=== PATIENT | female | born 1935 | race Caucasian/White ===

== ENCOUNTER 2020-04-25 22:05 | Inpatient (IN) | payer MEDICARE, SELFPAY ==
[2020-04-25 22:06] VITALS: BP 171/62; PULSE 69; RESP 18; TEMP 37.1; O2SAT 95; BMI 28.6
--- NOTE | 2020-04-25 22:35 | RAD_ITS ---
STUDY: X-RAY - PELVIS AND LEFT HIP REASON FOR EXAM: Female, 85 years old. fall today. left hip pain. TECHNIQUE: 3 views of the pelvis and hip. COMPARISON: None. FINDINGS: Fracture of the left superior and inferior pubic symphysis, age indeterminate. No additional fracture. Hip joints are well-maintained. No dislocation. Soft tissues and bony structures are otherwise unremarkable. RAD/HIP, UNI W/ Pelvis 2-3 Views IMPRESSION: Suspected fractures of the left superior and inferior pubic rami, age indeterminate. Electronically Signed: Jada Rider MD at 22:57 EST Tel , Service support ,
--- NOTE | 2020-04-25 23:29 | ED.DCSUM_ITS ---
- ER Visit Summary Date of Service: 04/25/20 Chief Complaint: Fall History of Present Illness: The patient is a 85 F presenting after mechanical fall. Patient states she turned quickly in her kitchen and fell onto her left hip. She was unable to get up and EMS was called. She denies hitting her head or losing consciousness. She is not on anticoagulants. Denies symptoms prior to the fall. She complains of left hip and left medial thigh pain. Denies other injuries. Physical Examination: Vitals are stable. Patient is afebrile. Alert no acute distress. HEENT exam is unremarkable. Neck is nontender Lungs are clear and equal bilaterally. Heart is regular rate and rhythm. Abdomen is soft nontender nondistended. Extremities left medial thigh tenderness. Painful range of motion. Normal distal pulses Skin is warm and dry. No focal neurologic deficit. Remainder of exam is unremarkable. Emergency Department Course and Treatment: Patient is given morphine, Zofran IV. Left hip x-ray was interpreted by myself and radiology suspected fractures of the left superior and inferior pubic rami, age indeterminate. Patient is unable to ambulate with a walker in the emergency department. Discussed with the hospitalist for observation. Disposition: Observation Impression: Status post mechanical fall, left superior and inferior pubic rami fracture, inability to ambulate This note was generated with [employer] dictation software. It may contain incorrect words, spelling, and punctuation that were not noted in review of the chart prior to signing ED Disposition - Plan for ED Patient: Referrals: Naren Mendez PA [Primary Care Provider] -
--- NOTE | 2020-04-25 23:29 | HP.PCM_ITS ---
Problem List (1) Fall Status: Acute (2) Pubic ramus fracture Status: Acute History of Present Illness Date of Admission: 04/25/20 Chief Complaint: FALL The patient is a 85 year old F with a significant history of hypertension; osteoporosis; and hyperlipidemia who presents emergency department with a fall. 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 She reports excruciating pain at the left hip to the point that she could not get up immediately. The pain at the left hip worsens with movement and it improves with rest. Per emergent department doctor patient could not walk so admission was recommended. Past Medical History Medical History: Medical History (Last Updated 04/26/20 @ 02:[address] Wesly Monae MD) HTN (hypertension) I10 Allergies clarithromycin [From Biaxin] Allergy (Mild, Verified 08/02/13 19:22) Hives Home Medications: Ambulatory Orders Medication Instructions Recorded Vitamin D QWEEK 08/02/13 Atenolol [Tenormin (beta Alexander)] 25 mg PO DAILY 04/25/20 Hydrochlorothiazide [Hctz] 25 mg PO DAILY 04/25/20 Pravastatin [Pravachol] 20 mg PO DAILY 04/25/20 Alendronate Sodium [Fosamax] 70 mg QWEEK 04/26/20 Surgical History: appendectomy, herniorrhaphy Smoking Status: Former smoker Alcohol: Occasional - *Family History Maternal History Items: Cancer - Breast Paternal History Items: - - His father had his leg amputated after an accident. Review of Systems Constitutional: Denies: Chills, Fever, Weight Change HEENT: Denies: Head Aches, Sinus Congestion, Sinus Drainage Cardiovascular: Denies: Chest Pain, Palpitations Respiratory: Denies: Cough, Shortness of breath at rest, Sputum production Gastrointestinal: Denies: Abdominal Pain, Nausea, Vomiting Genitourinary: Denies: Dysuria Musculoskeletal: Reports: Joint Pain - Left hip, Joint Tenderness. Denies: Back Pain Skin: Denies: Rash, Wounds Neurological: Denies: Numbness, Tingling, Focal weakness Psychiatric: Denies: Anxiety, Depression, Homicidal Ideations, Suicidal Ideations Hematologic/ Lymphatic: Denies: Easy Bruising, Easy Bleeding VTE Information - Inpt Only VTE Present on Admission: No VTE Mechan Device Prophylaxis: None VTE Pharm Prophylaxis ordered?: Yes Patient Problems: Active and Suspected Problems (Last Updated 04/26/20 @ 02:[address] Wesly Monae MD) Fall (Acute) Pubic ramus fracture (Acute) - Physical Exam Vitals/I&O's: Vital Signs Temp Pulse Resp BP Pulse Ox 98.7 F 69 18 171/62 H 95 04/25/20 22:06 04/25/20 22:06 04/25/20 22:06 04/25/20 22:06 04/25/20 22:06 Oxygen Delivery Method Room Air Weight: 75.7 kg Body Mass Index (BMI) 28.6 General: Alert, Oriented x3, Cooperative HEENT: Atraumatic, PERRLA, EOMI, Normocephalic Neck: Supple, No JVD, Negative Carotid Bruits Lungs: Clear to auscultation, Normal air movement, No rhonchi, No wheeze, No rales Cardiovascular: Regular rate, Regular Rhythm, Normal S1, Normal S2, No murmurs Abdomen: Bowel Sounds Present, Soft, Non Tender Extremities: No edema, Capillary Refill Less than 3 Seconds Skin: No rashes, No breakdown Musculoskeletal: No Tenderness to Palpation of Joints or Extremities Neurological: Cranial nerves II-XII grossly intact Psych/Mental Status: Normal Affect, Appropriate Assessment/Plan All Active Problems (Last Updated 04/26/20 @ 02:[address] Wesly Monae MD) Fall (Acute) Pubic ramus fracture (Acute) The patient is a 85 year old F with a significant history of hypertension; osteoporosis; and hyperlipidemia who presents emergency department with a fall landing on her left hip and found to have left superior and inferior pubic rami fractures. Fall with left superior and inferior pubic rami fractures Impression of hip/pelvis x-ray by radiologist. Suspected fractures of the left superior and inferior pubic rami, age indeterminate. Hip/pelvis x-ray was independently interpreted. I agree with radiologist interpretation. Received morphine at the emergency department. Will order as needed oxycodone. Antiemetics and bowel protocol in place. Toe-touch weightbearing on left lower extremities. PT and OT to work with patient. On home vitamin D weekly and biphosphonate's weekly. Check vitamin D level. Hypokalemia Potassium was 3.0 on presentation. Patient on diuretics that could be contributing. IV and p.o. potassium ordered for replacement. Trend BMP. Hypertension On presentation blood pressure was now within goal. Likely pain contributing Atenolol and hydrochlorothiazide continued Treat pain as above Trend blood pressure and adjust blood pressure medication as necessary Leukocytosis White count of 11.8 and bandemia on presentation Likely reactive Trend Hyperlipidemia Pravastatin continued DVT prophylaxis Subcutaneous Lovenox. OBSV E&M: 33883 Initial observation care L2
[2020-04-25 23:33] LABS: Absolute Lymphocyte Count 0.94 X10^3/uL (0.83-4.51); Absolute Neutrophil Count 9.9 X10^3/uL (2.0-7.7); Basophil# 0.06 X10^3/uL; Basophil% 0.5 % (0-1); Eosinophil# 0.24 X10^3/uL; Hematocrit 35.5 % (37-47); Lymphocyte # 0.94 X10^3/ul (4.0); Mean Corp Hgb Conc 33.8 g/dL (32-36); Mean Corpuscular Hgb 29.6 pg (27.0-32.0); Mean Corpuscular Volume 87.7 fL (81-99); Monocyte# 0.52 X10^3/uL; Monocyte% 4.4 % (0-10); NRBC Flagged by Analyzer 0 % (0-5); Neutrophil # 9.93 X10^3/uL (2.7-7.7); Platelet Count 233 K/mm3 (150-450); RBC Distribution Width CV 13.3 % (11.6-14.6); RBC Distribution Width SD 42.6 fl (35.1-43.9); Red Blood Count 4.05 M/mm3 (4.2-5.4); White Blood Count 11.8 K/mm3 (4.4-11.0)
[2020-04-25 23:43] VITALS: BP 167/64; PULSE 79; RESP 16; TEMP 37; O2SAT 94
[2020-04-25] MEDS: Morphine 2 MG/ML Syringe IV (23:43)
[2020-04-25] MEDS: Ondansetron 4 MG/2 ML Vial IV (23:43)
[2020-04-25 23:46] LABS: Anion Gap 8 (5-15); BUN 15 mg/dL (7-18); BUN/Creat Ratio 18.1 RATIO (10-20); Chloride 99 mmol/L (98-107); Creatinine, Serum 0.83 mg/dL (0.55-1.02); EST Glomerular Filtration Rate 70 mL/min (>60); Est Glom Filt Rate - Afr Amer 84 mL/min (>60); Estimated Creatinine Clearance 42.01 ml/min; Glucose 111 mg/dL (74-106); Sodium Level 134 mmol/L (136-145)
[2020-04-26 00:07] VITALS: BMI 28.9
[2020-04-26 00:11] LABS: Vitamin D,25 Hydroxy 103.6 ng/mL
[2020-04-26 00:15] VITALS: BMI 28.9
[2020-04-26 00:19] VITALS: BP 143/63; PULSE 61; RESP 18; TEMP 37.1; O2SAT 97
[2020-04-26] MEDS: Potassium Chloride 10mEq/100mL 10 MEQ/100 ML IV.SOLN. 100 MEQ IV BOLUS ×4 (01:47→05:03)
[2020-04-26] MEDS: 0.9% Saline Lock 10 ML Syringe IV ×3 (01:47→06:19)
[2020-04-26] MEDS: oxyCODONE 5 MG Tablet PO ×2 (02:01→20:14)
[2020-04-26] MEDS: Acetaminophen 325 MG Tablet 650 MG PO ×2 (02:02→20:13)
[2020-04-26 06:18] VITALS: BP 125/59; PULSE 55; RESP 16; TEMP 37; O2SAT 96
[2020-04-26 07:11] LABS: Absolute Lymphocyte Count 1.14 X10^3/uL (0.83-4.51); Absolute Neutrophil Count 6.6 X10^3/uL (2.0-7.7); Basophil# 0.04 X10^3/uL; Basophil% 0.5 % (0-1); Eosinophil# 0.12 X10^3/uL; Eosinophils% 1.4 % (0-5); Hematocrit 31.9 % (37-47); Hemoglobin 10.6 g/dL (12.0-15.0); Lymphocyte # 1.14 X10^3/ul (4.0); Lymphocyte % 13.3 % (19-41); Mean Corp Hgb Conc 33.2 g/dL (32-36); Mean Corpuscular Hgb 29.2 pg (27.0-32.0); Mean Corpuscular Volume 87.9 fL (81-99); Monocyte# 0.63 X10^3/uL; Monocyte% 7.3 % (0-10); NRBC Flagged by Analyzer 0 % (0-5); Neutrophil # 6.62 X10^3/uL (2.7-7.7); Platelet Count 213 K/mm3 (150-450); RBC Distribution Width CV 13.5 % (11.6-14.6); RBC Distribution Width SD 43.8 fl (35.1-43.9); Red Blood Count 3.63 M/mm3 (4.2-5.4); White Blood Count 8.6 K/mm3 (4.4-11.0)
[2020-04-26 07:24] VITALS: O2SAT 95
[2020-04-26 07:48] LABS: Anion Gap 5 (5-15); BUN 15 mg/dL (7-18); BUN/Creat Ratio 17.8 RATIO (10-20); Calcium,Total 8.4 mg/dL (8.5-10.1); Chloride 99 mmol/L (98-107); Creatinine, Serum 0.84 mg/dL (0.55-1.02); EST Glomerular Filtration Rate 68 mL/min (>60); Est Glom Filt Rate - Afr Amer 82 mL/min (>60); Estimated Creatinine Clearance 38.02 ml/min; Glucose 90 mg/dL (74-106); Potassium 4.8 mmol/L (3.5-5.1); Sodium Level 132 mmol/L (136-145)
[2020-04-26 09:15] VITALS: BP 126/51; PULSE 65; RESP 18; TEMP 36.8; O2SAT 95
[2020-04-26] MEDS: Enoxaparin 40 MG/0.4 ML Syringe SC (09:21)
[2020-04-26] MEDS: hydroCHLOROthiazide 25 MG Tablet PO (09:21)
[2020-04-26] MEDS: Atenolol 25 MG Tablet PO (09:21)
--- NOTE | 2020-04-26 12:30 | CASEMGMT ---
SOCIAL WORK Informant: Toshia JOVEL Reason for Consult: Discharge Planning Therapy completing eval upon this worker entering room. Per therapy, patient unable to maintain weight bearing status and recommending rehab prior to home going. Met with patient in room. Introduced role and reason for referral. Patient A&OX3. Patient states lives at home with in a 1 story home with basement. Patient discussed fall reporting she was clearing the table and walking to sink with dishes when she took a wrong step and fell. Discussed therapy recommendations-rehab prior to home going. Patient unsure with plan at this time and states will discuss with . Education provided on facilities and patient given list. SW to follow up Tuesday. Plan: ERICKSON, WILLIAM to follow up Tuesday. Mustapha Zepeda, VOCATIONAL REHABILITATION SPECIALIST, SOFTWARE DEVELOPMENT TEST ENGINEER
--- NOTE | 2020-04-26 13:59 | PN_ITS ---
Patient Problems: Active and Suspected Problems (Last Updated 04/26/20 @ 02:[address] Wesly Monae MD) Fall (Acute) Pubic ramus fracture (Acute) Objective: Seen and examined. Patient complaining of pain mainly in the left buttock and groin region with radiation to thigh. Has history of osteoporosis and is on calcium supplement and Fosamax. Denies syncope. 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 Her pain in the left hip and groin region is mainly on movement of left hip or changing posture. Physical exam General: Alert, Oriented x3, Cooperative HEENT: Atraumatic, PERRLA, EOMI, Normocephalic Oral: No Gingival or Mucosal Lesions/ Ulcerations Neck: Supple, No JVD, Negative Carotid Bruits Lungs: Air entry equal in bilateral lung bases. No crepitation/rhonchi Cardiovascular: Regular rate, Regular Rhythm, Normal S1, Normal S2, No murmurs Abdomen: Bowel Sounds Present, Soft, Non Tender, Non-Distended : No renal angle tenderness. No suprapubic tenderness. Extremities: No edema, Capillary Refill Less than 3 Seconds Skin: No rashes, No breakdown Musculoskeletal: Tenderness present on left pubic/pelvic bone. Range of motion passive and active not possible because of pain. Neurological: Cranial nerves II-XII grossly intact, Deep Tendon Reflexes 2+/4 and Symmetrical, Neuro grossly intact Psych/Mental Status: Normal Affect, Appropriate. Vitals/I&O's: Vital Signs Temp Pulse Resp BP Pulse Ox 98.2 F 65 18 126/51 H 95 04/26/20 09:15 04/26/20 09:15 04/26/20 09:15 04/26/20 09:15 04/26/20 09:15 Oxygen Delivery Method Room Air Weight: 158 lb 1.143 oz Body Mass Index (BMI) 28.9 Intake and Output for Last 24 Hours 04/24/20 04/25/20 04/26/20 23:59 23:59 23:59 Intake Total 1060 / 1060 Output Total 1750 / 1750 Balance -690 / -690 Laboratory Results 04/25/20 23:25: WBC 11.8 H, RBC 4.05 L, Hgb 12.0, Hct 35.5 L, MCV 87.7, MCH 29.6, MCHC 33.8, RDW Std Deviation 42.6, RDW Coeff of Jack 13.3, Plt Count 233, MPV 9.0, Immature Gran % (Auto) 1.100 H, Neut % (Auto) 84.0 H, Lymph % (Auto) 8.0 L, Kendall % (Auto) 4.4, Eos % (Auto) 2.0, Baso % (Auto) 0.5, Absolute Neuts (auto) 9.9 H, Absolute Lymphs (auto) 0.94, Nucleated RBC % 0 04/25/20 23:25: Sodium 134 L, Potassium 3.0 L, Chloride 99, Carbon Dioxide 27.0, Anion Gap 8, BUN 15, Creatinine 0.83, Estim Creat Clear Calc 42.01, Est GFR (MDRD) Af Amer 84, Est GFR (MDRD) Non-Af 70, BUN/Creatinine Ratio 18.1, Glucose 111 H, Calcium 9.0 04/25/20 23:40: Vitamin D 25-Hydroxy 103.6 04/26/20 06:50: WBC 8.6, RBC 3.63 L, Hgb 10.6 L, Hct 31.9 L, MCV 87.9, MCH 29.2, MCHC 33.2, RDW Std Deviation 43.8, RDW Coeff of Jack 13.5, Plt Count 213, MPV 9.0, Immature Gran % (Auto) 0.500, Neut % (Auto) 77.0 H, Lymph % (Auto) 13.3 L, Kendall % (Auto) 7.3, Eos % (Auto) 1.4, Baso % (Auto) 0.5, Absolute Neuts (auto) 6.6, Absolute Lymphs (auto) 1.14, Nucleated RBC % 0 04/26/20 06:50: Sodium 132 L, Potassium 4.8, Chloride 99, Carbon Dioxide 28.0, Anion Gap 5, BUN 15, Creatinine 0.84, Estim Creat Clear Calc 38.02, Est GFR (MDRD) Af Amer 82, Est GFR (MDRD) Non-Af 68, BUN/Creatinine Ratio 17.8, Glucose 90, Calcium 8.4 L Current Medications Acetaminophen (Acetaminophen 325 Mg Tablet) 650 mg PO Q6H PRN PRN PRN Reason: Pain Score 1-10/Temp > 100.7 F Last Admin: 12/19/20 02:02 Dose: 650 mg Documented by: Alendronate Sodium (Alendronate Sodium 70 Mg Tablet) 70 mg PO QWEEK [facility] Atenolol (Atenolol 25 Mg Tablet) 25 mg PO DAILY [facility] Last Admin: 04/26/20 09:21 Dose: 25 mg Documented by: Enoxaparin Sodium (Enoxaparin 40 Mg/0.4 Ml Syringe) 40 mg SC DAILY [facility] Last Admin: 04/26/20 09:21 Dose: 40 mg Documented by: Hydrochlorothiazide (Hydrochlorothiazide 25 Mg Tablet) 25 mg PO DAILY [facility] Last Admin: 04/26/20 09:21 Dose: 25 mg Documented by: Sodium Chloride () 250 mls @ 15 mls/hr IV .[id number] PRN PRN Reason: Saline Flush Melatonin (Melatonin 3 Mg Tablet) 3 mg PO QHS PRN PRN PRN Reason: INSOMNIA Ondansetron HCl (Ondansetron 4 Mg/2 Ml Vial) 4 mg IV Q8H PRN PRN PRN Reason: NAUSEA/VOMITING Oxycodone HCl (Oxycodone 5 Mg Tablet) 5 mg PO Q4H PRN PRN PRN Reason: Pain Score 4-5 Last Admin: 04/26/20 02:01 Dose: 5 mg Documented by: Oxycodone HCl (Oxycodone 5 Mg Tablet) 10 mg PO Q4H PRN PRN PRN Reason: Pain Score 6-10 Pravastatin Sodium (Pravastatin 20 Mg Tablet) 20 mg PO QHS [facility] Senna/Docusate Sodium (Senna/Docusate Sodium 1 Tablet) 2 tablet PO BID PRN PRN PRN Reason: Constipation Sodium Chloride (0.9% Saline Lock 10 Ml Syringe) 10 - 40 ml IV UD PRN PRN Reason: SALINE FLUSH Last Admin: 04/26/20 06:19 Dose: 10 ml Documented by: Medical Necessity - Tobacco Use Smoking Status: Former smoker Assessment/Plan All Active Problems (Last Updated 04/26/20 @ 02:[address] Wesly Monae MD) Fall (Acute) Pubic ramus fracture (Acute) The patient is a 85 year old F with a significant history of hypertension; osteoporosis; and hyperlipidemia [facility] landing on her left hip and found to have left superior and inferior pubic rami fractures on x-ray. 1. Mechanical fall with acute, pathological fracture of left superior and inferior pubic rami. Radiologist reported as age indeterminant but clinically looks after fall and acute in nature. Pain control. Patient was seen by physical therapist and recommended additional therapy and SNF. Muscle relaxant as needed. Continue vitamin D and bisphosphonate. Vitamin D level is 103. Hypokalemia: Potassium was 3.0. Potassium replaced repeat K is 4.8 Hypertension: Blood pressure is controlled. On atenolol and HCTZ. Leukocytosis reactive due to fall: WBC count 11.8 and bandemia on presentation: Resolved. Repeat WBC count 8.6 thousand. Hyperlipidemia Pravastatin continued DVT prophylaxis Subcutaneous Lovenox. Clinical Impression(s) from Imaging Studies Hip/Pelvis X-Ray 04/25/20 22:35 IMPRESSION: Suspected fractures of the left superior and inferior pubic rami, age indeterminate. Laboratory Results 04/25/20 23:25: WBC 11.8 H, RBC 4.05 L, Hgb 12.0, Hct 35.5 L, MCV 87.7, MCH 29.6, MCHC 33.8, RDW Std Deviation 42.6, RDW Coeff of Jack 13.3, Plt Count 233, MPV 9.0, Immature Gran % (Auto) 1.100 H, Neut % (Auto) 84.0 H, Lymph % (Auto) 8.0 L, Kendall % (Auto) 4.4, Eos % (Auto) 2.0, Baso % (Auto) 0.5, Absolute Neuts (auto) 9.9 H, Absolute Lymphs (auto) 0.94, Nucleated RBC % 0 04/25/20 23:25: Sodium 134 L, Potassium 3.0 L, Chloride 99, Carbon Dioxide 27.0, Anion Gap 8, BUN 15, Creatinine 0.83, Estim Creat Clear Calc 42.01, Est GFR (MDRD) Af Amer 84, Est GFR (MDRD) Non-Af 70, BUN/Creatinine Ratio 18.1, Glucose 111 H, Calcium 9.0 04/25/20 23:40: Vitamin D 25-Hydroxy 103.6 04/26/20 06:50: WBC 8.6, RBC 3.63 L, Hgb 10.6 L, Hct 31.9 L, MCV 87.9, MCH 29.2, MCHC 33.2, RDW Std Deviation 43.8, RDW Coeff of Jack 13.5, Plt Count 213, MPV 9.0, Immature Gran % (Auto) 0.500, Neut % (Auto) 77.0 H, Lymph % (Auto) 13.3 L, Kendall % (Auto) 7.3, Eos % (Auto) 1.4, Baso % (Auto) 0.5, Absolute Neuts (auto) 6.6, Absolute Lymphs (auto) 1.14, Nucleated RBC % 0 04/26/20 06:50: Sodium 132 L, Potassium 4.8, Chloride 99, Carbon Dioxide 28.0, Anion Gap 5, BUN 15, Creatinine 0.84, Estim Creat Clear Calc 38.02, Est GFR (MDRD) Af Amer 82, Est GFR (MDRD) Non-Af 68, BUN/Creatinine Ratio 17.8, Glucose 90, Calcium 8.4 L Inpatient E&M: 23608 Subs Hosp L2
[2020-04-26] MEDS: cycloBENZAPRine HCl 10 MG Tablet PO (14:29)
[2020-04-26 14:37] VITALS: BP 152/69; PULSE 66; RESP 18; TEMP 37.1; O2SAT 97
[2020-04-26 20:05] VITALS: BP 122/63; PULSE 69; RESP 16; TEMP 36.8; O2SAT 95
[2020-04-26] MEDS: Pravastatin 20 MG Tablet PO (20:13)
[2020-04-27 02:28] VITALS: BP 105/51; PULSE 58; RESP 16; TEMP 36.5; O2SAT 94
[2020-04-27 05:48] VITALS: BP 123/59; PULSE 56; RESP 16; TEMP 36.8; O2SAT 93
[2020-04-27] MEDS: cycloBENZAPRine HCl 10 MG Tablet PO ×2 (05:50→14:03)
--- NOTE | 2020-04-27 07:27 | PCM.PN.HOSP ---
Patient Problems: Active and Suspected Problems (Last Updated 04/26/20 @ 02:[address] Wesly Monae MD) Fall (Acute) Pubic ramus fracture (Acute) Reason for Visit: Follow-up for left pelvic fracture Objective: Patient heart rate and blood pressure is normal. No fever. Still has pain over left groin and unable to sit up or stand up independently. Patient needed assistance for transfer Physical exam General: Alert, Oriented x3, Cooperative HEENT: Atraumatic, PERRLA, EOMI, Normocephalic Oral: No Gingival or Mucosal Lesions/ Ulcerations Neck: Supple, No JVD, Negative Carotid Bruits Lungs: Air entry diminished in bilateral lung bases. No crepitation/rhonchi Cardiovascular: Regular rate, Regular Rhythm, Normal S1, Normal S2, No murmurs Abdomen: Bowel Sounds Present, Soft, Non Tender, Non-Distended : No renal angle tenderness. No suprapubic tenderness. Extremities: No edema, Capillary Refill Less than 3 Seconds Skin: No rashes, No breakdown Musculoskeletal: Tenderness in the left pelvic bone. No Tenderness to Palpation of her joints or Extremities. Any passive or active movement of left lower extremity is painful. Neurological: Cranial nerves II-XII grossly intact, Deep Tendon Reflexes 2+/4 and Symmetrical, Neuro grossly intact Psych/Mental Status: Normal Affect, Appropriate. Vitals/I&O's: Vital Signs Temp Pulse Resp BP Pulse Ox 98.3 F 56 L 16 123/59 H 93 04/27/20 05:48 04/27/20 05:48 04/27/20 05:48 04/27/20 05:48 04/27/20 05:48 Oxygen Delivery Method Room Air Weight: 158 lb 1.143 oz Body Mass Index (BMI) 28.9 Intake and Output for Last 24 Hours 04/25/20 04/26/20 04/27/20 23:59 23:59 23:59 Intake Total 1420 / 1720 500 / 500 Output Total 2100 / 2275 475 / 475 Balance -680 / -555 / Laboratory Results 04/26/20 06:50: Sodium 132 L, Potassium 4.8, Chloride 99, Carbon Dioxide 28.0, Anion Gap 5, BUN 15, Creatinine 0.84, Estim Creat Clear Calc 38.02, Est GFR (MDRD) Af Amer 82, Est GFR (MDRD) Non-Af 68, BUN/Creatinine Ratio 17.8, Glucose 90, Calcium 8.4 L Current Medications Acetaminophen (Acetaminophen 325 Mg Tablet) 650 mg PO Q6H PRN PRN PRN Reason: Pain Score 1-10/Temp > 100.7 F Last Admin: 04/26/20 20:13 Dose: 650 mg Documented by: Alendronate Sodium (Alendronate Sodium 70 Mg Tablet) 70 mg PO QWEEK [facility] Atenolol (Atenolol 25 Mg Tablet) 25 mg PO DAILY [facility] Last Admin: 04/26/20 09:21 Dose: 25 mg Documented by: Cyclobenzaprine HCl (Cyclobenzaprine Hcl 10 Mg Tablet) 10 mg PO TID PRN PRN PRN Reason: MUSCLE pain Last Admin: 04/27/20 05:50 Dose: 10 mg Documented by: Enoxaparin Sodium (Enoxaparin 40 Mg/0.4 Ml Syringe) 40 mg SC DAILY [facility] Last Admin: 04/26/20 09:21 Dose: 40 mg Documented by: Hydrochlorothiazide (Hydrochlorothiazide 25 Mg Tablet) 25 mg PO DAILY [facility] Last Admin: 04/26/20 09:21 Dose: 25 mg Documented by: Sodium Chloride () 250 mls @ 15 mls/hr IV .[id number] PRN PRN Reason: Saline Flush Melatonin (Melatonin 3 Mg Tablet) 3 mg PO QHS PRN PRN PRN Reason: INSOMNIA Ondansetron HCl (Ondansetron 4 Mg/2 Ml Vial) 4 mg IV Q8H PRN PRN PRN Reason: NAUSEA/VOMITING Oxycodone HCl (Oxycodone 5 Mg Tablet) 5 mg PO Q4H PRN PRN PRN Reason: Pain Score 4-5 Last Admin: 04/26/20 20:14 Dose: 5 mg Documented by: Oxycodone HCl (Oxycodone 5 Mg Tablet) 10 mg PO Q4H PRN PRN PRN Reason: Pain Score 6-10 Pravastatin Sodium (Pravastatin 20 Mg Tablet) 20 mg PO QHS [facility] Last Admin: 04/26/20 20:13 Dose: 20 mg Documented by: Senna/Docusate Sodium (Senna/Docusate Sodium 1 Tablet) 2 tablet PO BID PRN PRN PRN Reason: Constipation Sodium Chloride (0.9% Saline Lock 10 Ml Syringe) 10 - 40 ml IV UD PRN PRN Reason: SALINE FLUSH Last Admin: 04/26/20 06:19 Dose: 10 ml Documented by: STROKE Vital Signs/Narrative: Vital Signs Temp Pulse Resp BP Pulse Ox 04/27/20 05:48 98.3 F 56 L 16 123/59 H 93 Medical Necessity - Tobacco Use Smoking Status: Former smoker Assessment/Plan All Active Problems (Last Updated 04/26/20 @ 02:[address] Wesly Moane MD) Fall (Acute) Pubic ramus fracture (Acute) The patient is a 85 year old F with a significant history of hypertension; osteoporosis; and hyperlipidemia who [facility] fall landing on her left hip and found to have left superior and inferior pubic rami fractures on x-ray. 1. Mechanical fall with acute, pathological fracture of left superior and inferior pubic rami. Radiologist reported as age indeterminant but clinically looks after fall and acute in nature. Pain control. Patient was seen by physical therapist and recommended additional therapy and SNF. Muscle relaxant as needed. Continue vitamin D and bisphosphonate. Vitamin D level is 103. 04/27: Plan is for continued rehab and SNF placement. Hypokalemia: Potassium was 3.0. Potassium replaced repeat K is 4.8 Hypertension: Blood pressure is controlled. On atenolol and HCTZ. Leukocytosis reactive due to fall: WBC count 11.8 and bandemia on presentation: Resolved. Repeat WBC count 8.6 thousand. Hyperlipidemia Pravastatin continued DVT prophylaxis Subcutaneous Lovenox. Clinical Impression(s) from Imaging Studies Hip/Pelvis X-Ray 04/25/20 22:35 IMPRESSION: Suspected fractures of the left superior and inferior pubic rami, age indeterminate. Laboratory Results 04/25/20 23:40: Vitamin D 25-Hydroxy 103.6 04/26/20 06:50: WBC 8.6, RBC 3.63 L, Hgb 10.6 L, Hct 31.9 L, MCV 87.9, MCH 29.2, MCHC 33.2, RDW Std Deviation 43.8, RDW Coeff of Jack 13.5, Plt Count 213, MPV 9.0, Immature Gran % (Auto) 0.500, Neut % (Auto) 77.0 H, Lymph % (Auto) 13.3 L, [place] % (Auto) 7.3, Eos % (Auto) 1.4, Baso % (Auto) 0.5, Absolute Neuts (auto) 6.6, Absolute Lymphs (auto) 1.14, Nucleated RBC % 0 04/26/20 06:50: Sodium 132 L, Potassium 4.8, Chloride 99, Carbon Dioxide 28.0, Anion Gap 5, BUN 15, Creatinine 0.84, Estim Creat Clear Calc 38.02, Est GFR (MDRD) Af Amer 82, Est GFR (MDRD) Non-Af 68, BUN/Creatinine Ratio 17.8, Glucose 90, Calcium 8.4 L Inpatient E&M: [id number] Subs Hosp L2
[2020-04-27 07:52] VITALS: O2SAT 93
[2020-04-27 08:09] VITALS: BP 102/70; PULSE 58; RESP 16; TEMP 36.8; O2SAT 94
[2020-04-27] MEDS: Enoxaparin 40 MG/0.4 ML Syringe SC (08:14)
[2020-04-27] MEDS: hydroCHLOROthiazide 25 MG Tablet PO (08:14)
[2020-04-27] MEDS: Atenolol 25 MG Tablet PO (08:14)
[2020-04-27] MEDS: Acetaminophen 325 MG Tablet 650 MG PO (08:16)
[2020-04-27] MEDS: oxyCODONE 5 MG Tablet PO (08:16)
[2020-04-27 13:56] VITALS: BP 122/58; PULSE 55; RESP 18; TEMP 36.8; O2SAT 95
[2020-04-27] MEDS: oxyCODONE 5 MG Tablet 10 MG PO ×2 (14:04→20:24)
[2020-04-27 20:11] VITALS: BP 111/76; PULSE 65; RESP 16; TEMP 37.1; O2SAT 93
[2020-04-27] MEDS: Senna/Docusate Sodium 1 Tablet 2 TABLET PO (20:24)
[2020-04-27] MEDS: Pravastatin 20 MG Tablet PO (20:24)
[2020-04-28 02:13] VITALS: BP 121/61; PULSE 65; RESP 16; TEMP 36.9; O2SAT 95
[2020-04-28] MEDS: cycloBENZAPRine HCl 10 MG Tablet PO ×2 (02:18→12:40)
--- NOTE | 2020-04-28 09:45 | CASEMGMT ---
Addendum entered by Aminata Cristina 04/28/20 11:02: WILLIAM received call from Lisa in [facility] stating [facility] is able to accept pt today. Physician updated. SW in to speak with pt. SW updated pt that [facility] is able to accept pt today, will likely discharge today. Pt states understanding. Plan: [facility] today Aminata GROVER, [employer]MER BABYSITTER Original Note: Social Work Note SW received referral for possible [facility]. WILLIAM placed a call to referral line and spoke with Lisa. Lisa states [facility] would have a bed availably today, will speak with [facility] physician regarding referral. WILLIAM in to speak with pt. WILLIAM introduced self and role at [facility]. Pt is alert and orientated. Pt states she prefers to stay at [facility]. WILLIAM explained that this worker has a referral sent out to , waiting for approval. Pt states understanding. Plan: [facility] pending acceptance Aminata GROVER, [employer] BABYSITTER
[2020-04-28 10:04] VITALS: BP 119/75; PULSE 69; RESP 16; TEMP 36.9; O2SAT 95
[2020-04-28] MEDS: Atenolol 25 MG Tablet PO (10:33)
[2020-04-28] MEDS: hydroCHLOROthiazide 25 MG Tablet PO (10:33)
[2020-04-28] MEDS: Enoxaparin 40 MG/0.4 ML Syringe SC (10:33)
[2020-04-28] MEDS: Alendronate Sodium 70 MG Tablet PO (10:33)
--- NOTE | 2020-04-28 11:42 | DCINST_ITS ---
- Discharge Diagnoses Current Active Problems: Current Active and Chronic Problems (Last Updated 04/26/20 @ 02:[address] Wesly Monae MD) Fall (Acute) Pubic ramus fracture (Acute) You will use the following diet at home:: No restrictions Your food should be the consistency of: Regular Your liquids should be the consistency of: Regular/Thin Discharge Activity: Return to Normal Activity Weight Bearing Status: Weight bearing as tolerated Allergies/Adverse Reactions: Allergies clarithromycin [From Biaxin] Allergy (Mild, Verified 08/02/13 19:22) Hives Medications to take at Discharge Vitamin D QWEEK 08/02/13 Atenolol [Tenormin (beta geovanny)] 25 mg PO DAILY 04/25/20 Hydrochlorothiazide [Hctz] 25 mg PO DAILY 04/25/20 Pravastatin [Pravachol] 20 mg PO DAILY 04/25/20 Alendronate Sodium [Fosamax] 70 mg QWEEK 04/26/20 Acetaminophen [Tylenol Tablet] 650 mg PO Q6H PRN PRN tab 04/28/20 Enoxaparin [Lovenox] 40 mg SC DAILY syringe 04/28/20 Oxycodone [Oxyir] 5 mg PO Q4H PRN PRN 1 Days #1 tab 04/28/20 Primary Care Physician: Naren Mendez PA [Primary Care Provider] - Please follow up with your Primary Care Physician in: in 3 weeks Test Results: Test results from this visit will be discussed in further detail at your follow- up appointment, if applicable.
[2020-04-28 14:31] VITALS: BP 129/53; PULSE 62; RESP 16; TEMP 36.9; O2SAT 92
--- NOTE | 2020-05-01 18:12 | DS.PCM_ITS ---
Discharge Date and Diagnosis - Problem List Patient Problems: Active and Suspected Problems (Last Reviewed 04/29/20 @ 12:[address] Idalia Thompson DO) Fall (Acute) Pubic ramus fracture (Acute) L inferior and superior rami fractures Date of Admission: 04/25/20 Date of Discharge: 04/28/20 - Primary Discharge Diagnosis Acute Problems: Active Problems (Last Reviewed 04/29/20 @ 12:[address] Idalia Thompson DO) #1 pubic ramus fracture (Acute) L inferior and superior rami fractures #2 hypokalemia #3 essential hypertension #4 hyperlipidemia - Secondary Discharge Diagnosis Chronic Problems: Chronic Problems (Last Reviewed 04/29/20 @ 12:[address] Idalia Thompson DO) Hypertension (Chronic) Hyperlipidemia (Chronic) Osteoporosis (Chronic) Vitamin D toxicity (Chronic) supplementation may be too high Hospital Course and Treatment Operations: None Procedures: None Summary of Care Provided: The patient is a 85 year old F seen in the emergency room at [facility] after sustaining a mechanical fall at home when she turned quickly in her kitchen at home. Patient was unable to get up and EMS was called, work-up in the emergency room revealed fractures of the left superior and inferior pubic rami, patient was unable to ambulate with a walker in the emergency room and so she was admitted to [place] [address]. She was seen by PT and OT, she had a low potassium on admission and supplemental potassium was given to the patient with correction of the patient's potassium level. It was recommended that the patient consider inpatient rehab services and the rehab floor at [facility] [place] agreed to accept the patient for inpatient rehab services. On 04/28/2020, patient was seen and examined: On examination she appeared in good health and spirits, she does not appear to be in any distress. Vital signs as documented. Skin warm and dry and without overt rashes. Neck without JVD, thyroid appears normal, trachea is midline, neck is supple. Lungs clear, normal air movement was noted. Heart exam notable for regular rhythm, normal sounds and absence of murmurs, rubs or gallops. Abdomen unremarkable and without evidence of organomegaly, masses, or abdominal aortic enlargement, bowel sounds are present in all 4 quadrants, no abdominal tenderness was noted. Extremities nonedematous, no cyanosis was noted, no clubbing was noted. Neuro: Cranial nerves II through XII are grossly intact, no focal motor deficits were noted, sensation to light touch and pinprick is intact, motor exam 5/5 throughout. Psych: Patient is alert and oriented x3, she does not appear anxious or depressed, she does not appear agitated. Patient was transferred to the rehab department at [facility] on 04/28/2020. Patient Problems: Active and Suspected Problems (Last Reviewed 04/29/20 @ 12:[address] Idalia Thompson, DO) Fall (Acute) Pubic ramus fracture (Acute) L inferior and superior rami fractures - Physical Exam Vitals/I&O's: Vital Signs Temp Pulse Resp BP Pulse Ox 98.4 F 62 16 129/53 H 92 04/28/20 14:31 04/28/20 14:31 04/28/20 14:31 04/28/20 14:31 04/28/20 14:31 Oxygen Delivery Method Room Air Weight: 71.7 kg Body Mass Index (BMI) 28.9 Discharge Activity: Return to Normal Activity Weight Bearing Status: Weight bearing as tolerated Home Medications: Medications to take at Discharge Vitamin D QWEEK 08/02/13 Atenolol [Tenormin (beta geovanny)] 25 mg PO DAILY 04/25/20 Hydrochlorothiazide [Hctz] 25 mg PO DAILY 04/25/20 Pravastatin [Pravachol] 20 mg PO DAILY 04/25/20 Alendronate Sodium [Fosamax] 70 mg QWEEK 04/26/20 Acetaminophen [Tylenol Tablet] 650 mg PO Q6H PRN PRN tab 04/28/20 Enoxaparin [Lovenox] 40 mg SC DAILY 04/28/20 Oxycodone [Oxyir] 5 mg PO Q4H PRN PRN 1 Days #1 tab 04/28/20 Primary Care Physician: Naren Mendez PA [Primary Care Provider] - Please follow up with your Primary Care Physician in: in 3 weeks Disposition: Inpt Rehab Unit/Facility Minutes spent on discharge:: 32 Patient Condition:: Stable Medical Necessity - Tobacco Use Smoking Status: Former smoker Meaningful Use Info Meaningful Use Diagnoses (Choose all that apply): None applicable Inpatient E&M: 51220 Disch Hosp
== END 2020-04-28 15:40 | DRG 544 ==
LOC: ED 23:18 → MS3 23:31
PROVIDERS: Admitting Provider Hospitalist; Emergency Provider Emergency Medicine; PCP Physician Assistant; Referring Provider Hospitalist; Visit Provider Internal Medicine
DX: M80.0AXA Age-related osteoporosis with current pathological fracture, other site, initial encounter for fracture (principal); E87.6 Hypokalemia; I10 Essential (primary) hypertension; E78.5 Hyperlipidemia, unspecified; W01.0XXA Fall on same level from slipping, tripping and stumbling without subsequent striking against object, initial encounter; Y93.G1 Activity, food preparation and clean up; Y92.000 Kitchen of unspecified non-institutional (private) residence as the place of occurrence of the external cause; Y99.9 Unspecified external cause status; Z79.83 Long term (current) use of bisphosphonates; Z79.899 Other long term (current) drug therapy; Z87.891 Personal history of nicotine dependence
CPT/HCPCS: 36415; 73502; 80048; 82306; 85025; 97162; 97165; 97530; 99285; J7040; A4216; J2405

== ENCOUNTER 2020-04-28 15:51 | Inpatient (IN) | payer MEDICARE, SELFPAY ==
[2020-04-28 15:54] VITALS: BP 133/62; PULSE 67; RESP 18; TEMP 36.6; O2SAT 94; BMI 29.1; BMI 72.2
[2020-04-28] MEDS: Magnesium Hydroxide 30 ML UDC PO (18:29)
[2020-04-28 19:52] VITALS: BP 129/68; PULSE 70; RESP 16; TEMP 36.8; O2SAT 93
[2020-04-28 20:20] VITALS: O2SAT 97
[2020-04-28 22:00] VITALS: PULSE 74; RESP 16
[2020-04-28] MEDS: Acetaminophen 500 MG Tablet 1000 MG PO (22:18)
[2020-04-28] MEDS: Pravastatin 20 MG Tablet PO (22:20)
[2020-04-28] MEDS: Senna/Docusate Sodium 1 Tablet 2 TABLET PO (22:20)
[2020-04-29 06:00] VITALS: BP 142/74; BP 144/59; BP 144/66; PULSE 54; PULSE 55; PULSE 61
[2020-04-29] MEDS: 0.9% Saline Lock 10 ML Syringe IV (06:02)
[2020-04-29] MEDS: Enoxaparin 40 MG/0.4 ML Syringe SC (06:02)
[2020-04-29] MEDS: Acetaminophen 500 MG Tablet 1000 MG PO ×3 (06:03→20:27)
[2020-04-29 06:55] VITALS: O2SAT 91
[2020-04-29 08:08] VITALS: BP 137/74; PULSE 60; RESP 16; TEMP 36.9; O2SAT 97
[2020-04-29] MEDS: Atenolol 25 MG Tablet PO (08:17)
[2020-04-29] MEDS: oxyCODONE 5 MG Tablet PO ×2 (08:20→17:23)
--- NOTE | 2020-04-29 10:23 | CASEMGMT ---
Social Work IDT met with patient and via conference call for Team meeting. Discussed patient's progress in therapy. Pt is minx1 for tx, UE ADLs and grooming is set up, using AE for LE dressing at [place]. Pt is TTWBS to left leg and maintaining well. Pt's pain is controlled. Slept well. Explained Medicare benefit. Will ReTeam next week. Will continue to follow. REILLY Mora STATISTICAL SECRETARY
--- NOTE | 2020-04-29 11:37 | PCM.HP.STD ---
Problem List (1) Hypertension Status: Chronic Qualifiers: Hypertension type: essential hypertension Qualified Code(s): I10 - Essential (primary) hypertension (2) Hyperlipidemia Status: Chronic (3) Osteoporosis Status: Chronic Qualifiers: Osteoporosis type: age-related Presence of current pathological fracture: with current pathological fracture Encounter type: subsequent encounter (4) Vitamin D toxicity Status: Chronic Qualifiers: Encounter type: subsequent encounter Injury intent: accidental or unintentional Qualified Code(s): T45.2X1D - Poisoning by vitamins, accidental (unintentional), subsequent encounter Comment: supplementation may be too high (5) Acute blood loss anemia Status: Acute Comment: likely due to bleeding in the pelvis due to acute inferior and superior pubic rami fractures (6) Hypokalemia Status: Resolved (7) Hyponatremia Status: Acute (8) Fall Status: Acute Qualifiers: Encounter type: subsequent encounter Qualified Code(s): W19.XXXD - Unspecified fall, subsequent encounter (9) Pubic ramus fracture Status: Acute Qualifiers: Encounter type: subsequent encounter Fracture type: closed Laterality: left Comment: L inferior and superior rami fractures History of Present Illness Date of Admission: 04/28/20 Chief Complaint: pain and debility due to fall on 04/25/20 causing fractures of the left inferior and superior pubic rami. 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 She was unable to ambulate. X-ray in the emergency room showed suspected fractures of the left superior and inferior pubic rami. She was admitted to the hospital for pain control and PT/OT. She is currently taking a bisphosphonate, alendronate 70 mg weekly. She is also taking a weekly vitamin D supplement, 50,000 units. She was seen by physical therapy on 04/26/2020 and was able to ambulate only 3 feet with a lot of voice cues and assistance to progress the walker and maintain toe-touch weightbearing. Admission to acute inpatient rehab was recommended. She lives in a one-story house with her and prior to the fall was independent with all ADLs. She was ambulating without an assistive device and driving. She was transferred to the inpatient rehab unit at [facility] on 04/28/2020 for greater than 3 hours of therapy daily to restore her at or near her prior level of function. She is tilt negative today. All documentation from the acute hospital stay was reviewed including progress notes, radiology, labs. Hemoglobin is 10.6, down from 12.0, more likely than not secondary to pelvic bleeding related to acute fractures. Sodium is low at 132, down from 134 at admission. Potassium was 3.0 at admission and today is 4.8. BUN is 15 with a creatinine of 0.84 and this is stable. Vitamin D level is 103.6 which is in the low toxic range. Calcium is 8.4 and there is no albumin on the chart. Fabiana is taking 50,000 units once a week of Vitamin D and she is not taking any calcium supplementation. she seems a little unsure about medication and she had a hard time understanding what I told her about Vitamin D. This may be the Flexeril and the Oxycodone causing this. Fabiana follows with Frederick LICONA at the [facility] in [place]. She was seen on team rounds today and her Magdiel participated by phone. [facility] 1 year ago was unremarkable. She is due for a DEXA Colonoscopy 2 years ago for colon polyps Past Medical History Past Medical History (Chronic Problems): Chronic Problems (Last Reviewed 04/29/20 @ 12:[address] Idalia Thompson DO) Hypertension (Chronic) Hyperlipidemia (Chronic) Osteoporosis (Chronic) Vitamin D toxicity (Chronic) supplementation may be too high Medical History: Medical History (Last Reviewed 04/29/20 @ 12:[address] Idalia Thompson DO) HTN (hypertension) I10 Allergies clarithromycin [From Biaxin] Allergy (Mild, Verified 08/02/13 19:22) Hives Home Medications: Ambulatory Orders Medication Instructions Recorded Vitamin D QWEEK 08/02/13 Atenolol [Tenormin (beta geovanny)] 25 mg PO DAILY 04/25/20 Hydrochlorothiazide [Hctz] 25 mg PO DAILY 04/25/20 Pravastatin [Pravachol] 20 mg PO DAILY 04/25/20 Alendronate Sodium [Fosamax] 70 mg QWEEK 04/26/20 Acetaminophen [Tylenol Tablet] 650 mg PO Q6H PRN PRN tab 04/28/20 Enoxaparin [Lovenox] 40 mg SC DAILY 04/28/20 Oxycodone [Oxyir] 5 mg PO Q4H PRN PRN 1 Days #1 tab 04/28/20 Surgical History: appendectomy, herniorrhaphy, - - surgical repair of a fracture of the left wrist Psychiatric History: No pertinent psych hx POND SAWYER History: No pertinent POND SAWYER history Lives: Spouse/ Significant Other Smoking Status: Former smoker Tobacco Use: Non-smoker Alcohol: Occasional Drugs: None - *Family History Maternal History Items: Cancer - Breast Paternal History Items: - - Her father had his leg amputated after an accident. Review of Systems Constitutional: Denies: Chills, Fever, Weight Change Eyes: Denies: Vision Change HEENT: Reports: - - She is c/o dry mouth. Denies: Difficulty Hearing, Difficulty Swallowing, Head Aches, Nasal Congestion, Sinus Congestion, Sinus Drainage, Sore Throat Cardiovascular: Reports: Edema - of the Left ankle....has had a fracture in the past. Denies: Chest Pain, Chest Pressure, Chest Tightness, Light Headedness, Palpitations, Syncope Respiratory: Denies: Cough, Shortness of Breath, Shortness of breath at rest, Sputum production Gastrointestinal: Reports: Constipation - she got MOM and prune juice this AM, - - Denies any hx of PUD or GI bleeding. Denies: Abdominal Pain, Diarrhea, Nausea, Vomiting Genitourinary: Denies: Dysuria, Frequency, Hesitancy, Incontinence, Retention Gynecological: Denies: Breast symptoms, Vaginal discharge Musculoskeletal: Reports: - - pelvic pain on the left and also c/o low back pain on the left. No pain radiating down the left leg.. Denies: Joint Pain Skin: Denies: Rash, Wounds Neurological: Denies: Numbness, Tingling, Focal weakness Psychiatric: Denies: Anxiety, Depression, Homicidal Ideations, Suicidal Ideations Endocrine: Denies: Change in Body Habitus, Heat/ Cold Intolerance, Hx of Irradiation, Hx of Thyroiditis Hematologic/ Lymphatic: Denies: Easy Bruising, Easy Bleeding, Hx of blood clot VTE Information - Inpt Only VTE Present on Admission: No VTE Mechan Device Prophylaxis: Knee High OC Hose VTE Pharm Prophylaxis ordered?: Yes Patient Problems: Active and Suspected Problems (Last Reviewed 04/29/20 @ 12:[address] Idalia Thompson DO) Fall (Acute) Pubic ramus fracture (Acute) L inferior and superior rami fractures Acute blood loss anemia (Acute) likely due to bleeding in the pelvis due to acute inferior and superior pubic rami fractures Hyponatremia (Acute) - Physical Exam Vitals/I&O's: Vital Signs Temp Pulse Resp BP Pulse Ox 98.5 F 60 16 137/74 H 97 04/29/20 08:08 04/29/20 08:08 04/29/20 08:08 04/29/20 08:08 04/29/20 08:08 Oxygen Delivery Method Room Air Weight: 159 lb 2.78 oz Body Mass Index (BMI) 29.1 Orthostatic Vital Signs Start: 04/28/20 18:21 Freq: 0600 Status: Active Protocol: Activity Type Activity Date Activity User E-Sign Co-Sign Detail Recorded Client Recorded Date Recorded By Document 04/29/20 06:00 CAK [id number] 04/29/20 06:36 CAK 04/29/20 06:00 Orthostatic Vitals Standing -Blood Pressure (90/60-120/80 mm Hg) 142/74 H -Extremity Use Right Arm -Pulse Rate (60-100 beats/min) 61 Sitting -Blood Pressure (90/60-120/80 mm Hg) 144/59 H -Extremity Use Right Arm -Pulse Rate (60-100 beats/min) 54 L Lying -Blood Pressure (90/60-120/80 mm Hg) 144/66 H -Extremity Use Right Arm -Pulse Rate (60-100 beats/min) 55 L Intake and Output for Last 24 Hours 04/27/20 04/28/20 04/29/20 23:59 23:59 23:59 Intake Total 240 / 240 Output Total 600 / 600 Balance -360 / -360 General: Alert, Oriented x3, Cooperative, No apparent distress, Well developed, Well nourished, - - Looks younger than her stated age. HEENT: Atraumatic, EOMI, Normocephalic, - - Pupils are equal round and reactive to light Oral: No Gingival or Mucosal Lesions/ Ulcerations, Dry Mucosa Neck: Supple, No JVD, No Nodes, No Nuchal Rigidity, Trachea Midline, Carotid Bruits, Bilateral - Left greater than right Lungs: Clear to auscultation - Anterior and lateral, No rhonchi, No wheeze, No rales, Diminished Cardiovascular: Regular Rhythm, Normal S1, Normal S2, No murmurs, No Ectopic Activity, Bradycardic, No Gallop, - - heart sounds are somewhat distant Abdomen: Bowel Sounds Present, Soft, Non Tender, Non-Distended, - - No bruits Extremities: No clubbing, No cyanosis, No edema, Capillary Refill Less than 3 Seconds, No Calf Tenderness, Diminished Peripheral Pulses Skin: No rashes, No breakdown Musculoskeletal: Arthritic Changes, - - sometimes has pain in the R medial knee Neurological: Cranial nerves II-XII grossly intact, Neuro grossly intact Psych/Mental Status: Normal Affect, Appropriate Microbiology Past 72 Hours 04/29/20 10:30 Mucosa - Nose SARS-CoV-2 Antigen (Rapid) - Final Current Medications Acetaminophen (Acetaminophen 500 Mg Tablet) 1,000 mg PO Q8 [facility] Last Admin: 04/29/20 06:03 Dose: 1,000 mg Documented by: Alendronate Sodium (Alendronate Sodium 70 Mg Tablet) 70 mg PO QWEEK [facility] Atenolol (Atenolol 25 Mg Tablet) 25 mg PO DAILY [facility] Last Admin: 04/29/20 08:17 Dose: 25 mg Documented by: Bisacodyl (Bisacodyl 10 Mg Suppository) 10 mg RECTAL .PRN X 1 PRN PRN Reason: Constipation Cyclobenzaprine HCl (Cyclobenzaprine Hcl 5 Mg Tablet) 5 mg PO TID PRN PRN PRN Reason: MUSCLE SPASM Enoxaparin Sodium (Enoxaparin 40 Mg/0.4 Ml Syringe) 40 mg SC DAILY@0600 [facility] Stop: 05/12/20 06:01 Last Admin: 04/29/20 06:02 Dose: 40 mg Documented by: Magnesium Hydroxide (Magnesium Hydroxide 30 Ml Udc) 30 ml PO .PRN X 1 PRN PRN Reason: Constipation Last Admin: 04/28/20 18:29 Dose: 30 ml Documented by: Melatonin (Melatonin 3 Mg Tablet) 3 mg PO QHS PRN PRN PRN Reason: SLEEP Oxycodone HCl (Oxycodone 5 Mg Tablet) 5 mg PO Q4H PRN PRN PRN Reason: Pain Score 4-5 Last Admin: 04/29/20 08:20 Dose: 5 mg Documented by: Pravastatin Sodium (Pravastatin 20 Mg Tablet) 20 mg PO QHS [facility] Last Admin: 04/28/20 22:20 Dose: 20 mg Documented by: Senna/Docusate Sodium (Senna/Docusate Sodium 1 Tablet) 2 tablet PO BID [facility] Last Admin: 04/29/20 08:17 Dose: Not Given Documented by: Sodium Chloride (0.9% Saline Lock 10 Ml Syringe) 10 - 40 ml IV PRN PRN PRN Reason: SALINE FLUSH Last Admin: 04/29/20 06:02 Dose: 10 ml Documented by: Assessment/Plan All Active Problems (Last Reviewed 04/29/20 @ 12:[address] Idalia Thompson, DO) Fall (Acute) Pubic ramus fracture (Acute) Acute blood loss anemia (Acute) Hypokalemia (Resolved) Hyponatremia (Acute) Impressions 1. Physical debility secondary to recent fall resulting in acute fractures of the left inferior and superior pubic rami 2. Intractable pain secondary to pelvic fractures with inability to ambulate 3. Acute blood loss anemia likely secondary to bleeding into the pelvis secondary to fractures 4. Hypokalemia-resolved 5. Hyponatremia-more likely than not secondary to chronic hydrochlorothiazide 25 mg daily. she denies any HX of CHF or other heart problems and thinks the HCTZ is used to control the BP. 6. Encephalopathy? due to Flexeril and Oxycodone? No hx of any cognitive dysfunction in the past 7. Bradycardia-she is on atenolol 25 mg p.o. daily and her heart rate is in the 50s when she is lying in bed. Since the cause of the fall is really unknown we need to consider it may be due to orthostatic hypotension or bradycardia. 8. Bilateral carotid bruits PLAN PT for gait stability OT for ADL's ST for evaluation Analgesics as needed Bowel protocol Fall precautions Assess for Anxiety/Depression GI prophylaxis not indicated in this patient without history of peptic ulcer disease who denies epigastric pain, nausea, vomiting. DVT prophylaxis with enoxaparin 40 mg subcu daily Follow up with MONAE Diaz and orthopedics following DC from IP Rehab AM lab including CMP, CBC, Mag and Phos, TSH Change the vitamin D from 50,000 units weekly to 1,000 units BID with Calcium 500 mg BID with food Hydrochlorothiazide has been discontinued Decrease atenolol to 12.5 mg p.o. daily and continue to monitor heart rate. If another antihypertensive is needed since hydrochlorothiazide has been discontinued and atenolol decreased to 12.5 mg daily will choose either amlodipine or hydralazine for its tendency to cause a mild reflex increase in HR. hydralazine 25 mg every 6 hours as needed systolic greater than 160 or diastolic greater than 90. Consider ST eval for cognitive dysfunction at some point during this admission Check the HR before and after exercise Inpatient E&M: 89748 Init Hosp L2
--- NOTE | 2020-04-29 14:37 | CASEMGMT ---
Social Work Discussed code status with pt. Pt wishes to be full code. Nursing notified. Samantha Wall, PLASTER MOLDER REED FIXER
[2020-04-29] MEDS: Calcium Carbonate 500 MG Tablet PO (17:23)
[2020-04-29] MEDS: Calcium Carb/Vitamin D 1 TABLET Tablet PO (17:24)
[2020-04-29 20:00] VITALS: BP 155/85; PULSE 62; RESP 16; TEMP 37; O2SAT 94
[2020-04-29] MEDS: Pravastatin 20 MG Tablet PO (20:27)
[2020-04-30 05:38] LABS: Hemoglobin 11.4 g/dL (12.0-15.0); Mean Corp Hgb Conc 33.5 g/dL (32-36); Mean Corpuscular Hgb 29.2 pg (27.0-32.0); Mean Platelet Vol. 9.4 fl (6.2-12.0); Platelet Count 226 K/mm3 (150-450); RBC Distribution Width CV 13.2 % (11.6-14.6); RBC Distribution Width SD 41.9 fl (35.1-43.9); Red Blood Count 3.91 M/mm3 (4.2-5.4); White Blood Count 5.6 K/mm3 (4.4-11.0)
[2020-04-30] MEDS: Acetaminophen 500 MG Tablet 1000 MG PO ×3 (06:00→21:33)
[2020-04-30] MEDS: Enoxaparin 40 MG/0.4 ML Syringe SC (06:00)
[2020-04-30 06:24] LABS: ALB/GLOB Ratio 0.9 RATIO (0.9-2.4); AST(SGOT) 19 U/L (15-37); Alanine Aminotransfer ALT/SGPT 16 U/L (13-56); Albumin, Serum 2.9 g/dL (3.2-5.0); Alkaline Phosphatase 43 U/L (45-117); Anion Gap 6 (5-15); BUN 12 mg/dL (7-18); BUN/Creat Ratio 17.9 RATIO (10-20); Calcium,Total 8.7 mg/dL (8.5-10.1); Chloride 94 mmol/L (98-107); Creatinine, Serum 0.67 mg/dL (0.55-1.02); EST Glomerular Filtration Rate 89 mL/min (>60); Est Glom Filt Rate - Afr Amer 107 mL/min (>60); Estimated Creatinine Clearance 31.94 ml/min; Globulin 3.2 g/dL (2.2-4.2); Glucose 95 mg/dL (74-106); Magnesium 2.2 mg/dL (1.6-2.6); Phosphorus 3.8 mg/dL (2.5-4.9); Potassium 4.3 mmol/L (3.5-5.1); Protein, Total 6.1 g/dL (6.4-8.2); Sodium Level 129 mmol/L (136-145); Thyroid Stim Hormone (TSH) 2.94 uIU/mL (0.358-3.74)
[2020-04-30 07:00] VITALS: O2SAT 96
[2020-04-30] MEDS: Atenolol 25 MG Tablet 12.5 MG PO (07:48)
[2020-04-30] MEDS: Calcium Carbonate 500 MG Tablet PO ×2 (07:49→17:29)
[2020-04-30] MEDS: Calcium Carb/Vitamin D 1 TABLET Tablet PO ×2 (07:49→17:30)
[2020-04-30] MEDS: oxyCODONE 5 MG Tablet PO ×2 (07:53→17:32)
[2020-04-30 09:22] VITALS: BP 127/68; PULSE 62; RESP 18; TEMP 36.6; O2SAT 96
--- NOTE | 2020-04-30 09:48 | REHABEVAL_ITS ---
Admission Information Primary Diagnosis:: This evaluation was done on 04/29/20 and I forgot to enter. Debility due to fall resulting in fractures of the Left inferior and superior pubic rami. Status Changes from Prescreening?: No changes Identified Actual Problem List:: Falls, Pain, ALteration in Cmfrt, Cognitve Impr/Memory Loss, Alteration in Sleep, Mobility Impaired, Fluid Change-Dehydration, Alteration-Leisure Activ. Potential Problem List:: DVT, Bleeding, Infection, UTI, Aspiration, Falls, Skin Integrity, Depression Risk of Complications DVT: LMWH, OC Hose Bleeding: Monitor Lab Values, Nursing to Teach Precautions for anti-coagulation therapy., Wound, if applicable, to be assessed every shift., Stroke patients assessed for lethargy or change in status. Infection: Clinical Staff to Monitor for S/S of infection:, S/S of infection include fever, redness, warmth, etc. Urinary Tract Infection: Monitor for frequency, burning, discomfort, or in continence., Nursing will obtain urine sample for urinalysis and C&S when ordered. Aspiration: Clinical staff will monitor for coughing, drooling, congestion., Speech will evaluate swallowing and dsyphasia., Nursing will monitor patient swallowing during meals. Falls: Patient will be evaluated for Fall Precautions, Patient will be placed on Fall Precautions as indicated per protocol. Skin Breakdown: Nursing will assess skin daily using assessment tool., Nursing will place on Skin Breakdown Precautions as indicated. Pain: Clinical staff will assess patient's pain level per protocol., Medications will be given, if needed, and the pain level reassessed., Other methods: Massage, distraction, decrease stimulus, etc. used PRN. Plan of Care Patient requires physician specializing in physical medicine and rehab oversight to provide close medical supervision of rehab issues including: Pain Management, Sleep Problems, Bowel and Bladder, Medical and co-morbidity Management, DVT prophylaxis, Rehabilitation Leadership, Coordination of treatment team Patient needs Physical Therapy: For a minimum of 1 hour, At least 5 out of 7 days Patient needs Physical Therapy to improve:: Mobility, Mobility, Mobility, S trengthening, Transfers, Stretching, ROM, Endurance, Stairs, Gait, Balance Patient needs Occupational Therapy: For a minimum of 1 hour, At least 5 out of 7 days Patient needs Occupational Therapy to improve ADL's incl.: Eating, Grooming, Bathing, Dressing, Toileting, Toilet transfers, Community Reintegration, Higher functioning activities, Household tasks, Adaptive Equipment, Splinting, Other activities as determined Patient requires 24/7 Rehabilitation Nursing for: Pain Issues, Identifying and preventing risk factors, Monitoring and reporting current medical conditions, Assisting with ambulation, transfer, and all ADL's, Teaching patients about disease process and medications, Family teaching, Providing safe environment, Bowel and Bladder Issues, Skin integrity, Medication Management Patient needs Decorative Cutting Machine Tender/ Case Management for: Discharge Planning, Arranging Home Equipment or Services, Family Interventions Patient needs Dietary and Nutrition Services for: Adequate Nutrition, Nutritional Supplements, Nutritional Education Goals Patient will remain: free from falls, or injury at time of discharge. Patient will perform bed mobility at: MOD I level of assist. Patient will complete transfers from bed to chair at: MOD I level of assist. Patient will ambulate: with MOD I assist, - - 25 feet with a wheeled walker at standby assist Patient will complete upper body dressing at: MOD I level of assist. Patient will complete lower body dressing at: MOD I level of assist. Patient will complete toileting at: MOD I level of assist. Patient will perform bathing at: MOD I level of assist. Patient will complete grooming at: MOD I level of assist. Patient will complete home management skills at: MOD I level of assist. Patient will achieve: at MOD I assist, - - 2- steps Patient will have pain level of: of 3 or less Patient's skin will: remain intact, free from infection. Patient will receive: adequate nutrition. Discharge Planning Estimated Length of stay (days): 14 Anticipated D/C Destination: Home with Home Health Was Preadmission Assessment Accurate?: Yes
--- NOTE | 2020-04-30 09:49 | PN_ITS ---
Progress Note Afebrile VSS Maintaining appropriate oxygen saturation on RA Oral intake is poor After laxative she was able to have a bowel movement on 04/29/2020. Discussed with nursing - no problems that need addressed Reviewed the PT/OT/ST notes Medication list reviewed. Covid rapid antigen test was negative yesterday. All lab from today is personally reviewed. White blood cell count and platelets are within normal limits. Hemoglobin is mildly decreased at 11.4 with normochromic normocytic indices and a normal RDW. The hemoglobin is up from 10.6 on 04/26/20 to 11.4 today. Sodium is low at 129 today and the chloride is 94. The BUN is 12 and the creatinine is 0.67. LFTs are within normal limits. Phosphorus and magnesium are also normal. Calcium corrected for hypoalbuminemia is 9.5. TSH is normal at 2.94. Urine osmolality is 268 and the serum osmolality is 269. Fabiana states she slept well last night. She denies lightheadedness. She denies chest pain, shortness of breath. She is using ice to the pelvis which is helping somewhat with pain control. She has had 2 doses of oxycodone 5 mg on 04/29/2020 and 2 doses so far today. She denies nausea/vomiting/abdominal pain. The pain is controlled enough that she was able to do all her physical therapy today. Blood pressure satisfactory with decrease in the atenolol to 12.5 mg da emilee because of bradycardia. She has not had to have any hydralazine as needed. Alert, oriented x3, pleasant Lungs-clear to auscultation Heart regular rate and rhythm Abdomen-soft, nontender, nondistended No calf tenderness No rashes, no skin breakdown Impressions 1. Physical debility secondary to recent fall (unknown cause) resulting in acute fractures of the left inferior and superior pubic rami and intractable pain limiting her ability to walk. 2. Acute blood loss anemia likely secondary to bleeding into the pelvis related to pelvic fractures 3. Hypokalemia-resolved 4. Hyponatremia-more likely than not secondary to hydrochlorothiazide 25 mg daily. 5. Bradycardia 6. Bilateral carotid bruit/carotid stenosis? Continue therapy NS 100 cc/hr X 2 liters and recheck the BMP in the AM Check a urine urea, urine creatinine, urine osmolality and serum osmolality. After the above tests are resulted will decide whether or not to administer normal saline IV. Patient is on a regular diet.....I suspect the hyponatremia is due to the prolonged effects of the HCTZ The FEUrea is 44%. STROKE Vital Signs/Narrative: Vital Signs Temp Pulse Resp BP Pulse Ox 04/30/20 09:22 97.9 F 62 18 127/68 H 96 04/30/20 07:00 96 Inpatient E&M: [id number] Init Hosp L2
[2020-04-30 10:37] LABS: Osmolality, Serum 269 mOsm/KG (280-301)
[2020-04-30 14:41] LABS: Osmolality, Urine 268 mOsm/KG
[2020-04-30 14:46] LABS: Urea Nitrogen, Urine 450 mg/dL (NO RANGE EST.)
--- NOTE | 2020-04-30 17:45 | CHAPLAIN ---
Type of Pastoral Visit _x__ Initial Visit ___ Follow-up Visit ___ On-call Visit ___ General Patient Visit ___ Spiritual Assessment ___ Family Conference ___ Bereavement ___ Rapid Response ___ Code Blue ___ Other (describe below) Pastoral Care Referral From _x__ Patient ___ Family ___ Nurse ___ Physician ___ Concrete Crusher Loader Operator ___ Tune Up Mechanic ___ Other (describe below) Sacrament/Intervention _x__ Active listening ___ Anointing ___ Sikhism ___ Bereavement ___ Communion _x__ Teresa exploration ___ ___ Life review ___ Prayer ___ Reconciliation ___ Sacrament of Sick ___ Supportive presence ___ Wedding ___ Other (describe below) Pastoral Comments
[2020-04-30] MEDS: 0.9% Normal Saline 1,000 ML 100 ML IV (18:45)
[2020-04-30 20:12] VITALS: BP 144/55; PULSE 66; RESP 16; TEMP 36.6; O2SAT 97
[2020-04-30] MEDS: Pravastatin 20 MG Tablet PO (21:34)
--- NOTE | 2020-05-01 03:33 | NURSING ---
PT STRAIGHT CATHED FOR CLEAR, LIGHT YELLOW URINE USING RED RUBBER CATHETER. PT TOLERATES PROCEDURE WELL. STRAIGHT CATHED FOR URINE RETENTION PER BLADDER SCAN.
[2020-05-01] MEDS: Enoxaparin 40 MG/0.4 ML Syringe SC (04:17)
[2020-05-01] MEDS: Acetaminophen 500 MG Tablet 1000 MG PO ×3 (04:17→20:52)
[2020-05-01] MEDS: 0.9% Normal Saline 1,000 ML 100 ML IV (04:37)
[2020-05-01 05:32] LABS: Anion Gap 5 (5-15); BUN 10 mg/dL (7-18); BUN/Creat Ratio 16.6 RATIO (10-20); Calcium,Total 8.3 mg/dL (8.5-10.1); Chloride 98 mmol/L (98-107); EST Glomerular Filtration Rate 101 mL/min (>60); Est Glom Filt Rate - Afr Amer 122 mL/min (>60); Estimated Creatinine Clearance 31.94 ml/min; Glucose 91 mg/dL (74-106); Potassium 3.9 mmol/L (3.5-5.1); Sodium Level 132 mmol/L (136-145)
[2020-05-01] MEDS: Calcium Carb/Vitamin D 1 TABLET Tablet PO ×2 (08:10→16:47)
[2020-05-01] MEDS: Atenolol 25 MG Tablet 12.5 MG PO (08:11)
[2020-05-01] MEDS: Calcium Carbonate 500 MG Tablet PO ×2 (08:11→16:47)
[2020-05-01 09:32] VITALS: BP 168/78; PULSE 60; RESP 16; TEMP 36.8; O2SAT 98
[2020-05-01] MEDS: oxyCODONE 5 MG Tablet PO (14:19)
[2020-05-01 19:35] VITALS: BP 145/78; PULSE 66; RESP 17; TEMP 37.1; O2SAT 96
[2020-05-01] MEDS: Pravastatin 20 MG Tablet PO (20:51)
[2020-05-01 22:00] VITALS: PULSE 96; RESP 16; O2SAT 97
[2020-05-02] MEDS: Enoxaparin 40 MG/0.4 ML Syringe SC (06:38)
[2020-05-02] MEDS: Acetaminophen 500 MG Tablet 1000 MG PO ×3 (06:38→20:48)
[2020-05-02] MEDS: 0.9% Saline Lock 10 ML Syringe IV (06:39)
[2020-05-02] MEDS: Atenolol 25 MG Tablet 12.5 MG PO (07:58)
[2020-05-02] MEDS: Calcium Carb/Vitamin D 1 TABLET Tablet PO ×2 (07:58→17:12)
[2020-05-02] MEDS: Calcium Carbonate 500 MG Tablet PO ×2 (07:59→17:12)
[2020-05-02 10:00] VITALS: BP 153/70; PULSE 65; RESP 16; TEMP 36.9; O2SAT 98
[2020-05-02] MEDS: amLODIPine 2.5 MG Tablet PO (10:24)
[2020-05-02] MEDS: Pravastatin 20 MG Tablet PO (20:49)
[2020-05-02 22:00] VITALS: BP 150/70; PULSE 72; RESP 15; RESP 16; TEMP 36.8; O2SAT 96
[2020-05-03] MEDS: Acetaminophen 500 MG Tablet 1000 MG PO ×3 (05:35→20:04)
[2020-05-03] MEDS: Enoxaparin 40 MG/0.4 ML Syringe SC (05:35)
[2020-05-03] MEDS: Calcium Carb/Vitamin D 1 TABLET Tablet PO ×2 (08:30→18:17)
[2020-05-03] MEDS: Calcium Carbonate 500 MG Tablet PO ×2 (08:31→18:18)
[2020-05-03] MEDS: Atenolol 25 MG Tablet 12.5 MG PO (08:31)
[2020-05-03] MEDS: amLODIPine 2.5 MG Tablet PO (08:32)
[2020-05-03 08:45] VITALS: BP 141/71; PULSE 68; RESP 16; TEMP 36.4; O2SAT 95
[2020-05-03] MEDS: 0.9% Saline Lock 10 ML Syringe IV (18:21)
[2020-05-03 19:29] VITALS: BP 155/80; PULSE 73; RESP 18; TEMP 36.1; O2SAT 96
[2020-05-03] MEDS: Pravastatin 20 MG Tablet PO (20:04)
[2020-05-04] MEDS: Acetaminophen 500 MG Tablet 1000 MG PO ×3 (05:15→20:35)
[2020-05-04] MEDS: Enoxaparin 40 MG/0.4 ML Syringe SC (05:15)
[2020-05-04 07:13] LABS: Anion Gap 7 (5-15); BUN 9 mg/dL (7-18); BUN/Creat Ratio 14.1 RATIO (10-20); Calcium,Total 8.5 mg/dL (8.5-10.1); Chloride 97 mmol/L (98-107); Creatinine, Serum 0.64 mg/dL (0.55-1.02); EST Glomerular Filtration Rate 94 mL/min (>60); Est Glom Filt Rate - Afr Amer 113 mL/min (>60); Estimated Creatinine Clearance 31.94 ml/min; Glucose 86 mg/dL (74-106); Potassium 4.1 mmol/L (3.5-5.1); Sodium Level 130 mmol/L (136-145)
[2020-05-04] MEDS: Calcium Carbonate 500 MG Tablet PO ×2 (07:24→15:47)
[2020-05-04] MEDS: Calcium Carb/Vitamin D 1 TABLET Tablet PO ×2 (07:25→15:47)
[2020-05-04] MEDS: amLODIPine 2.5 MG Tablet PO (07:26)
[2020-05-04] MEDS: Atenolol 25 MG Tablet 12.5 MG PO (07:27)
[2020-05-04 07:40] VITALS: BP 145/68; PULSE 65; RESP 18; TEMP 37.1; O2SAT 94
--- NOTE | 2020-05-04 11:31 | NURSING ---
Partial assist for getting in and out of bed per nursing. Once she is up she is supervision touching assist with TTWB to LLE.
[2020-05-04 19:23] VITALS: BP 148/69; PULSE 62; RESP 18; TEMP 36.2; O2SAT 96
[2020-05-04] MEDS: Pravastatin 20 MG Tablet PO (20:35)
[2020-05-04] MEDS: Senna/Docusate Sodium 1 Tablet 2 TABLET PO (20:36)
[2020-05-05] MEDS: Enoxaparin 40 MG/0.4 ML Syringe SC (05:21)
[2020-05-05] MEDS: Acetaminophen 500 MG Tablet 1000 MG PO ×3 (05:21→20:38)
[2020-05-05] MEDS: Alendronate Sodium 70 MG Tablet PO (05:21)
[2020-05-05 05:22] VITALS: BP 162/73; PULSE 66
[2020-05-05] MEDS: hydrALAZINE 25 MG Tablet PO (05:22)
[2020-05-05] MEDS: 0.9% Saline Lock 10 ML Syringe IV (06:54)
[2020-05-05] MEDS: Calcium Carb/Vitamin D 1 TABLET Tablet PO ×2 (07:48→16:44)
[2020-05-05] MEDS: Calcium Carbonate 500 MG Tablet PO ×2 (07:49→16:44)
[2020-05-05 10:00] VITALS: BP 143/73; PULSE 68; RESP 16; TEMP 36.6; O2SAT 96
[2020-05-05] MEDS: Atenolol 25 MG Tablet 12.5 MG PO (11:01)
[2020-05-05] MEDS: amLODIPine 2.5 MG Tablet PO (11:01)
[2020-05-05 19:32] VITALS: BP 142/72; PULSE 65; RESP 18; TEMP 37.1; O2SAT 97
[2020-05-05] MEDS: Pravastatin 20 MG Tablet PO (20:37)
[2020-05-05 22:00] VITALS: RESP 16; O2SAT 98
[2020-05-06] MEDS: Acetaminophen 500 MG Tablet 1000 MG PO ×3 (05:20→21:27)
[2020-05-06] MEDS: Enoxaparin 40 MG/0.4 ML Syringe SC (05:20)
[2020-05-06] MEDS: 0.9% Saline Lock 10 ML Syringe IV (05:27)
[2020-05-06 05:47] LABS: Hematocrit 38.5 % (37-47); Hemoglobin 12.6 g/dL (12.0-15.0)
[2020-05-06 06:07] LABS: Anion Gap 6 (5-15); BUN 10 mg/dL (7-18); BUN/Creat Ratio 12.7 RATIO (10-20); Calcium,Total 9.1 mg/dL (8.5-10.1); Chloride 93 mmol/L (98-107); Creatinine, Serum 0.78 mg/dL (0.55-1.02); EST Glomerular Filtration Rate 74 mL/min (>60); Est Glom Filt Rate - Afr Amer 89 mL/min (>60); Estimated Creatinine Clearance 31.94 ml/min; Glucose 93 mg/dL (74-106); Potassium 4.1 mmol/L (3.5-5.1); Sodium Level 127 mmol/L (136-145)
[2020-05-06 08:46] VITALS: BP 144/72; PULSE 75; RESP 16; TEMP 36.9; O2SAT 97
[2020-05-06] MEDS: Atenolol 25 MG Tablet 12.5 MG PO (09:19)
[2020-05-06] MEDS: Calcium Carbonate 500 MG Tablet PO ×2 (09:20→16:25)
[2020-05-06] MEDS: amLODIPine 2.5 MG Tablet PO (09:20)
[2020-05-06] MEDS: Calcium Carb/Vitamin D 1 TABLET Tablet PO ×2 (09:20→16:24)
--- NOTE | 2020-05-06 10:29 | CASEMGMT ---
Addendum entered by Samantha Wall 05/06/20 14:53: Pt requesting 3-in-[address]erred [address] [facility] Original Note: Social Work IDT met with patient and via conference call for Team meeting. Discussed patient's progress in therapy. Pt is SBA-CGA for tx, ambulating 130ft with FWW while maintaining TTWBS, completed steps. Pt is SBA-supervised for all ADLs with AE. Pt's son installed two handrails to entry steps at home. DIL can assist pt while is working. Requesting DC 05/07. IDT agreeable. Pt requesting FWW - referral made to [facility] and [facility] - referral made for PT/OT. to transport. Plan: DC home with and family support 05/07 with [facility] PT/OT, [facility] - FWW Samantha Wall, REILLY DUGGANW
--- NOTE | 2020-05-06 12:59 | PCM.PN.BLA ---
Progress Note late entry for 05/03: Afebrile VSS Maintaining appropriate oxygen saturation on RA Oral intake is good I am not sure the I&O's are correct. the Inpu>>output? But the weight has not really changed?[] Discussed with nursing - no problems that need addressed Reviewed the PT/OT notes Medication list reviewed. The HCTZ was discontinued at admission. Fabiana denies lightheadedness, SOB, cough, CP, palpitations, confusion, muscle weakness Alert, oriented x3, pleasant, no apparent distress Mucous membranes are moist Lungs-clear to auscultation with good air exchange Heart-regular rate and rhythm, no gallop Abdomen-soft, nontender, no guarding with palpation, normal bowel sounds No peripheral edema No calf tenderness No rashes and no skin breakdown Impressions 1. physical debility secondary to a recent fall with fractures of the left inferior and superior pubic rami. 2. Fall- the reason she fell is unclear......she denied lightheadedness and she says she did not trip. She has no hx of a cardiac dysrhythmia. dehydration? She was taking HCTZ? 3. Hyponatremia - suspect due to diuretic? 4. HTN - controlled adequately Continue therapy. Recheck the sodium prior to DC COntinue to hold HCTZ. Inpatient E&M: 89993 Subs Hosp L2
--- NOTE | 2020-05-06 13:00 | PCM.DC ---
- Discharge Diagnoses Current Active Problems: Current Active and Chronic Problems (Last Reviewed 04/29/20 @ 12:[address] Idalia Thompson, DO) Fall (Acute) Pubic ramus fracture (Acute) L inferior and superior rami fractures Acute blood loss anemia (Acute) likely due to bleeding in the pelvis due to acute inferior and superior pubic rami fractures Hyponatremia (Acute) - recurrent You will use the following diet at home:: Regular Your food should be the consistency of: Regular Your liquids should be the consistency of: Regular/Thin Discharge Activity: Use Walker Weight Bearing Status: Weight bearing as tolerated Keep extremity elevated above heart level: Left Leg Call your doctor if you observe: Fever of 101 or Higher, Inability to urinate, Inability to have a bowel movement, Shortness of breath, Dizziness, Fainting spells, Swelling in the ankles, Chest pain, Increased palpitations (irregular heartbeat), Uncontrolled pain, - - confusion Instructions: Hyponatremia Additional Instructions: 1. Your sodium is mildly low in your blood. I initially thought the sodium was low because of the diuretic you were taking. We stopped the diuretic and gave you an IV and it came up to 132 (normal is 135-145). On Tuesday prior to DC the sodium is back down to 127 and so we did some additional testing. The adrenal gland function is normal. The most likely cause of the low sodium is you have a little too much water in your system and it dilutes out the sodium. I will let Frederick LICONA know about this and he will follow up with additional lab work if needed. I want you to restrict your water intake to no more than 2 liters daily. Do not take diuretics.....they will likely make the situation worse and your BP is good off the Thiazide. We added Norvasc to control the BP since we discontinued the HCTZ (hydrochlorothiazide). 2. You did GREAT in therapy!! It takes at least 6 weeks for a bone to heal. You will follow up with orthopedics and they will let you know when it is safe to start with full weight bearing. If you have not had a bone density test in the past 1-2 years you may want to discuss this with Frederick Mendez. Take care of yourself Fabiana and Happy New Year. If you have any questions after you leave rehab please do not hesitate to call me at [phone] (cell) or call the rehab unit at [phone]. Allergies/Adverse Reactions: Allergies clarithromycin [From Biaxin] Allergy (Mild, Verified 08/02/13 19:22) Hives Medications to take at Discharge Atenolol [Tenormin (beta geovanny)] 25 mg PO DAILY 04/25/20 Pravastatin [Pravachol] 20 mg PO DAILY 04/25/20 Alendronate Sodium [Fosamax] 70 mg QWEEK 04/26/20 Acetaminophen [Tylenol Tablet] 650 mg PO Q6H PRN PRN tab 04/28/20 Oxycodone [Oxyir] 5 mg PO Q4H PRN PRN 1 Days #1 tab 04/28/20 Amlodipine [Norvasc] 5 mg PO DAILY #30 tab 05/06/20 Calcium Carb/Vitamin D [Os-Yordan 500MG + D] 1 tab PO BIDCM tab 05/06/20 Melatonin 3 mg PO QHS PRN PRN #30 tab 05/06/20 Oxycodone [Oxyir] 5 mg PO Q4H PRN PRN 7 Days #20 tab 05/06/20 The following prescriptions were given: Melatonin 3 mg PO QHS PRN PRN #30 tab PRN Reason: SLEEP Transmission Status: Received by [facility] Amlodipine [Norvasc] 5 mg PO DAILY #30 tab Transmission Status: Received by [facility] Oxycodone [Oxyir] 5 mg PO Q4H PRN PRN 7 Days #20 tab PRN Reason: Pain Score 4-5 Transmission Status: Received by [facility] Primary Care Physician: Naren Mendez, PA [Primary Care Provider] - Please follow up with your Primary Care Physician in: 7-10 days Test Results: Test results from this visit will be discussed in further detail at your follow-up appointment, if applicable. Please Follow Up With: [facility] orthopedics - Dr. Corrales or Dr. Perkins When: 2-4 weeks for follow up on pelvic fracture Proposed Discharge Date: 05/07/20
--- NOTE | 2020-05-06 13:03 | DS.PCM_ITS ---
Discharge Date and Diagnosis - Problem List Patient Problems: Active and Suspected Problems (Last Reviewed 04/29/20 @ 12:[address] Idalia Thompson DO) Fall (Acute) Pubic ramus fracture (Acute) L inferior and superior rami fractures Acute blood loss anemia (Acute) likely due to bleeding in the pelvis due to acute inferior and superior pubic rami fractures Hyponatremia (Acute) Date of Admission: 04/25/20 Date of Discharge: 05/07/20 - Primary Discharge Diagnosis Acute Problems: Active Problems (Last Reviewed 04/29/20 @ 12:[address] Idalia Thompson DO) Fall (Acute) - no syncope, did not trip. Etiology of the fall is unclear physical debility secondary to pelvic fractures due to a fall. Pubic ramus fracture (Acute) L inferior and superior rami fractures Acute blood loss anemia (Acute) - resolved likely due to bleeding in the pelvis due to acute inferior and superior pubic rami fractures Hyponatremia (Acute) - more likely than not due to SIADH or reset osmostat. 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 Idalia Thompson DO) Hypertension (Chronic) Hyperlipidemia (Chronic) Osteoporosis (Chronic) Vitamin D toxicity (Chronic) supplementation too high at 50,000 units weekly BL carotid bruits Hospital Course and Treatment Imaging Results: RAD/HIP, UNI W/ Pelvis 2-3 Views IMPRESSION: Suspected fractures of the left superior and inferior pubic rami, age indeterminate. Electronically Signed: Jada Rider MD at 22:57 EST Tel , Service support , Laboratory Last Values WBC 5.6 K/mm3 (4.4-11.0) 04/30/20 05:12 RBC 3.91 M/mm3 (4.2-5.4) L 04/30/20 05:12 Hgb 12.6 g/dL (12.0-15.0) 05/06/20 05:35 Hct 38.5 % (37-47) 05/06/20 05:35 MCV 87.0 fL (81-99) 04/30/20 05:12 MCH 29.2 pg (27.0-32.0) 04/30/20 05:12 MCHC 33.5 g/dL (32-36) 04/30/20 05:12 RDW Std Deviation 41.9 fl (35.1-43.9) 04/30/20 05:12 RDW Coeff of Jack 13.2 % (11.6-14.6) 04/30/20 05:12 Plt Count 226 K/mm3 (150-450) 04/30/20 05:12 MPV 9.4 fl (6.2-12.0) 04/30/20 05:12 Sodium 131 mmol/L (136-145) L 05/07/20 05:50 Potassium 3.9 mmol/L (3.5-5.1) 05/07/20 05:50 Chloride 97 mmol/L (98-107) L 05/07/20 05:50 Carbon Dioxide 26.0 mmol/L (21.0-32.0) 05/07/20 05:50 Anion Gap 8 (5-15) 05/07/20 05:50 BUN 12 mg/dL (7-18) 05/07/20 05:50 Creatinine 0.68 mg/dL (0.55-1.02) 05/07/20 05:50 Estim Creat Clear Calc 31.94 ml/min 05/07/20 05:50 Est GFR (MDRD) Af Amer 106 mL/min (>60) 05/07/20 05:50 Est GFR (MDRD) Non-Af 88 mL/min (>60) 05/07/20 05:50 BUN/Creatinine Ratio 17.7 RATIO (10-20) 05/07/20 05:50 Glucose 108 mg/dL (74-106) H 05/07/20 05:50 Serum Osmolality 269 mOsm/KG (280-301) L 04/30/20 05:12 Calcium 8.6 mg/dL (8.5-10.1) 05/07/20 05:50 Phosphorus 3.8 mg/dL (2.5-4.9) 04/30/20 05:12 Magnesium 2.2 mg/dL (1.6-2.6) 04/30/20 05:12 Total Bilirubin 0.50 mg/dL (0.20-1.00) 04/30/20 05:12 AST 19 U/L (15-37) 04/30/20 05:12 ALT 16 U/L (13-56) 04/30/20 05:12 Alkaline Phosphatase 43 U/L (45-117) L 04/30/20 05:12 Total Protein 6.1 g/dL (6.4-8.2) L 04/30/20 05:12 Albumin 2.9 g/dL (3.2-5.0) L 04/30/20 05:12 Globulin 3.2 g/dL (2.2-4.2) 04/30/20 05:12 Albumin/Globulin Ratio 0.9 RATIO (0.9-2.4) 04/30/20 05:12 TSH 2.94 uIU/mL (0.358-3.74) 04/30/20 05:12 Free T4 1.51 ng/dL (0.76-1.46) H 05/06/20 05:35 Cortisol 42.20 ug/dL (3.44-22.45) H 05/06/20 20:05 Urine Osmolality 268 mOsm/KG (50-) 04/30/20 14:25 Ur Random Sodium 42 mmol/L (Not Establ.) 05/06/20 18:27 Urine Creatinine 40.50 mg/dL (NO RANGE EST.) 05/06/20 18:27 Urine Urea Nitrogen 450 mg/dL (NO RANGE EST.) 04/30/20 14:25 Microbiology 04/29/20 10:30 Mucosa - Nose SARS-CoV-2 Antigen (Rapid) - Final Negative Operations: None Summary of Care Provided: Fabiana Varma is a 85 year old F with a past medical history of hypertension, osteoporosis, colon polyps and hyperlipidemia who presented to the emergency department at [facility] on 04/25/2020 complaining of severe left hip pain after she fell on her left hip 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 She denied syncope and also denied tripping. She was unable to ambulate. X-ray in the emergency room showed suspected fractures of the left superior and inferior pubic rami. She was admitted to the hospital for pain control and PT/OT. She is currently taking a bisphosphonate, alendronate 70 mg weekly. She is also taking a weekly vitamin D supplement, 50,000 units. Vitamin D level at admission was mildly toxic at 103. She was seen by physical therapy on 04/26/2020 and was able to ambulate only 3 feet with a lot of voice cues and assistance to progress the walker and maintain toe-touch weightbearing. Admission to acute inpatient rehab was recommended. She lives in a one-story house with her and prior to the fall was independent with all ADLs. She was ambulating without an assistive device and driving. She was transferred to the inpatient rehab unit at [facility] on 04/28/2020 for greater than 3 hours of therapy daily to restore her at or near her prior level of function. Lab at admission to the rehab unit showed a sodium of 129 with a chloride of 94. BUN was 12 and the creatinine was 0.67. The urine was less than max imally dilute and the serum osmolality was low. She was clinically dry on PE and she had been taking HCTZ 25 mg daily as an OP. She was hydrated with NS and the sodium came up to 132. TSH was normal. HCTZ was discontinued. Prior to DC the sodium was rechecked and it was 127. She was well hydrated and had been off the HCTZ since 04/28/20. A Cortrosyn stimulation test was ordered and she has normal adrenal function. The TSH is 2.94 and the free T4 is mildly increased at 1.51. Urine sodium was 42 on 05/06/2020. The most likely diagnosis for the hyponatremia is SIADH or reset osmostat. She was instructed to limit her water intake to 2 liters per day. Fabiana did very well in therapy and her pain has been controlled with Tylenol 1 g p.o. every 8 hours since 05/01/2020. 1 day prior to discharge she was ambulating 50 to 130 feet with a wheeled walker at [facility] on the left lower extremity at SBA/CGA. She was able to a send/descend 2 steps with 2 rails at minimal assistance. She was able to transfer on and off an elevated commode independently. She is independent with clothing management and hygiene. Occupational Therapy recommended a shower chair and installing grab bars in the shower area for home-going. On the date of discharge the blood pressure was 137/76 with a heart rate of 68. She was 97% saturated on room air and she had been afebrile for the duration of her stay in rehab. Sodium on the date of discharge was 131 with a chloride of 97 and a BUN/creatinine of 12/0.68. She is going to follow-up with MONAE Erickson for routine medical care. She will follow up with [facility] orthopedics to monitor healing of the pelvic fractures. Alert, oriented x3, pleasant, no apparent distress Mucous membranes are moist, no mucosal lesions Bilateral carotid bruits, no JVD Lungs-clear to auscultation with excellent air exchange Heart-regular rate and rhythm, no murmurs, no gallop, no rub No peripheral edema No calf tenderness No focal neurologic deficits This note was generated with [employer] dictation software. It may contain incorrect words, spelling, and punctuation that were not noted in checking the note before signing. Patient Problems: Active and Suspected Problems (Last Reviewed 04/29/20 @ 12:[address] Idalia Thompson DO) Fall (Acute) Pubic ramus fracture (Acute) L inferior and superior rami fractures Acute blood loss anemia (Acute) likely due to bleeding in the pelvis due to acute inferior and superior pubic rami fractures Hyponatremia (Acute) - Physical Exam Vitals/I&O's: Vital Signs Temp Pulse Resp BP Pulse Ox 98.4 F 75 16 144/72 H 97 05/06/20 08:46 05/06/20 08:46 05/06/20 08:46 05/06/20 08:46 05/06/20 08:46 Oxygen Delivery Method Room Air Weight: 155 lb 6.814 oz Body Mass Index (BMI) 29.1 Intake and Output for Last 24 Hours 05/04/20 05/05/20 05/06/20 23:59 23:59 23:59 Intake Total 1620 / 1620 3500 / 3500 720 / 720 Output Total 900 / 900 650 / 650 350 / 350 Balance 720 / 720 2850 / 2850 370 / 370 Laboratory Results 05/06/20 05:35: Sodium 127 L, Potassium 4.1, Chloride 93 L, Carbon Dioxide 28.0, Anion Gap 6, BUN 10, Creatinine 0.78, Estim Creat Clear Calc 31.94, Est GFR (MDRD) Af Amer 89, Est GFR (MDRD) Non-Af 74, BUN/Creatinine Ratio 12.7, Glucose 93, Calcium 9.1 05/06/20 05:35: Hgb 12.6, Hct 38.5 Current Medications Acetaminophen (Acetaminophen 500 Mg Tablet) 1,000 mg PO Q8 [facility] Last Admin: 05/06/20 05:20 Dose: 1,000 mg Documented by: Alendronate Sodium (Alendronate Sodium 70 Mg Tablet) 70 mg PO QWEEK [facility] Last Admin: 05/05/20 05:21 Dose: 70 mg Documented by: Amlodipine Besylate (Amlodipine 2.5 Mg Tablet) 2.5 mg PO DAILY [facility] Last Admin: 05/06/20 09:20 Dose: 2.5 mg Documented by: Atenolol (Atenolol 25 Mg Tablet) 12.5 mg PO DAILY [facility] Last Admin: 05/06/20 09:19 Dose: 12.5 mg Documented by: Bisacodyl (Bisacodyl 10 Mg Suppository) 10 mg RECTAL .PRN X 1 PRN PRN Reason: Constipation Calcium Carbonate (Calcium Carbonate 500 Mg Tablet) 500 mg PO BIDCM [facility] Last Admin: 05/06/20 09:20 Dose: 500 mg Documented by: Calcium/Vitamin D (Calcium Carb/Vitamin D 1 Tablet Tablet) 1 tablet PO BIDCM [facility] Last Admin: 05/06/20 09:20 Dose: 1 tablet Documented by: Cholecalciferol (Cholecalciferol (Vit D3) 1,000 Unit (25mcg)) 1,000 unit PO BID [facility] Last Admin: 05/06/20 09:20 Dose: 1,000 unit Documented by: Cyclobenzaprine HCl (Cyclobenzaprine Hcl 5 Mg Tablet) 5 mg PO TID PRN PRN PRN Reason: MUSCLE SPASM Enoxaparin Sodium (Enoxaparin 40 Mg/0.4 Ml Syringe) 40 mg SC DAILY@0600 [facility] Stop: 05/12/20 06:01 Last Admin: 05/06/20 05:20 Dose: 40 mg Documented by: Hydralazine HCl (Hydralazine 25 Mg Tablet) 25 mg PO Q6H PRN PRN PRN Reason: SYS>160 DIAST>90 Last Admin: 05/05/20 05:22 Dose: 25 mg Documented by: Magnesium Hydroxide (Magnesium Hydroxide 30 Ml Udc) 30 ml PO .PRN X 1 PRN PRN Reason: Constipation Last Admin: 04/28/20 18:29 Dose: 30 ml Documented by: Melatonin (Melatonin 3 Mg Tablet) 3 mg PO QHS PRN PRN PRN Reason: SLEEP Oxycodone HCl (Oxycodone 5 Mg Tablet) 5 mg PO Q4H PRN PRN PRN Reason: Pain Score 4-5 Last Admin: 05/01/20 14:19 Dose: 5 mg Documented by: Pravastatin Sodium (Pravastatin 20 Mg Tablet) 20 mg PO QHS [facility] Last Admin: 05/05/20 20:37 Dose: 20 mg Documented by: Senna/Docusate Sodium (Senna/Docusate Sodium 1 Tablet) 2 tablet PO BID [facility] Last Admin: 05/06/20 09:19 Dose: Not Given Documented by: Sodium Chloride (0.9% Saline Lock 10 Ml Syringe) 10 - 40 ml IV PRN PRN PRN Reason: SALINE FLUSH Last Admin: 05/06/20 05:27 Dose: 10 ml Documented by: Home Medications: Medications to take at Discharge Atenolol [Tenormin (beta geovanny)] 25 mg PO DAILY 04/25/20 Pravastatin [Pravachol] 20 mg PO DAILY 04/25/20 Alendronate Sodium [Fosamax] 70 mg QWEEK 04/26/20 Acetaminophen [Tylenol Tablet] 650 mg PO Q6H PRN PRN tab 04/28/20 Oxycodone [Oxyir] 5 mg PO Q4H PRN PRN 1 Days #1 tab 04/28/20 Amlodipine [Norvasc] 5 mg PO DAILY #30 tab 05/06/20 Calcium Carb/Vitamin D [Os-Yordan 500MG + D] 1 tab PO BIDCM tab 05/06/20 Melatonin 3 mg PO QHS PRN PRN #30 tab 05/06/20 Oxycodone [Oxyir] 5 mg PO Q4H PRN PRN 7 Days #20 tab 05/06/20 Following Prescriptions Were Given to Patient: Melatonin 3 mg PO QHS PRN PRN #30 tab PRN Reason: SLEEP Transmission Status: Received by [facility] Amlodipine [Norvasc] 5 mg PO DAILY #30 tab Transmission Status: Received by [facility] Oxycodone [Oxyir] 5 mg PO Q4H PRN PRN 7 Days #20 tab PRN Reason: Pain Score 4-5 Transmission Status: Received by [facility] Primary Care Physician: Naren Mendez PA [Primary Care Provider] - Patient Instructions: Hyponatremia Disposition: Home with Home Health Minutes spent on discharge:: 40 Medical Necessity - Tobacco Use Smoking Status: Former smoker Tobacco Use: Non-smoker Meaningful Use Info Meaningful Use Diagnoses (Choose all that apply): None applicable Inpatient E&M: 57561 Disch Hosp
--- NOTE | 2020-05-06 17:17 | PCM.PN.BLA ---
Progress Note Fabiana was seen on team rounds today. Her Magdiel participated by phone. Magdiel can pick her up tomorrow and their dtr will be staying with Fabiana while Magdiel works Tuesday and Tuesday. The handrails were done by her son.......BL handrails to get into the house. Therapists are in agreement with [facility] tomorrow and she will be made MOD I today. Afebrile VSS Maintaining appropriate oxygen saturation on RA Oral intake is good. Fluid balance for the past few days has been very +....not sure this s correct. Discussed with nursing - no problems that need addressed Reviewed the PT/OT notes Medication list reviewed. Denies chest pain, orthopnea, dyspnea on exertion, cough, ankle edema, nausea/vomiting/abdominal pain, dysuria. Alert and oriented x3, sitting in the recliner no apparent distress Mucous membranes are moist, no mucosal lesions Lungs-good air exchange and clear to auscultation throughout, no conversational dyspnea, not tachypneic Heart-regular rate and rhythm, no ectopy, no gallop Abdomen-soft, nontender, nondistended, bowel sounds present No peripheral edema, no calf tenderness No rashes and no skin breakdown No focal neurologic deficits Impressions 1. Physical debility secondary to recent fall resulting in fractures of the left inferior and superior pubic rami 2. Hyponatremia-thought to be secondary to dehydration related to chronic hydrochlorothiazide 25 mg daily. This was discontinued at admission. TSH was normal. 3. Hypertension-systolic is mildly increased at 144 today. Will increase the amlodipine to 5 mg daily from 2.5 mg daily. 4. Etiology of why she fell is still unclear Check a BMP and an H&H now Plan for discharge in the a.m. The hemoglobin is 12.6, up from 11.4 on 04/30/2020. Sodium is once again low at 127 with a chloride of 93? Potassium is normal at 4.1. The BUN is 10 with a creatinine of 0.78 and the BUN/creatinine ratio is 12.7. Cortrosyn stim test ordered. ACTH level ordered (to be drawn prior to the administration of the Cortrosyn. Check a T4. TSH was normal. Check a urine sodium. Recheck a BMP in the AM. Depending on the results of tyhe Cortrosyn stim peewee may need to follow up with Dr. Barraza as an OP. Inpatient E&M: 19063 Subs Hosp L2
[2020-05-06 17:45] LABS: T4 Free Direct 1.51 ng/dL (0.76-1.46)
[2020-05-06 18:47] LABS: Urine Sodium 42 mmol/L (Not Establ.)
[2020-05-06] MEDS: Cosyntropin 0.25 MG in 0.9% Normal Saline (Pres. free 1 ML 30 MG IV (19:02)
[2020-05-06 19:06] VITALS: BP 137/76; PULSE 68; RESP 18; TEMP 36.6; O2SAT 97
[2020-05-06] MEDS: Pravastatin 20 MG Tablet PO (21:27)
[2020-05-06 22:00] VITALS: PULSE 68; RESP 17; O2SAT 97
[2020-05-07] MEDS: Acetaminophen 500 MG Tablet 1000 MG PO ×2 (05:36→13:32)
[2020-05-07] MEDS: Enoxaparin 40 MG/0.4 ML Syringe SC (05:37)
[2020-05-07] MEDS: 0.9% Saline Lock 10 ML Syringe IV (05:39)
[2020-05-07 06:32] LABS: Anion Gap 8 (5-15); BUN 12 mg/dL (7-18); BUN/Creat Ratio 17.7 RATIO (10-20); Calcium,Total 8.6 mg/dL (8.5-10.1); Chloride 97 mmol/L (98-107); Creatinine, Serum 0.68 mg/dL (0.55-1.02); EST Glomerular Filtration Rate 88 mL/min (>60); Est Glom Filt Rate - Afr Amer 106 mL/min (>60); Estimated Creatinine Clearance 31.94 ml/min; Glucose 108 mg/dL (74-106); Potassium 3.9 mmol/L (3.5-5.1); Sodium Level 131 mmol/L (136-145)
[2020-05-07] MEDS: Calcium Carb/Vitamin D 1 TABLET Tablet PO (08:19)
[2020-05-07] MEDS: Calcium Carbonate 500 MG Tablet PO (08:20)
[2020-05-07] MEDS: amLODIPine 2.5 MG Tablet PO (08:20)
[2020-05-07] MEDS: Atenolol 25 MG Tablet 12.5 MG PO (08:20)
[2020-05-07 08:37] VITALS: BP 138/74; PULSE 88; RESP 16; TEMP 37; O2SAT 96
[2020-05-07 09:29] VITALS: BP 138/74; PULSE 88; RESP 16; TEMP 37; O2SAT 96
--- NOTE | 2020-05-07 13:45 | NURSING ---
discharged home with spouse via car transport.
[2020-05-09 08:02] LABS: Adrenocorticotropic Hormone 15.7 pg/mL (7.2-63.3)
== END 2020-05-07 13:40 | disposition home health service (06) | DRG 560 ==
PROVIDERS: Admitting Provider Internal Medicine; PCP Physician Assistant; Visit Provider Internal Medicine
DX: S32.512D Fracture of superior rim of left pubis, subsequent encounter for fracture with routine healing (principal); E22.2 Syndrome of inappropriate secretion of antidiuretic hormone; D62 Acute posthemorrhagic anemia; W19.XXXD Unspecified fall, subsequent encounter; S32.592D Other specified fracture of left pubis, subsequent encounter for fracture with routine healing; I10 Essential (primary) hypertension; E78.5 Hyperlipidemia, unspecified; M81.0 Age-related osteoporosis without current pathological fracture; Z87.891 Personal history of nicotine dependence
CPT/HCPCS: 36415; 80048; 80053; 82024; 82533; 82570; 83735; 83930; 83935; 84100; 84300; 84439; 84443; 84540; 85014; 85018; 85027; 87426; 97110; 97116; 97162; 97166; 97530; 97535; 97802; 99251; J7030; A4216; G0463; J0834; J3490

== ENCOUNTER 2021-11-19 14:07 | Emergency (ER) | payer MEDICARE, OTHER, SELFPAY ==
[2021-11-19 14:08] VITALS: BP 171/77; PULSE 81; RESP 16; TEMP 36.6; O2SAT 95; BMI 27.3
--- NOTE | 2021-11-19 14:15 | CT_ITS ---
STUDY: CT FACIAL BONES WITHOUT CONTRAST REASON FOR EXAM: Female, 86 years old. Facial injury RADIATION DOSAGE (If Supplied By Facility): CTDIvol = ( 29.38 ) mGy, DLP = ( 481.34 ) mGycm TECHNIQUE: The patient was scanned in a multi detector CT scanner. Sagittal and coronal images were reconstructed. Individualized dose optimization techniques were used for this CT. COMPARISON: None. FINDINGS: Normal soft tissue structures. Normal orbital kelley and orbital contents. Nondisplaced nasal fracture. Normal facial bones. There is no demonstrated fracture. Normal visualized paranasal sinuses. CT/Sinus/Facial Bone IMPRESSION: Nondisplaced nasal fracture. Electronically Signed: Brendan Hemphill MD at 15:01 EDT ,
--- NOTE | 2021-11-19 14:15 | CT_ITS ---
STUDY: CT CERVICAL SPINE WITHOUT CONTRAST REASON FOR EXAM: Female, 86 years old. Injury due to a fall. RADIATION DOSAGE (If Supplied By Facility): CTDIvol = ( 18.21 ) mGy, DLP = ( 353.61 ) mGycm TECHNIQUE: High resolution transaxial imaging was performed without contrast material. Sagittal and coronal images were reconstructed. Individualized dose optimization techniques were used for this CT. COMPARISON: None FINDINGS: Normal craniovertebral junction. There are degenerative changes of the anterior atlantoaxial articulation. Normal odontoid process. Normal cervical lordosis. Normal vertebral bodies and posterior osseous elements. C2-3: Normal endplates. Normal disc height and morphology. Normal central canal and intervertebral neuroforamina. C3-4: Facet joint osteoarthritis. Uncovertebral arthrosis. No significant stenosis seen. C4-5: Moderate degree of disc space narrowing. Facet joint osteoarthritis and hypertrophy worse on the left side with uncovertebral arthrosis. Moderate to marked degree of left neural foraminal stenosis. C5-6: Marked degree of disc space narrowing. Spondylosis. Facet joint osteoarthritis. Uncovertebral arthrosis. Moderate to marked degree of right neural foraminal stenosis. C6-7: Moderate degree of disc space narrowing. Facet joint osteoarthritis and hypertrophy worse on the left side. Mild to moderate degree of left neural foraminal stenosis. C7-T1: Normal endplates. Normal disc height and morphology. Normal central canal and intervertebral neuroforamina. Normal visualized soft tissue structures. CT/Spine Cervical without Contras IMPRESSION: Multilevel degenerative changes, as described above. Electronically Signed: Brendan Hemphill MD at 15:03 EDT ,
--- NOTE | 2021-11-19 14:15 | CT_ITS ---
STUDY: CT BRAIN WITHOUT CONTRAST REASON FOR EXAM: Female, 86 years old. Head injury RADIATION DOSAGE (If Supplied By Facility): CTDIvol = ( 44.99 ) mGy, DLP = ( 779.24 ) mGycm TECHNIQUE: Transaxial CT imaging of the brain was performed without administration of intravenous contrast material. Individualized dose optimization techniques were used for this CT. COMPARISON: No relevant priors. FINDINGS: Normal soft tissue structures. There is hyperostosis frontalis internus. Normal size ventricles and extra-axial spaces for the patient''s age. Normal white matter tracts of the cerebral hemispheres. Normal basal ganglia and thalami. Normal brainstem. Normal cerebellum. There is no intracranial hemorrhage. There are no findings of an acute ischemic infarction. Atherosclerotic plaque formation of the vertebral arteries and cavernous portions of the internal carotid arteries bilaterally. Normal visualized paranasal sinuses. CT/Brain/Head without Contrast IMPRESSION: Normal unenhanced CT scan of the brain. Electronically Signed: Brendan Hemphill MD at 14:54 EDT ,
--- NOTE | 2021-11-19 14:17 | RAD_ITS ---
STUDY: X-RAY - LEFT SHOULDER REASON FOR EXAM: Female, 86 years old. Injury following a fall. TECHNIQUE: 2 view(s) of the shoulder. COMPARISON: None. FINDINGS: There is moderate degenerative arthrosis of the glenohumeral articulation. There is degenerative arthrosis of the acromioclavicular joint without inferior osseous spur formation. Normal acromion. Comminuted impacted fracture of the surgical neck of the humerus with extension into the greater tuberosity. Mild posterior displacement of the humeral head. The soft tissue structures are unremarkable. Normal visualized pulmonary apex. RAD/Shoulder min 2 Views IMPRESSION: Comminuted impacted fracture of the surgical neck of the humerus with extension into the greater tuberosity. Mild posterior displacement of the humeral head. Electronically Signed: Brendan Hemphill MD at 14:41 EDT ,
--- NOTE | 2021-11-19 14:17 | EDS_ITS ---
HPI <MONAE Posadas - Last Filed: 11/19/21 15:55> HPI - Fall History of Present Illness Chief Complaint: Fall Narrative Narrative: 86-year-old female was at the [facility] walking towards the pool when she tripped on uneven concrete and hit her face on the ground. No LOC. When staff evaluated they called EMS to bring her in. She has some facial abrasions but denies headache, visual changes, nausea or vomiting. Her main complaint is left shoulder pain. She denies pain in her chest, back, abdomen, or lower extremities. She is not on aspirin or blood thinners. PFS <MONAE Posadas - Last Filed: 11/19/21 15:55> REPLACED BY [facility] Medical History (Updated 11/19/21 @ 15:[address] Kiana Jackson DO) Broken wrist HTN (hypertension) Pelvis fracture Home Medications atenolol 25 mg tablet 25 mg PO DAILY heart 04/25/20 [History Last Taken 04/25/20] pravastatin 40 mg tablet 20 mg PO DAILY hyperlipidemia 04/25/20 [History Last Taken 04/24/20] alendronate 70 mg tablet 70 mg QWEEK bone health 04/26/20 [History Last Taken 04/28/20 10:33] acetaminophen 325 mg tablet 650 mg PO Q6H PRN PRN Pain Score 1-10/Temp > 100.7 F 04/28/20 [Rx Last Taken Unknown] amlodipine 5 mg tablet 5 mg PO DAILY #30 tabs 05/06/20 [Rx Last Taken Unknown] calcium carbonate 500 mg-vitamin D3 5 mcg (200 unit) tablet 1 tab PO BIDCM 05/06/20 [Rx Last Taken Unknown] melatonin 3 mg tablet 3 mg PO QHS PRN PRN SLEEP #30 tabs 05/06/20 [Rx Last Taken Unknown] cephalexin 500 mg capsule 500 mg PO Q6 #28 CAPSULES 11/19/21 [Rx Last Taken Unknown] hydrocodone-acetaminophen 5-325mg 5mg-325mg 1 tab PO Q4H PRN PRN Pain 3 days #20 TABLETS 11/19/21 [Rx Last Taken Unknown] Allergy/AdvReac Type Severity Reaction Status Date / Time clarithromycin [From Biaxin] Allergy Mild Hives Verified 08/02/13 19:22 Social History Smoking Status: Former smoker ROS <MONAE Posadas - Last Filed: 11/19/21 15:55> ROS ED ROS Narrative Constitutional: Negative for fever, chills, malaise. Eyes: Negative for visual change. ENT: Negative for sore throat, ear pain, rhinorrhea. CVS: Negative for palpitations, chest pain, syncope. Respiratory: Negative for shortness of breath, cough. GI: Negative for abdominal pain, nausea, vomiting. : Negative for dysuria, hematuria or frequency. Neuro: Negative for headache, motor/sensory dysfunction. Skin: Negative for rash, abscess, or wound. Musc: Positive for left shoulder pain, swelling, trauma. Heme: Negative for easy bruising, bleeding, lymphadenopathy. EXAM <MONAE Posadas Last Filed: 11/19/21 15:55> Physical Exam Narrative Exam Narrative: CONST: Patient sitting in no acute distress. EYES: Normal inspection. PERRLA, EOMI. HEAD: Facial abrasions along frontal scalp, nose and right nasolabial fold, there is a 2 cm flap laceration at the inferior bridge of the nose, 1 cm laceration right nasolabial fold. Swelling and tenderness along the bridge of the nose with no deformity, dried blood in both nares with no septal hematoma. No hemotympanum, no CSF otorrhea or rhinorrhea. NECK: Normal inspection. No midline spinal tenderness, no step off or crepitus. RESP: No respiratory distress, CTAB. Chest wall nontender. CVS: Regular rate and rhythm, no murmur, no gallop. ABD: Soft and nontender, no guarding or rebound, nondistended. Pelvis: Stable, nontender. Back: Normal inspection, no midline spinal tenderness, no step off or crepitus. SKIN: Facial abrasions, no other abrasions or lacerations. EXTREMITIES: Swelling and tenderness over the left shoulder, no other tenderness of upper or lower extremities, 2+ radial and DP pulses. NEURO: Oriented x4. PSYCH: Normal affect. Const Vital Signs: 11/19/21 14:08 11/19/21 14:16 Temperature 97.8 F Temperature Source Temporal Pulse Rate 81 Respiratory Rate 16 Respiratory Effort Normal Respiratory Depth Normal Respiratory Pattern Normal Blood Pressure 171/77 H Blood Pressure Mean 108 Pulse Ox 95 Oxygen Delivery Method Room Air Room Air <Dr. Kiana Jackson DO - Last Filed: 11/19/21 15:29> Physical Exam Const Vital Signs: 11/19/21 14:08 11/19/21 14:16 Temperature 97.8 F Temperature Source Temporal Pulse Rate 81 Respiratory Rate 16 Respiratory Effort Normal Respiratory Depth Normal Respiratory Pattern Normal Blood Pressure 171/77 H Blood Pressure Mean 108 Pulse Ox 95 Oxygen Delivery Method Room Air Room Air MDM <MONAE Posadas - Last Filed: 11/19/21 15:55> [facility] Narrative Medical decision making narrative: MONAE note: Mechanical fall with closed head injury with no LOC, no thinners. Has facial abrasions, small lacerations on the bridge of the nose and right nasolabial fold. No signs of basilar skull fracture, also has pain and deformity of the left shoulder, distal pulses intact. Otherwise exam negative for trauma. CT brain/C-spine/maxillofacial only remarkable for nondisplaced nasal fracture. Shoulder x-ray on ED attending review shows impacted fracture of the neck of the humerus. Wounds were cleansed and do require sutures. The 2 cm like at the top of the bridge of her nose was anesthetized with 1 cc of 1% lidocaine and closed with 3 simple interrupted sutures of 6-0 Ethilon. 1 cm lack of the right nasolabial fold was anesthetized with 1 cc of 1% lidocaine and closed with 2 simple interrupted sutures of 6-0 Ethilon. The rest of the areas are abrasions. We discussed wound care, suture removal in 4 to 5 days, and to monitor for signs of infection. She will be treated for Keflex with open nasal fracture and given ENT follow-up. She is established with an orthopedic doctor, Dr. Winters. Attending spoke to his PA to arrange follow-up. Patient prescribed Percocet, Keflex, and was discharged in stable condition. Diagnoses 1. Closed head injury without loss of consciousness 2. Facial abrasions 3 Open nasal fracture 4. 2 facial lacerations?simple suture repair 5. Left shoulder pain 6. Closed left proximal humerus fracture I have personally performed a face to face assessment of the patient and have reviewed the ALEX Note. I performed a substantive portion of the visit including all aspects of the following. My morrison findings include: History is [patient presents to the emergency department via EMS after sustaining a fall. Patient was at the swimming pool when she tripped and fell while carrying some objects in her hands. Patient struck her head on the ground and injured her left shoulder. She denies loss of consciousness. She denies neck pain. Patient sustained abrasions to her face. Patient denies chest or abdomen pain.] Exam is [HECADEN-PERRLA, EOMI. Cranial nerves II through XII grossly intact. TMs clear. Mucous membranes moist. No adenopathy. Patient has superficial abrasions to her upper lip. She has tenderness palpation over the nasal bridge with a 1.2 cm laceration flap-like. Patient also has 2 cm laceration to the mucosal surface of the lower lip that is well approximated without active bleeding. No dental trauma noted. No septal hematoma noted on exam. No significant tenderness over the C-spine noted. Cardiovascular-regular rate and rhythm without murmur or ectopy Lungs-clear to auscultation, chest wall stable without crepitus or subcu emphysema Abdomen-normoactive bowel sounds, soft, nontender, no rebound or rigidity, no peritoneal signs. Extremities-intact ?4. Left arm-patient is soft tissue swelling over the left shoulder with tenderness palpation over the proximal humerus. Decreased range of motion secondary to pain. Neurovascular intact distally.] Medical Decison Making [patient had a CT scan of the brain as well as the C- spine which were unremarkable. She had a CT scan of the facial bones which showed a nondisplaced nasal bone fracture. X-rays of the left shoulder obtained showed a proximal humerus fracture that is impacted. Patient would like to follow-up with Dr. Winters whom she has seen for orthopedic issues in the past. I will attempt to contact him for follow-up. Patient was placed in a sling and swath. She was medicated with Dilaudid 1 mg IM and Zofran 4 mg IM. Patient was seen in conjunction with physician legal executive assistant who will perform laceration repair to the bridge of the nose. Patient also had a small skin avulsion from the upper lip that I feel would benefit from 1 suture being placed approximate the wound edges. Please see procedure note. Patient will be given a prescription for Gepp for home. Suture removal from facial lacerations and 5 to 7 days.] Other additions or changes: [None] Radiography Diagnostic Testing: Clinical Impression(s) from Imaging Studies Brain CT 11/19/21 14:15 IMPRESSION: Normal unenhanced CT scan of the brain. Electronically Signed: Brendan Hemphill MD at 14:54 EDT , Cervical Spine CT 11/19/21 14:15 IMPRESSION: Multilevel degenerative changes, as described above. Electronically Signed: Brendan Hemphill MD at 15:03 EDT , Facial/Sinus 11/19/21 14:15 IMPRESSION: Nondisplaced nasal fracture. Electronically Signed: Brendan Hemphill MD at 15:01 EDT , Shoulder X-Ray 11/19/21 14:17 IMPRESSION: Comminuted impacted fracture of the surgical neck of the humerus with extension into the greater tuberosity. Mild posterior displacement of the humeral head. Electronically Signed: Brendan Hemphill MD at 14:41 EDT , <Dr. Kiana Jackson, DO - Last Filed: 11/19/21 15:29> [facility] Narrative Medical decision making narrative: I have personally performed a face to face assessment of the patient and have reviewed the ALEX Note. I performed a substantive portion of the visit including all aspects of the following. My morrison findings include: History is [patient presents to the emergency department via EMS after sustaining a fall. Patient was at the swimming pool when she tripped and fell while carrying some objects in her hands. Patient struck her head on the ground and injured her left shoulder. She denies loss of consciousness. She denies neck pain. Patient sustained abrasions to her face. Patient denies chest or abdomen pain.] Exam is [HEENT-PERRLA, EOMI. Cranial nerves II through XII grossly intact. TMs clear. Mucous membranes moist. No adenopathy. Patient has superficial abrasions to her upper lip. She has tenderness palpation over the nasal bridge with a 1.2 cm laceration flap-like. Patient also has 2 cm laceration to the mucosal surface of the lower lip that is well approximated without active bleeding. No dental trauma noted. No septal hematoma noted on exam. No significant tenderness over the C-spine noted. Cardiovascular-regular rate and rhythm without murmur or ectopy Lungs-clear to auscultation, chest wall stable without crepitus or subcu emphysema Abdomen-normoactive bowel sounds, soft, nontender, no rebound or rigidity, no peritoneal signs. Extremities-intact ?4. Left arm-patient is soft tissue swelling over the left shoulder with tenderness palpation over the proximal humerus. Decreased range of motion secondary to pain. Neurovascular intact distally.] Medical Decison Making [patient had a CT scan of the brain as well as the C- spine which were unremarkable. She had a CT scan of the facial bones which showed a nondisplaced nasal bone fracture. X-rays of the left shoulder obtained showed a proximal humerus fracture that is impacted. Patient would like to follow-up with Dr. Winters whom she has seen for orthopedic issues in the past. I will attempt to contact him for follow-up. Patient was placed in a sling and swath. She was medicated with Dilaudid 1 mg IM and Zofran 4 mg IM. Patient was seen in conjunction with physician legal executive assistant who will perform laceration repair to the bridge of the nose. Patient also had a small skin avulsion from the upper lip that I feel would benefit from 1 suture being placed approximate the wound edges. Please see procedure note. Patient will be given a prescription for Gepp for home. Suture removal from facial lacerations and 5 to 7 days.] Other additions or changes: [None] Radiography Diagnostic Testing: Clinical Impression(s) from Imaging Studies Brain CT 11/19/21 14:15 IMPRESSION: Normal unenhanced CT scan of the brain. Electronically Signed: Brendan Hemphill MD at 14:54 EDT , Cervical Spine CT 11/19/21 14:15 IMPRESSION: Multilevel degenerative changes, as described above. Electronically Signed: Brendan Hemphill MD at 15:03 EDT , Facial/Sinus 11/19/21 14:15 IMPRESSION: Nondisplaced nasal fracture. Electronically Signed: Brendan Hemphill MD at 15:01 EDT , Shoulder X-Ray 11/19/21 14:17 IMPRESSION: Comminuted impacted fracture of the surgical neck of the humerus with extension into the greater tuberosity. Mild posterior displacement of the humeral head. Electronically Signed: Brendan Hemphill MD at 14:41 EDT , Discharge Plan Triage Chief Complaint: Fall ED Midlevel Provider: Marguerite Owen ED Provider: Kiana Jackson Dx/Rx/DC Orders Clinical Impression: Closed head injury, Nasal bone fx-open, Fracture of proximal end of left humerus, Abrasion Instructions: ED Mechanical Fall, ED Nose Fracture, with X-Ray, ED Fracture, Upper Extremity, ED Head Injury (Adult) Prescriptions: New hydrocodone-acetaminophen [hydrocodone-acetaminophen] 5-325 mg tablet 1 tab PO Q4H PRN PRN (Reason: Pain) 3 Days Qty: 20 0RF cephalexin [cephalexin] 500 mg capsule 500 mg PO Q6 Qty: 28 0RF No Action pravastatin 40 MG tablet 20 mg PO DAILY atenolol 25 MG tablet 25 mg PO DAILY alendronate 70 MG tablet 70 mg QWEEK acetaminophen 325 MG tablet 650 mg PO Q6H PRN PRN (Reason: Pain Score 1-10/Temp > 100.7 F) 0RF melatonin 3 MG tablet 3 mg PO QHS PRN PRN (Reason: SLEEP) Qty: 30 0RF amlodipine 5 MG tablet 5 mg PO DAILY Qty: 30 0RF calcium carbonate-vitamin D3 1 TABLET tablet 1 tab PO BIDCM 0RF Primary Care Provider: Naren Mendez Referrals: Obed Winters MD [NON-STAFF] - 3-5 Days Joo Toney MD [STAFF PHYSICIAN] - Naren Mendez PA [Primary Care Provider] - Disposition Disposition: Home, Self Care
[2021-11-19] MEDS: HYDROmorphone 1 MG/ML Syringe IM (15:17)
[2021-11-19] MEDS: Ondansetron 4 MG/2 ML Vial IM (15:17)
[2021-11-19] MEDS: Lidocaine 1% (20 ml mdv) 20 ML Vial INFILT (15:45)
[2021-11-19 16:00] VITALS: BP 155/78; PULSE 78; RESP 14; TEMP 37.2; O2SAT 99
== END 2021-11-19 16:08 | disposition home or self-care (01) ==
PROVIDERS: Emergency Provider Emergency Medicine; PCP Physician Assistant; Visit Provider Emergency Medicine
DX: S02.2XXB Fracture of nasal bones, initial encounter for open fracture (principal); S42.212A Unspecified displaced fracture of surgical neck of left humerus, initial encounter for closed fracture; S01.511A Laceration without foreign body of lip, initial encounter; S00.01XA Abrasion of scalp, initial encounter; S00.81XA Abrasion of other part of head, initial encounter; W18.09XA Striking against other object with subsequent fall, initial encounter; Y93.01 Activity, walking, marching and hiking; Y92.89 Other specified places as the place of occurrence of the external cause; I10 Essential (primary) hypertension; Z87.891 Personal history of nicotine dependence
CPT/HCPCS: 12011; 70450; 70486; 72125; 73030; 96372; 99285; J2405

== ENCOUNTER 2022-11-07 12:11 | Emergency (ER) | payer OTHER, MEDICARE, SELFPAY ==
[2022-11-07 12:14] VITALS: BP 203/71; PULSE 72; RESP 14; TEMP 36.8; O2SAT 96; BMI 25.4
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
== END 2022-11-07 14:07 | disposition home or self-care (01) ==
PROVIDERS: Emergency Provider Emergency Medicine; PCP Physician Assistant; Visit Provider Emergency Medicine
DX: Z04.1 Encounter for examination and observation following transport accident (principal); I10 Essential (primary) hypertension; Z79.899 Other long term (current) drug therapy; Z87.891 Personal history of nicotine dependence
CPT/HCPCS: 70450; 71045; 72040; 99284

== ENCOUNTER 2023-07-31 18:48 | Inpatient (IN) | payer MEDICARE, SELFPAY ==
[2023-07-31 18:50] VITALS: PULSE 83; RESP 14; TEMP 35.7; O2SAT 95; BMI 24.3
[2023-07-31 18:54] VITALS: BP 156/84; PULSE 84; RESP 16; O2SAT 92
[2023-07-31] MEDS: 0.9% Normal Saline (1000mL) 1,000 ML 1000 ML IV (18:55)
--- NOTE | 2023-07-31 18:59 | CT_ITS ---
STUDY: CT BRAIN WITHOUT CONTRAST REASON FOR EXAM: Female, 88 years old. fell and hit head RADIATION DOSAGE (If Supplied By Facility): CTDIvol = ( 44.99 ) mGy, DLP = ( 796.11 ) mGycm TECHNIQUE: Transaxial CT imaging of the brain was performed without administration of intravenous contrast material. Individualized dose optimization techniques were used for this CT. COMPARISON: 11/07/2022 FINDINGS: Normal soft tissue structures. Normal calvarium. Normal size ventricles and extra-axial spaces for the patient''s age. Normal white matter tracts of the cerebral hemispheres. Normal basal ganglia and thalami. Normal brainstem. Normal cerebellum. There is no intracranial hemorrhage. There are no findings of an acute ischemic infarction. Normal visualized paranasal sinuses. CT/Brain/Head without Contrast IMPRESSION: Normal unenhanced CT scan of the brain. Electronically Signed: Karri Martinez MD at 20:08 EDT ,
--- NOTE | 2023-07-31 18:59 | EKG12_ITS ---
Test Reason : DYSRHYTHMIA Blood Pressure : / mmHG Vent. Rate : 078 BPM Atrial Rate : 078 BPM P-R Int : 186 ms QRS Dur : 090 ms QT Int : 396 ms P-R-T Axes : 071 -38 042 degrees QTc Int : 451 ms Normal sinus rhythm Left axis deviation Abnormal ECG Confirmed by ALEX BRAXTON, DEREK ([id number]), editorial cartoonist JORGE LUIS BYRD ([id number]) on 08/01/2023 9:22:13 AM Referred By: Confirmed By:DEREK JOHNSON MD
--- NOTE | 2023-07-31 19:03 | RAD_ITS ---
STUDY: X-RAY - PELVIS AND RIGHT HIP REASON FOR EXAM: Female, 88 years old. fall w/ right hip pain TECHNIQUE: 3 views of the pelvis and hip. COMPARISON: None. FINDINGS: There is a non-specific bowel gas pattern. Normal visualized soft tissue structures. Normal bilateral iliac wings, sacroiliac joints and visualized sacrum. Healed fractures of left superior and inferior pubic rami. Normal pubic symphysis. Normal bilateral ischial tuberosities. Normal visualized femoral head. Normal acetabulum. Normal hip joint. RAD/HIP, UNI W/ Pelvis 2-3 Views IMPRESSION: Normal x-ray examination of the pelvis and hip. Electronically Signed: Karri Martinez MD at 19:57 EDT ,
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
[2023-07-31 19:10] LABS: Absolute Lymphocyte Count 0.44 X10^3/uL (0.83-4.51); Absolute Neutrophil Count 14.4 X10^3/uL (2.0-7.7); Basophil# 0.03 X10^3/uL; Basophil% 0.2 % (0-1); Hematocrit 44.1 % (37-47); Hemoglobin 14.8 g/dL (12.0-15.0); Lymphocyte # 0.44 X10^3/ul (0.83-4.51); Lymphocyte % 2.8 % (19-41); Mean Corp Hgb Conc 33.6 g/dL (32-36); Mean Corpuscular Hgb 29.7 pg (27.0-32.0); Mean Corpuscular Volume 88.4 fL (81-99); Mean Platelet Vol. 9.8 fl (6.2-12.0); Monocyte# 0.65 X10^3/uL; Monocyte% 4.2 % (0-10); NRBC Flagged by Analyzer 0 % (0-5); Neutrophil # 14.35 X10^3/uL (2.7-7.7); Neutrophil % 92.3 % (47-70); POSITIVE DIFFERENTIAL YES; Platelet Count 316 K/mm3 (150-450); RBC Distribution Width CV 13.4 % (11.6-14.6); RBC Distribution Width SD 43.4 fl (35.1-43.9); Red Blood Count 4.99 M/mm3 (4.2-5.4); White Blood Count 15.5 K/mm3 (4.4-11.0)
--- NOTE | 2023-07-31 19:38 | RAD_ITS ---
STUDY: X-RAY CHEST REASON FOR EXAM: Female, 88 years old. weakness TECHNIQUE: Single AP portable view of the chest. COMPARISON: None. FINDINGS: The lungs are clear and expanded. There is no demonstrated pleural abnormality. Normal size heart. Normal mediastinum and amador. Normal visualized pulmonary arteries. Normal visualized aortic arch and descending thoracic aorta. Normal visualized thoracic spine. Normal visualized ribs, clavicles, and shoulders. There is no demonstrated abnormality of the visualized soft tissue structures of the upper abdomen. RAD/Chest 1 View (Portable) IMPRESSION: Normal x-ray examination of the chest. Electronically Signed: Karri Martinez MD at 19:58 EDT ,
[2023-07-31 19:49] LABS: ALB/GLOB Ratio 1.1 RATIO (0.9-2.4); AST(SGOT) 126 U/L (15-37); Alanine Aminotransfer ALT/SGPT 47 U/L (13-56); Albumin, Serum 3.8 g/dL (3.2-5.0); Alkaline Phosphatase 52 U/L (45-117); Anion Gap 11 (5-15); BUN 20 mg/dL (7-18); BUN/Creat Ratio 20.5 RATIO (10-20); CPK Total, Creatine Kinase 2883 U/L (26-192); Calcium,Total 9.8 mg/dL (8.5-10.1); Chloride 96 mmol/L (98-107); Creatinine, Serum 0.98 mg/dL (0.55-1.02); EST Glomerular Filtration Rate 57 mL/min (>60); Est Glom Filt Rate - Afr Amer 69 mL/min (>60); Estimated Creatinine Clearance 33.61 ml/min; Globulin 3.6 g/dL (2.2-4.2); Glucose 101 mg/dL (74-106); Protein, Total 7.4 g/dL (6.4-8.2); Sodium Level 131 mmol/L (136-145)
[2023-07-31 20:09] VITALS: BP 127/74; PULSE 87; RESP 118; O2SAT 98
[2023-07-31 20:10] LABS: Bacteria 0 SEEN /hpf (None Seen); Red Blood Cells-Urine 0 SEEN /hpf (0-5); Squamous Epithelial Cells - UA 0 SEEN /hpf (5-10)
[2023-07-31 20:13] LABS: Color, Urine Yellow (Yellow); Glucose, Dipstick Normal (Normal); Leukocyte Esterase-Dipstick 25 /ul (Negative); Nitrite-Dipstick Negative (Negative); Occult Blood-Urine 25 /ul (Negative); Protein-Dipstick 30 mg/dl (Negative); Urine Bilirubin Dipstick Negative (Negative); Urine Clarity Clear (Clear); Urine Urobilinogen Normal (Normal)
[2023-07-31 20:18] LABS: Ketone-Dipstick 150 mg/dl (Negative)
[2023-07-31 20:24] LABS: Hyaline Cast 10-25 SEEN /lpf (0-5); Mucous, Urine 1+ /hpf (<or=2+); White Blood Cells 0-5 SEEN /hpf (0-5)
--- NOTE | 2023-07-31 21:04 | HP.PCM.HOS_ITS ---
HPI - General General Date of Admission: 07/31/23 Date of Service: 07/31/23 Chief Complaint: Fall, prolonged downtime. HPI Narrative The patient is an 88 y/o F w/ PMHx: HTN, HLD, Hx prior mechanical fall with notable pelvic fractures with associated ABLA which resolved who presents to the [facility] ED on 07/31/23 with history of again mechanical fall which occurred as she was stepping backwards and unfortunately lost her balance at 10 AM the day prior with significantly prolonged downtime of approximately 32 hours noted to be at the same level usually ambulating without assistance with ongoing significant right lower extremity/right hip dull aching throb prompting eventual ED evaluation. She was unable to unfortunately reach the phone as it was up on the counter behind her. Patient unfortunately did hit her head with the fall but denies any loss of consciousness. Patient had been at her normal baseline with no significant complaints prior to this injury. Her daughter had stopped her at her home to check on her and found her on the ground. Workup in the ED included T96.3, heart rate 83, BP 156/84, respiratory rate 14, initially 95% on room air with most recent repeat 92% on room air, CBC with WBC 15.5, hemoglobin 14.8, MCV 88.4, platelet 316 with left shift and lymphopenia, CMP sodium 131, chloride 96, BUN/creatinine 20/0.98, GFR 57, T. bili 1.40, AST/ALT 126/47, total creatinine kinase 2883, urinalysis with protein 30, ketones 150, occult blood 250, leukocyte esterase 25 with no marked urine WBCs or evidence of any bacteria, chest x-ray with no acute cardiopulmonary findings, plain film of the right hip and pelvis with no acute findings, CT head with no acute intracranial finding. In the ED patient administered 1 L normal saline bolus. [facility] Medical History Former tobacco use History of pelvic fracture Hyperlipidemia Hypertension Home Medications atenolol 25 mg tablet 25 mg PO DAILY heart 04/25/20 [History Last Taken 04/25/20] pravastatin 40 mg tablet 20 mg PO DAILY hyperlipidemia 04/25/20 [History Last Taken 04/24/20] alendronate 70 mg tablet 70 mg QWEEK bone health 04/26/20 [History Last Taken 04/28/20 10:33] acetaminophen 325 mg tablet 650 mg (2 x 325 mg) PO Q6H PRN PRN Pain Score 1- 10/Temp > 100.7 F 04/28/20 [Rx Last Taken Unknown] amlodipine 5 mg tablet 5 mg PO DAILY #30 tabs 05/06/20 [Rx Last Taken Unknown] calcium carbonate 500 mg-vitamin D3 5 mcg (200 unit) tablet 1 tab PO BIDCM 05/06/20 [Rx Last Taken Unknown] melatonin 3 mg tablet 3 mg PO QHS PRN PRN SLEEP #30 tabs 05/06/20 [Rx Last Taken Unknown] cephalexin 500 mg capsule 500 mg PO Q6 #28 CAPSULES 11/19/21 [Rx Last Taken Unknown] hydrocodone-acetaminophen 5-325mg 5mg-325mg 1 tab PO Q4H PRN PRN Pain 3 days #20 TABLETS 11/19/21 [Rx Last Taken Unknown] Allergy/AdvReac Type Severity Reaction Status Date / Time clarithromycin [From Biaxin] Allergy Mild Hives Verified 07/31/23 18:53 Family History (Updated 07/31/23 @ 21:[address] Audra Llamas MD) Mother Breast cancer Father MVA (motor vehicle accident) Father MVA with history of leg amputation with debilities associated Heart disease Surgical History H/O left wrist surgery S/P appendectomy S/P hernia repair Social History (Updated 07/31/23 @ 21:[address] Audra Llamas MD) household members: none Smoking Status: Former smoker how long ago did patient quit smoking: Quit ~ 55 years prior, smoked 1/2 ppd from 18 until quit. alcohol intake: never substance use type: does not use ROS ROS Narrative Admission Review of Systems: CONSTITUTIONAL: No weight loss, fever, chills, + weakness or fatigue. HEENT: Eyes: No visual loss, blurred vision, double vision or yellow sclerae. Ears, Nose, Throat: No hearing loss, sneezing, congestion, runny nose or sore throat. SKIN: No rash or itching, lesions, wounds. CARDIOVASCULAR: No chest pain, chest pressure or chest discomfort, palpitations, edema, orthopnea, syncopal events. RESPIRATORY: No shortness of breath, cough or sputum, wheezing, hemoptysis. GASTROINTESTINAL: No anorexia, nausea, vomiting or diarrhea, abdominal pain, melena, BRBPR. GENITOURINARY: No dysuria, frequency, urgency or retention. NEUROLOGICAL: No headache, dizziness, syncope, paralysis, ataxia, numbness or tingling in the extremities, focal weakness, change in bowel or bladder control, seizure. MUSCULOSKELETAL: + muscle, back pain, joint pain or stiffness. HEMATOLOGIC: + History of previous remote anemia associated with injury, easy bruising. No bleeding. LYMPHATICS: No enlarged nodes. No history of splenectomy. PSYCHIATRIC: No history of depression or anxiety. ENDOCRINOLOGIC: No reports of sweating, cold or heat intolerance. No polyuria or polydipsia. ALLERGIES: + History of hives. Vital Signs Vital Signs Vital Signs: 07/31/23 18:50 07/31/23 18:54 07/31/23 20:09 Temperature 96.3 F L Temperature Source Temporal Pulse Rate 83 84 87 Respiratory Rate 14 16 118 H Blood Pressure 156/84 H 127/74 H Blood Pressure Mean 108 91 Pulse Ox 95 92 98 Oxygen Delivery Method Room Air Room Air Room Air Weight Weight: 141 lb 15.643 oz Body Mass Index (BMI) 24.3 Physical Exam Narrative Physical Examination: General: Awake, alert, oriented x 3 and cooperative, seated upright in the bed, fatigued, denies any current severe pain. Skin: Normal color, normal turgor, no icterus, no cyanosis except occasional staged ecchymoses, abrasion. HEENT: AT/NC, EOMI, PERRLA, dry MM, no carotid bruits or JVD noted. Lungs: Mildly diminished, greater bases, proper effort, no rales, ronchi or w heezing. Heart: Currently regular rate and rhythm; no gallop, rub audible, SM+ . Abdomen: Soft, NTTP, ND, mildly hyperactive BS, no appreciated HSM. Extremities: No cyanosis, no clubbing, mild ankle not markedly pitting edema. Neurological: Patient awake, alert, oriented as noted, cognitive function intact; pupils equally reactive to light and accommodation, cranial nerves II- XII grossly normal, moving all 4 extremities, no focal deficits, strength moderately to severely globally decreased secondary to recent fall with discomfort, debility. Psychiatric: Affect appears fatigued otherwise normal, no acute evidence of depressive or anxiety feelings. Results Lab / Micro Data 07/31/23 19:05 07/31/23 19:05 Labs: Laboratory Results - last 24 hr 07/31/23 19:05: WBC 15.5 H, RBC 4.99, Hgb 14.8, Hct 44.1, MCV 88.4, MCH 29.7, MCHC 33.6, RDW Std Deviation 43.4, RDW Coeff of Jack 13.4, Plt Count 316, MPV 9 .8, Immature Gran % (Auto) 0.500, Neut % (Auto) 92.3 H, Lymph % (Auto) 2.8 L, [place] % (Auto) 4.2, Eos % (Auto) 0.0, Baso % (Auto) 0.2, Absolute Neuts (auto) 14.4 H, Absolute Lymphs (auto) 0.44 L, Nucleated RBC % 0, Sodium 131 L, Potassium 4.0, Chloride 96 L, Carbon Dioxide 24.0, Anion Gap 11, BUN 20 H, Creatinine 0.98, Estim Creat Clear Calc 33.61, Est GFR (MDRD) Af Amer 69, Est GFR (MDRD) Non-Af 57 L, BUN/Creatinine Ratio 20.5 H, Glucose 101, Calcium 9.8, Total Bilirubin 1.40 H, AST 126 H, ALT 47, Alkaline Phosphatase 52, Total C reatine Kinase 2883 H, Total Protein 7.4, Albumin 3.8, Globulin 3.6, Albumin/Globulin Ratio 1.1 07/31/23 20:00: Urine Color Yellow, Urine Clarity Clear, Urine pH 5.0, Ur Specific [place] 1.030, Urine Protein 30 H, Urine Glucose (UA) Normal, Urine Ketones 150 A*, Urine Occult Blood 25 H, Urine Nitrite Negative, Urine Bilirubin Negative, Urine Urobilinogen Normal, Ur Leukocyte Esterase 25 H, Urine RBC 0 SEEN, Urine WBC 0-5 SEEN, Ur Squamous Epith Cells 0 SEEN, Urine Bacteria 0 SEEN, Hyaline Casts 10-25 SEEN, Urine Mucus 1+ Rhythm Strip Rhythm Strip: Sinus Rhythm Rate: 78 Ectopy: None Imaging Radiology Impression Brain CT 07/31/23 18:59 IMPRESSION: Normal unenhanced CT scan of the brain. Electronically Signed: Karri Martinez MD at 20:08 EDT , Hip/Pelvis X-Ray 07/31/23 19:03 IMPRESSION: Normal x-ray examination of the pelvis and hip. Electronically Signed: Karri Martinez MD at 19:57 EDT Reading Location ID and State: [id number] / [employer] Tel , Service support , Chest X-Ray 07/31/23 19:38 IMPRESSION: Normal x-ray examination of the chest. Electronically Signed: Karri Martinez MD at 19:58 EDT , Assessment & Plan Assessment/Plan (1) Fall: QUALIFIERS: Encounter type: subsequent encounter Qualified Code(s): W19.XXXD - Unspecified fall, subsequent encounter PLAN: Plan The patient is an 88 y/o F w/ PMHx: HTN, HLD, Hx prior mechanical fall with notable pelvic fractures with associated ABLA which resolved who presents to the [facility] ED on 07/31/23 with history of again mechanical fall which occurred as she was stepping backwards and unfortunately lost her balance at 10 AM the day prior with significantly prolonged downtime of approximately 32 hours noted to be at the same level usually ambulating without assistance with ongoing significant right lower extremity/right hip dull aching throb prompting eventual ED evaluation. #1. Acute rhabdomyolysis with mildly elevated total bilirubin, AST as well as mildly decreased GFR from previous baseline however remote labs: Will admit to medical surgical floor, we will continue to hydrate, monitor urine output, will have pain regimen as needed, encourage continued movement, PT/OT/case management consulted. Will repeat CMP as well as total creatinine kinase in AM. #2. Acute renal insufficiency on CKD stage II based on remote GFR trending versus progressive renal disease with now CKD stage III unclear subtype based on GFR: Admission BUN/creatinine 20/0.98, GFR 57, had previously been in the usual 80 range from prior review however this was in 2019 thus certainly could have progressed, will hydrate especially given rhabdomyolysis concurrently as noted, repeat CMP in AM. #3. Hyponatremia, hypochloremia, hypovolemic component given acute presentation as noted: Admission CMP with sodium 131, chloride 96, continue hydration, repeat CMP in AM. #4. Mechanical fall with significant downtime with associated debility, adult failure to thrive: Secondary to #1, #2, #3, continue treatments as noted, maintain on fall precautions, PT/OT/case management consulted for discharge planning. Urinalysis requested to be cautious although leukocytosis certainly could be from patient dehydrated status and stress response. #5. Hypertension: Clarifying regimen as last fill was in 2022 but had been on atenolol, will clarify regimen and initiate if appropriate, as needed IV hydralazine in interim #6. Hyperlipidemia: clarifying regimen his last fill was in 2022 but patient had been on pravastatin, will clarify regimen and initiate if appropriate. #7. Former tobacco use: Encourage continued tobacco cessation. #9. DVT prophylaxis: Lovenox. #10. CODE status: Patient AUGUSTO is her eldest daughter and living will is currently in place. Discussed CODE status at length including difference between FULL code, DNR-CCA and DNR-CC status. Following discussions about the differences in these status, requested Full Code status. Advanced Care Planning Face to Face Time: 16 minutes. Charges/Coding Visit Charges Inpatient E&M: 14826 Init Hosp L3 Procedures Hospitalists Procedures: 11769 Advncd Care Plan 30 Min
[2023-07-31 21:10] VITALS: BP 139/58; PULSE 79; RESP 16; TEMP 36.6; O2SAT 96
[2023-07-31] MEDS: 0.9% Normal Saline (1000mL) 1,000 ML 999 ML IV (21:46)
[2023-07-31 21:53] VITALS: BP 139/64; PULSE 84; RESP 15; TEMP 36.6; O2SAT 94
[2023-07-31 22:10] VITALS: BMI 21.4
[2023-07-31 22:24] VITALS: BP 159/59; PULSE 83; RESP 17; TEMP 36.4; O2SAT 96
[2023-07-31] MEDS: 0.9% Normal Saline (1000mL) 1,000 ML 125 ML IV (22:47)
[2023-07-31] MEDS: Menthol/Lanolin/Calamine/Znox 113 GM Tube 1 APPLIC TOPICAL (22:47)
[2023-07-31] MEDS: Acetaminophen 325 MG Tablet 650 MG PO (23:32)
[2023-08-01 04:16] VITALS: BMI 21.7
[2023-08-01] MEDS: 0.9% Normal Saline (1000mL) 1,000 ML 125 ML IV (05:05)
[2023-08-01] MEDS: Acetaminophen 325 MG Tablet 650 MG PO (05:34)
[2023-08-01 05:39] VITALS: BP 151/70; PULSE 72; RESP 16; TEMP 36.4; O2SAT 97
[2023-08-01 06:09] LABS: Absolute Lymphocyte Count 0.87 X10^3/uL (0.83-4.51); Absolute Neutrophil Count 10.1 X10^3/uL (2.0-7.7); Basophil# 0.03 X10^3/uL; Basophil% 0.3 % (0-1); Eosinophil# 0.15 X10^3/uL; Eosinophils% 1.3 % (0-5); Hematocrit 34.3 % (37-47); Hemoglobin 11.3 g/dL (12.0-15.0); Lymphocyte # 0.87 X10^3/ul (0.83-4.51); Lymphocyte % 7.3 % (19-41); Mean Corp Hgb Conc 32.9 g/dL (32-36); Mean Corpuscular Hgb 29.3 pg (27.0-32.0); Mean Corpuscular Volume 88.9 fL (81-99); Mean Platelet Vol. 9.8 fl (6.2-12.0); Monocyte# 0.76 X10^3/uL; Monocyte% 6.4 % (0-10); NRBC Flagged by Analyzer 0 % (0-5); Neutrophil # 10.07 X10^3/uL (2.7-7.7); Neutrophil % 84.2 % (47-70); Platelet Count 254 K/mm3 (150-450); RBC Distribution Width CV 13.9 % (11.6-14.6); Red Blood Count 3.86 M/mm3 (4.2-5.4); White Blood Count 11.9 K/mm3 (4.4-11.0)
[2023-08-01 06:50] LABS: AST(SGOT) 78 U/L (15-37); Alanine Aminotransfer ALT/SGPT 39 U/L (13-56); Albumin, Serum 2.8 g/dL (3.2-5.0); Alkaline Phosphatase 39 U/L (45-117); Anion Gap 7 (5-15); BUN 29 mg/dL (7-18); BUN/Creat Ratio 32.6 RATIO (10-20); CPK Total, Creatine Kinase 1503 U/L (26-192); Calcium,Total 8.4 mg/dL (8.5-10.1); Chloride 103 mmol/L (98-107); Creatinine, Serum 0.89 mg/dL (0.55-1.02); EST Glomerular Filtration Rate 64 mL/min (>60); Est Glom Filt Rate - Afr Amer 77 mL/min (>60); Estimated Creatinine Clearance 41.67 ml/min; Globulin 2.8 g/dL (2.2-4.2); Glucose 116 mg/dL (74-106); Potassium 3.4 mmol/L (3.5-5.1); Protein, Total 5.6 g/dL (6.4-8.2); Sodium Level 135 mmol/L (136-145)
[2023-08-01] MEDS: Potassium Chloride Oral Tablet 20 MEQ 40 MEQ PO (08:02)
[2023-08-01] MEDS: Pravastatin 20 MG Tablet PO (08:09)
[2023-08-01] MEDS: Calcium Carb/Vitamin D 1 TABLET Tablet 2 TABLET PO (08:09)
[2023-08-01] MEDS: Enoxaparin 40 MG/0.4 ML Syringe SC (08:11)
[2023-08-01] MEDS: Menthol/Lanolin/Calamine/Znox 113 GM Tube 1 APPLIC TOPICAL (08:11)
[2023-08-01] MEDS: Atenolol 25 MG Tablet PO (08:13)
[2023-08-01 09:10] VITALS: BP 139/70; PULSE 76; RESP 18; TEMP 37; O2SAT 98
--- NOTE | 2023-08-01 10:17 | CASEMGMT ---
Addendum entered by Columba Goldman 08/01/23 11:52: Pt denies need for a list of options for Rehab unit and SNF. Pt states she would like to stay at [facility]. Addendum entered by Columba Goldman 08/01/23 11:51: DEO JOVEL into pt room to discuss dc planning. She is aware that therapy did not feel pt was safe to return home at this time. Discussed options such as SNF or Rehab unit. Pt states she has been to [facility] Rehab unit before and that would be great. Updated SW. Provided pt with printed medic alert information at this time as well. Addendum entered by Columba Goldman 08/01/23 10:56: TC to therapy, spoke with PT who states C would be appropriate for pt. TC to to make referral and therapist came who discussed pt care with OT and they are recommending SNF. Original Note: DEO JOVEL Assessment: Face to Face with pt for initial transition planning/care coordination assessment. DEO JOVEL introduced self and role at [facility], pt voices understanding and consents to assessment. Pt is A&O x4 and answers all questions appropriately at this time. Pt sitting up in chair in no distress. Pt states she just worked with therapy. Care providers, pharmacy, and demographics verified/updated. Admitting Dx: fall, rhabdo, electrolyte disturbance PCP:Frederick LICONA Specialists:Denies Preferred Pharmacy: [facility] Insurance: [facility] Prescription Benefit: no LNOK: Sandra Travis, dtr Living Arrangements: Pt lives alone in a single story home with 2 steps to enter. Pt reports that she is typically I in ADL's and denies concerns at home. 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 Discussed medic alert and pt is agreeable to this. Transportation: Pt drives self and denies concerns with transportation. DME:standard walker, canes- doesn't use; shower chair HHC/SNF: [facility] HH in the past, denies SNF stays Pt states no concerns with going home at time of dc. Pt felt she did well with therapy. Pt is interested in therapy at home. She would like [facility] and denies need for a list of other options. Pt states no further concerns/needs. CM to follow. Advised pt to ask CM if any further question/concerns/needs arise, voices understanding. Pt Goal: Home with HHC Plan: Home with HHC, medic alert information pending therapy praful Lu RN CM
--- NOTE | 2023-08-01 12:16 | CASEMGMT ---
Addendum entered by Joyce Luna 08/01/23 16:55: Social Work SW faxed over discharge paperwork to rehab. Pt to rehab today. CHARISSA Montejo Addendum entered by Joyce Luan 08/01/23 15:50: Social Work Pt accepted into rehab today. SW let pt know, pt agreeable, okay w/SW calling her daughter to let her know. SW called daughter, let her know pt going to rehab today, daughter agreeable. No further needs. CHARISSA Montejo Original Note: Social Work Referral made to inpt rehab, awaiting response. CHARISSA Montejo
[2023-08-01 15:51] VITALS: BP 147/61; PULSE 62; RESP 18; TEMP 36.8; O2SAT 98
[2023-08-01 15:52] VITALS: PULSE 62
--- NOTE | 2023-08-01 16:02 | PCM.DC.SUM ---
Providers Date of Admission: 07/31/23 Date of Discharge: 08/01/23 Primary Care Physician: MONAE Loja Reason For Visit: FALL, RHABDO, ELECTROLYTE DISTURBANCE Diagnosis Discharge Diagnosis (1) Fall: Status: Acute Code(s): W19.XXXA - Unspecified fall, initial encounter Qualifiers: Encounter type: subsequent encounter Qualified Code(s): W19.XXXD - Unspecified fall, subsequent encounter Medications at Discharge Home Medications atenolol 25 mg tablet 25 mg PO DAILY heart 04/25/20 pravastatin 40 mg tablet 20 mg PO DAILY hyperlipidemia 04/25/20 melatonin 3 mg tablet 3 mg PO QHS PRN PRN SLEEP #30 tabs 05/06/20 calcium carbonate 500 mg-vitamin D3 5 mcg (200 unit) tablet 2 tab PO BIDCM supplement 07/31/23 oxycodone 5 mg tablet 2.5 mg (1/2 x 5 mg) PO Q4H PRN PRN MODSEVPAIN #0 tabs 08/01/23 sennosides 8.6 mg-docusate sodium 50 mg tablet (Stool Softener-Stimulant Laxative) 2 tab PO BID PRN PRN Constipation #0 tabs 08/01/23 Hospital Course Operations None Procedures EKG and - (Chest x-ray/hip and pelvic x-rays/brain CT) Summary of Care Provided Minutes Spent on Discharge: 30 Hospital Course: Mrs. Varma is an 88-year-old white female with a history of Parkinson disease who presented to the emergency department at [facility] on 07/31/2023 after a mechanical fall which occurred while she was stepping backwards. She lost her balance at approximately 10 AM with her fall occurring at that time and downtime was approximately 32 hours. Upon presentation she had some aching in her right lower extremity and dull right hip pain but was able to ambulate at her baseline. With her pain she decided to come to the emergency department. She did hit her head but denied loss of consciousness. The squad was called when her daughter came to check on her and found her on the ground. Vital signs on presentation were unremarkable. CBC showed a mildly elevated white count of 15.5 with a left shift and lymphopenia. Sodium was 131 and BUN was 20 with a creatinine of 0.98. Her AST was mildly elevated 126 but her ALT was normal. CPK was 2882. UA was not consistent with infection. Chest x-ray was unremarkable. Imaging of her right hip and pelvis was unremarkable. CT of her head was unremarkable. She was given 1 L of IV fluids emergency department and then admitted to the medical floor where she was placed on ongoing IV fluids to address her acute rhabdomyolysis. By the a.m. of 08/01/2023 her CK had already trended down and was at 1503 with normal renal function. Her bilirubin elevation had resolved and her AST trended down as well. Her sodium had improved to 135 however she was found to be mildly hypokalemic with a potassium of 3.4. For this she was given 40 mill equivalents p.o. potassium. The patient does have a significant history of Parkinson's and has intermittent falls. As noted above, she was fortunate not having any fractures as she does report a history of osteoporosis. Her white count trended down with no antimicrobial intervention. I suspect this was related to acute response to fall and injury. She was evaluated by physical and Occupational Therapy and she ambulated well but had significant difficulty moving from a seated position and with bed mobility so ongoing rehab services were recommended and she was accepted at acute rehab on 08/01/2023. Her medical issues resolved more quickly than anticipated at the time of admission and she was able to be discharged in stable condition for ongoing rehab services on 07/31/2023 to the acute inpatient rehab unit here at the hospital. Discharge diagnoses: Mild rhabdomyolysis Dehydration Mechanical fall Parkinson's disease Hypokalemia-repleted Hyponatremia-resolving Hypertension Hyperlipidemia History of tobacco abuse Physical Exam Const alert, oriented x3, no apparent distress, average body habitus, no limitations and well nourished Constitutional Narrative: Elderly, white female, sitting up in a chair at the bedside, appears younger than stated age, very pleasant and interacts appropriately, nontoxic General Appearance: cooperative, comfortable, well kempt and well developed Orientation / Consciousness: awake, oriented to person, oriented to place and oriented to time Exam Limitations: no limitations HEENT normocephalic, head/scalp atraumatic and moist oral mucous membranes HEENT Narrative: Mild hearing loss, Mallampati is 2, no thrush Resp normal respiratory effort, no retractions, no use of accessory muscles and clear to auscultation bilaterally Auscultation: Negative for rales, rhonchi or wheezes Cardio regular rate, regular rhythm, S1 normal heart sound, S2 normal heart sound, no murmurs, no rub, no gallops and no clicks GI normal to inspection, nondistended, normoactive bowel sounds, soft to palpation and non-tender Extremity no clubbing, cyanosis or edema Extremity Narrative: Pedal and radial pulses are 2+ Neuro oriented x3, moves all extremities and no focal motor deficits Neuro Narrative: Patient with mild bradykinesia and masked facies, speech response times seem to be unaffected by her Parkinson's Speech: speech normal Psych affect normal Psych Narrative: Eye contact is good, patient interacts appropriately Weight / BMI Weight Weight: 62.7 kg Body Mass Index (BMI) 21.7 ABG / Lab / Microbiology Data 08/01/23 05:34 08/01/23 05:34 Laboratory: Laboratory Results - last 24 hr 07/31/23 19:05: WBC 15.5 H, RBC 4.99, Hgb 14.8, Hct 44.1, MCV 88.4, MCH 29.7, MCHC 33.6, RDW Std Deviation 43.4, RDW Coeff of Jack 13.4, Plt Count 316, MPV 9.8, Immature Gran % (Auto) 0.500, Neut % (Auto) 92.3 H, Lymph % (Auto) 2.8 L, [place] % (Auto) 4.2, Eos % (Auto) 0.0, Baso % (Auto) 0.2, Absolute Neuts (auto) 14.4 H, Absolute Lymphs (auto) 0.44 L, Nucleated RBC % 0, Sodium 131 L, Potassium 4.0, Chloride 96 L, Carbon Dioxide 24.0, Anion Gap 11, BUN 20 H, Creatinine 0.98, Estim Creat Clear Calc 33.61, Est GFR (MDRD) Af Amer 69, Est GFR (MDRD) Non-Af 57 L, BUN/Creatinine Ratio 20.5 H, Glucose 101, Calcium 9.8, Total Bilirubin 1.40 H, AST 126 H, ALT 47, Alkaline Phosphatase 52, Total Creatine Kinase 2883 H, Total Protein 7.4, Albumin 3.8, Globulin 3.6, Albumin/Globulin Ratio 1.1 07/31/23 20:00: Urine Color Yellow, Urine Clarity Clear, Urine pH 5.0, Ur Specific [place] 1.030, Urine Protein 30 H, Urine Glucose (UA) Normal, Urine Ketones 150 A*, Urine Occult Blood 25 H, Urine Nitrite Negative, Urine Bilirubin Negative, Urine Urobilinogen Normal, Ur Leukocyte Esterase 25 H, Urine RBC 0 SEEN, Urine WBC 0-5 SEEN, Ur Squamous Epith Cells 0 SEEN, Urine Bacteria 0 SEEN, Hyaline Casts 10-25 SEEN, Urine Mucus 1+ 08/01/23 05:34: WBC 11.9 H, RBC 3.86 L, Hgb 11.3 L, Hct 34.3 L, MCV 88.9, MCH 29.3, MCHC 32.9, RDW Std Deviation 45.0 H, RDW Coeff of Jack 13.9, Plt Count 254, MPV 9.8, Immature Gran % (Auto) 0.500, Neut % (Auto) 84.2 H, Lymph % (Auto) 7.3 L, [place] % (Auto) 6.4, Eos % (Auto) 1.3, Baso % (Auto) 0.3, Absolute Neuts (auto) 10.1 H, Absolute Lymphs (auto) 0.87, Nucleated RBC % 0, Sodium 135 L, Potassium 3.4 L, Chloride 103, Carbon Dioxide 25.0, Anion Gap 7, BUN 29 H, Creatinine 0.89, Estim Creat Clear Calc 41.67, Est GFR (MDRD) Af Amer 77, Est GFR (MDRD) Non-Af 64, BUN/Creatinine Ratio 32.6 H, Glucose 116 H, Calcium 8.4 L, Total Bilirubin 0.50, AST 78 H, ALT 39, Alkaline Phosphatase 39 L, Total Creatine Kinase 1503 H, Total Protein 5.6 L, Albumin 2.8 L, Globulin 2.8, Albumin/Globulin Ratio 1.0 Radiography Diagnostic Testing: Radiology Impression Brain CT 07/31/23 18:59 IMPRESSION: Normal unenhanced CT scan of the brain. Electronically Signed: Karri Martinez MD at 20:08 EDT , Hip/Pelvis X-Ray 07/31/23 19:03 IMPRESSION: Normal x-ray examination of the pelvis and hip. Electronically Signed: Karri Martinez MD at 19:57 EDT , Chest X-Ray 07/31/23 19:38 IMPRESSION: Normal x-ray examination of the chest. Electronically Signed: Karri Martinez MD at 19:58 EDT , D/C Instructions Discharge Diet: No restrictions Discharge Activity: Return to Normal Activity Meaningful Use Info Meaningful Use Diagnoses (Choose all that apply): None applicable Discharge Plan Admission Admit Date/Time: 07/31/23 21:05 Primary Reason for Your Visit: Fall Attending Provider: Fauzia Norwood Primary Care Provider: Naren Mendez Consulting Providers: Audra Llamas Instructions Additional Instructions / Restrictions: 1. Repeat BMP in 5 days Discharge Orders/Prescriptions Prescriptions: New sennosides-docusate sodium [Stool Softener-Stimulant Laxat] 8.6-50 mg Tablet 2 tab PO BID PRN PRN (Reason: Constipation) Qty: 0 0RF oxycodone 5 mg Tablet 2.5 mg PO Q4H PRN PRN (Reason: MODSEVPAIN) Qty: 0 0RF Continued pravastatin 40 MG tablet 20 mg PO DAILY atenolol 25 MG tablet 25 mg PO DAILY melatonin 3 MG tablet 3 mg PO QHS PRN PRN (Reason: SLEEP) Qty: 30 0RF calcium carbonate-vitamin D3 1 TABLET tablet 2 tab PO BIDCM Referrals / Follow Up: Naren Mendez PA [Primary Care Provider] - Within 1 Month Disposition Disposition (needs filled in before D/C Order can be placed): Inpatient Rehab Unit/Facility Charges/Coding Visit Charges Inpatient E&M: 11676 Disch Hosp
[2023-08-01 16:50] VITALS: BP 147/61; PULSE 62; RESP 18; TEMP 36.8; O2SAT 98
== END 2023-08-01 17:54 | DRG 558 ==
LOC: ED 21:09 → MS3 21:31
PROVIDERS: Admitting Provider Family Medicine; Emergency Provider Emergency Medicine; PCP Physician Assistant; Visit Provider Internal Medicine
DX: M62.82 Rhabdomyolysis (principal); E87.1 Hypo-osmolality and hyponatremia; E87.8 Other disorders of electrolyte and fluid balance, not elsewhere classified; S09.90XA Unspecified injury of head, initial encounter; N18.30 Chronic kidney disease, stage 3 unspecified; I12.9 Hypertensive chronic kidney disease with stage 1 through stage 4 chronic kidney disease, or unspecified chronic kidney disease; E78.5 Hyperlipidemia, unspecified; E86.0 Dehydration; E87.6 Hypokalemia; E86.1 Hypovolemia; M25.551 Pain in right hip; S20.419A Abrasion of unspecified back wall of thorax, initial encounter; W18.30XA Fall on same level, unspecified, initial encounter; G20.A1 Parkinson's disease without dyskinesia, without mention of fluctuations; Y92.000 Kitchen of unspecified non-institutional (private) residence as the place of occurrence of the external cause; M81.0 Age-related osteoporosis without current pathological fracture; R62.7 Adult failure to thrive; Z68.21 Body mass index [BMI] 21.0-21.9, adult; R53.81 Other malaise; Z79.83 Long term (current) use of bisphosphonates; Z79.899 Other long term (current) drug therapy; Z87.891 Personal history of nicotine dependence
CPT/HCPCS: 36415; 70450; 71045; 73502; 80053; 81001; 82550; 85025; 93005; 94668; 97162; 97166; 99285; J7030; P9612

== ENCOUNTER 2023-08-01 18:00 | Inpatient (IN) | payer MEDICARE, SELFPAY ==
[2023-08-01 18:32] VITALS: BP 134/54; PULSE 63; RESP 18; TEMP 37; O2SAT 98; BMI 22.4
[2023-08-01 19:33] VITALS: BP 130/72; PULSE 85; RESP 16; TEMP 37.1; O2SAT 98
[2023-08-01 22:00] VITALS: PULSE 66; RESP 16; O2SAT 97
[2023-08-01] MEDS: Senna/Docusate Sodium 1 Tablet 2 TABLET PO (22:36)
[2023-08-02] MEDS: Enoxaparin 40 MG/0.4 ML Syringe SC (05:10)
[2023-08-02 06:59] VITALS: O2SAT 95
[2023-08-02] MEDS: Senna/Docusate Sodium 1 Tablet 2 TABLET PO (08:50)
[2023-08-02] MEDS: Atenolol 25 MG Tablet PO (08:50)
[2023-08-02] MEDS: Calcium Carb/Vitamin D 1 TABLET Tablet 2 TABLET PO (08:50)
[2023-08-02] MEDS: oxyCODONE 5 MG Tablet 2.5 MG PO (08:57)
[2023-08-02 09:03] VITALS: BP 143/65; PULSE 76; RESP 15; TEMP 36.4; O2SAT 94
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
--- NOTE | 2023-08-02 13:34 | REHABEVAL_ITS ---
Admission Information Primary Diagnosis:: Debility due to a fall with rhabdomyolysis Status Changes from Prescreening?: Medical (Exam and hx are consistent with probable PD. ) Actual Problem List:: Falls, Bladder Incontinence (urge incontinence), Mobility Impaired, Self Care Deficit, Fluid Change-Dehydration and Alteration-Leisure Activ. Potential Problem List:: DVT, Bleeding, Infection, UTI, Aspiration, Falls, Skin Integrity and Depression Risk of Complications DVT: LMWH and OC Hose Bleeding: Monitor Lab Values, Nursing to Teach Precautions for anti-coagulation therapy., Wound, if applicable, to be assessed every shift. and Stroke patients assessed for lethargy or change in status. Infection: Clinical Staff to Monitor for S/S of infection: and S/S of infection include fever, redness, warmth, etc. Urinary Tract Infection: Monitor for frequency, burning, discomfort, or incontinence. and Nursing will obtain urine sample for urinalysis and C&S when ordered. Aspiration: Clinical staff will monitor for coughing, drooling, congestion., Speech will evaluate swallowing and dsyphasia. and Nursing will monitor patient swallowing during meals. Falls: Patient will be evaluated for Fall Precautions and Patient will be placed on Fall Precautions as indicated per protocol. Skin Breakdown: Nursing will assess skin daily using assessment tool. and Nursing will place on Skin Breakdown Precautions as indicated. Pain: Clinical staff will assess patient's pain level per protocol., Medications will be given, if needed, and the pain level reassessed. and Other methods: Massage, distraction, decrease stimulus, etc. used PRN. Plan of Care Patient requires physician specializing in physical medicine and rehab oversight to provide close medical supervision of rehab issues including: Pain Management, Sleep Problems, Bowel and Bladder, Medical and co-morbidity Management, DVT prophylaxis, Rehabilitation Leadership and Coordination of treatment team Patient needs Physical Therapy: For a minimum of 1 hour and At least 5 out of 7 days Patient needs Physical Therapy to improve:: Mobility, Strengthening, Transfers, Stretching, ROM, Endurance, Stairs, Gait and Balance Patient needs Occupational Therapy: For a minimum of 1 hour and At least 5 out of 7 days Patient needs Occupational Therapy to improve ADL's incl.: Eating, Grooming, Bathing, Dressing, Toileting, Toilet transfers, Community Reintegration, Higher functioning activities, Household tasks, Adaptive Equipment, Splinting and Other activities as determined Patient requires speech therapy for: Swallowing, Cognition, Language Skills and Compensatory Strategies Patient requires 24/7 Rehabilitation Nursing for: Pain Issues, Identifying and preventing risk factors, Monitoring and reporting current medical conditions, Assisting with ambulation, transfer, and all ADL's, Teaching patients about dise ase process and medications, Family teaching, Providing safe environment, Bowel and Bladder Issues, Skin integrity and Medication Management Patient needs Retail Shift Supervisor/ Case Management for: Discharge Planning, Arranging Home Equipment or Services and Family Interventions Patient needs Dietary and Nutrition Services for: Adequate Nutrition, Nutriti onal Supplements and Nutritional Education Goals Goals Patient will remain: free from falls Patient will perform eating at: MOD I level of assist. Patient will perform bed mobility at: MOD I level of assist. Patient will complete transfers from bed to chair at: MOD I level of assist. Patient will ambulate: - (300 feet at mod I with least restrictive device on various surfaces to allow her to return to her home/community.) Patient will complete upper body dressing at: MOD I level of assist. Patient will complete lower body dressing at: MOD I level of assist. (With adaptive equipment as needed.) Patient will complete toilet transfer at: MOD I level of assist. Patient will complete toileting at: MOD I level of assist. Patient will perform bathing at: MOD I level of assist. Patient will perform Tub/Shower transfer at: MOD I level of assist. Patient will complete grooming at: MOD I level of assist. Patient will complete home management skills at: MOD I level of assist. Patient will achieve: - (2 steps with 2 handrails at standby assist to allow access to her home entrance) Patient will have pain level of: of 3 or less Patient's skin will: remain intact Patient will receive: adequate nutrition. Discharge Planning Pt Prognosis for Sig. Practical Improv. w/in Reasonable Time: Good Estimated Length of stay (days): 21 Anticipated D/C Destination: Home with Outpt Therapy Was Preadmission Assessment Accurate?: Yes
[2023-08-02 14:33] VITALS: BP 119/57; BP 132/56; BP 148/58; PULSE 55; PULSE 59; PULSE 60
[2023-08-02] MEDS: Calcium Carbonate 500 MG Tablet PO (16:05)
[2023-08-02] MEDS: Carbidopa/Levodopa 25/100 Tablet PO (16:05)
[2023-08-02 19:16] VITALS: BP 141/61; PULSE 52; RESP 16; TEMP 36.8; O2SAT 96
[2023-08-02] MEDS: 0.9% Saline Lock 10 ML Syringe IV (20:31)
[2023-08-02 22:00] VITALS: PULSE 52; RESP 16; O2SAT 96
[2023-08-03 05:53] LABS: Hemoglobin 10.4 g/dL (12.0-15.0)
[2023-08-03 06:00] VITALS: BMI 22.3
[2023-08-03] MEDS: Enoxaparin 40 MG/0.4 ML Syringe SC (06:44)
[2023-08-03] MEDS: Carbidopa/Levodopa 25/100 Tablet PO ×2 (06:45→16:32)
[2023-08-03 07:14] VITALS: BP 136/68; PULSE 67; RESP 15; TEMP 36.8; O2SAT 96
[2023-08-03] MEDS: Cholecalciferol (Vit D3) 125 MCG CAPSULE (5,000 UNITS) PO (08:03)
[2023-08-03] MEDS: Atenolol 25 MG Tablet PO (08:03)
[2023-08-03] MEDS: Calcium Carbonate 500 MG Tablet PO ×2 (08:03→16:32)
[2023-08-03 08:07] VITALS: O2SAT 94
[2023-08-03 08:42] LABS: Anion Gap 3 (5-15); BUN 10 mg/dL (7-18); BUN/Creat Ratio 15.2 RATIO (10-20); CPK Total, Creatine Kinase 420 U/L (26-192); Calcium,Total 8.7 mg/dL (8.5-10.1); Chloride 103 mmol/L (98-107); Creatinine, Serum 0.66 mg/dL (0.55-1.02); EST Glomerular Filtration Rate 90 mL/min (>60); Est Glom Filt Rate - Afr Amer 109 mL/min (>60); Estimated Creatinine Clearance 46.36 ml/min; Glucose 97 mg/dL (74-106); Magnesium 2.1 mg/dL (1.6-2.6); Phosphorus 2.4 mg/dL (2.5-4.9); Potassium 4.3 mmol/L (3.5-5.1); Sodium Level 135 mmol/L (136-145)
--- NOTE | 2023-08-03 12:07 | PCM.PROGNOTE ---
Subjective Subjective Afebrile VSS-systolic blood pressure is mildly elevated and ranges from 132-143. Diastolics are always within normal limits. Heart rate since admission to rehab has ranged from 52-76. Orthostatic vital signs were negative yesterday. Maintaining appropriate oxygen saturation on to 96% Oral intake - FOOD good FLUIDS Poor Discussed with nursing - no problems that need addressed Reviewed the THERAPY notes Medication list reviewed. All lab drawn this morning was personally reviewed. Hemoglobin is 10.4, down from 14.8 at admission. Sodium remains mildly decreased at 135 but the potassium is now normal at 4.3. The BUN is down to 10 with a creatinine of 0.66. Phosphorus is mildly decreased at 2.4 and the magnesium is normal at 2.1. Total CPK is 428 down from 2800 at admission to the hospital. She denies cephalgia, lightheadedness, vertigo, chest pain, cough, shortness of breath, nausea/vomiting/abdominal pain, dysuria and calf pain. She had some soft stool last night and refused her stool softeners. Better hydrated today and MM are not as dry. She tells me that she drank 2 full water containers yesterday( approximately 1600- 1800 cc). Objective Data Objective Data Vital Signs: Vital Signs Temp Pulse Resp BP Pulse Ox O2 Del Method 98.3 F 67 15 136/68 H 94 Room Air 08/03/23 07:14 08/03/23 07:14 08/03/23 07:14 08/03/23 07:14 08/03/23 08:07 08/03/23 08:07 Oxygen Delivery Method Room Air Weight: 142 lb 10.225 oz Body Mass Index (BMI) 22.3 Intake & Output: Intake and Output for Last 24 Hours 08/01/23 08/02/23 08/03/23 23:59 23:59 23:59 Intake Total 600 / 600 360 / 360 370 / 370 Output Total 500 / 700 1600 / 1600 530 / 530 Balance 100 / -100 -1240 / -1240 -160 / -160 Lab / Micro Data 08/03/23 05:38 08/03/23 05:38 Labs: Laboratory Results - last 24 hr 08/03/23 05:38: Hgb 10.4 L, Hct 32.0 L, Sodium 135 L, Potassium 4.3, Chloride 103, Carbon Dioxide 29.0, Anion Gap 3 L, BUN 10, Creatinine 0.66, Estim Creat Clear Calc 46.36, Est GFR (MDRD) Af Amer 109, Est GFR (MDRD) Non-Af 90, BUN/Creatinine Ratio 15.2, Glucose 97, Calcium 8.7, Phosphorus 2.4 L, Magnesium 2.1, Total Creatine Kinase 420 H Physical Exam Const alert and oriented x3 General Appearance: cooperative HEENT HEENT Narrative: MM are more moist today. Resp normal respiratory effort and clear to auscultation bilaterally Effort and Inspection: Negative for tachypneic Cardio regular rate, regular rhythm and no gallops Cardio Narrative: No change in the systolic ejection murmur at the second right intercostal space. GI normal to inspection, nondistended, normoactive bowel sounds, soft to palpation and non-tender GI Narrative: No guarding with palpation Extremity no calf tenderness General Extremity: Negative for edema Skin Rashes: no rashes Neuro Neuro Narrative: Started on Sinemet yesterday and she has more facial expression today. No adverse SE. NO resting tremor. Psych affect normal Psych Narrative: Making good eye contact. She is very personable and pleasant. Appearance: appropriate Activity / Motor Behavior: Negative for restless Assessment & Plan Assessment/Plan (1) Debility: (2) Rhabdomyolysis: QUALIFIERS: Rhabdomyolysis type: traumatic Encounter type: subsequent encounter Qualified Code(s): T79.6XXD - Traumatic ischemia of muscle, subsequent encounter (3) Acute dehydration: PLAN: doing much better. The BUN/CREAT ratio is now < 20. (4) Hyponatremia: PLAN: very mild....sodium is stable at 135. (5) Gait instability: (6) Bradykinesia: (7) Parkinson's disease: QUALIFIERS: Dyskinesia presence: without dyskinesia Fluctuating manifestations: unspecified whether manifestations fluctuate Qualified Code(s): G20.A1 - Parkinson's disease without dyskinesia, without mention of fluctuations PLAN: Plan 1. COntinue therapy 2. Continue Sinemet 25/100 BID. tolerating well but, she has only had 2 doses. 3. Educated her about PD and meds again today. Answered all her questions. We discussed the SE of Sinemet. Charges/Coding Visit Charges Inpatient E&M: 02207 Subs Hosp L1
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
[2023-08-03] MEDS: Pravastatin 20 MG Tablet PO (21:52)
[2023-08-03 22:00] VITALS: BP 155/56; PULSE 62; RESP 16; TEMP 36.8; O2SAT 98
[2023-08-04] MEDS: Enoxaparin 40 MG/0.4 ML Syringe SC (05:43)
[2023-08-04 07:03] VITALS: O2SAT 97
[2023-08-04] MEDS: Carbidopa/Levodopa 25/100 Tablet PO ×2 (07:05→17:05)
[2023-08-04] MEDS: Atenolol 25 MG Tablet PO (08:01)
[2023-08-04] MEDS: Cholecalciferol (Vit D3) 125 MCG CAPSULE (5,000 UNITS) PO (08:01)
[2023-08-04] MEDS: Calcium Carbonate 500 MG Tablet PO ×2 (08:01→17:05)
--- NOTE | 2023-08-04 08:57 | PCM.PROGNOTE ---
Subjective Subjective Fabiana was seen on team rounds today. Afebrile VSS - systolic remains mildly elevated and has ranged from 132-155. Diastolics are always within goal. Maintaining appropriate oxygen saturation on RA Oral intake - FOOD good FLUIDS very good Discussed with nursing - Was up to void several times last night (very good fluid intake yesterday). Appetite fell off a bit the past 2 meals. Reviewed the THERAPY notes Medication list reviewed. Fabiana denies lightheadedness, vertigo, CP, SOB at rest, SOB with exertion, cough, nausea, vomiting, abd pain, diarrhea, constipation, dysuria, calf pain and ankle swelling. She feels she is making progress with therapy. Sleeping well at night. Objective Data Objective Data Vital Signs: Vital Signs Temp Pulse Resp BP Pulse Ox O2 Del Method 98.2 F 62 16 155/56 H 97 Room Air 08/03/23 22:00 08/03/23 22:00 08/03/23 22:00 08/03/23 22:00 08/04/23 07:03 08/04/23 07:03 Oxygen Delivery Method Room Air Weight: 142 lb 10.225 oz Body Mass Index (BMI) 22.3 Intake & Output: Intake and Output for Last 24 Hours 08/02/23 08/03/23 08/04/23 23:59 23:59 23:59 Intake Total 360 / 360 20090 680 / 680 Output Total 1600 / 1600 880 / 1880 1300 / 1300 Balance -1240 / -1240 1130 / 630 -620 / -620 Lab / Micro Data 08/03/23 05:38 08/03/23 05:38 Physical Exam Const alert and oriented x3 General Appearance: cooperative Resp normal respiratory effort and clear to auscultation bilaterally Effort and Inspection: Negative for tachypneic Cardio regular rate, regular rhythm and no gallops GI normal to inspection, nondistended, normoactive bowel sounds, soft to palpation and non-tender Extremity no calf tenderness Extremity Narrative: Trace ankle edema which is controlled with OC hose. Skin General Skin Exam: no breakdown Rashes: no rashes Neuro Neuro Narrative: No dyskinesia. Assessment & Plan Assessment/Plan (1) Debility: (2) Rhabdomyolysis: QUALIFIERS: Rhabdomyolysis type: traumatic Encounter type: subsequent encounter Qualified Code(s): T79.6XXD - Traumatic ischemia of muscle, subsequent encounter (3) Acute dehydration: (4) Hyponatremia: (5) Gait instability: (6) Bradykinesia: (7) Parkinson's disease: QUALIFIERS: Dyskinesia presence: without dyskinesia Fluctuating manifestations: unspecified whether manifestations fluctuate Qualified Code(s): G20.A1 - Parkinson's disease without dyskinesia, without mention of fluctuations PLAN: Plan 1. Continue therapy 2. No change to the drug regimen today. 3. Continue to monitor BP.....may need to adjust the antihypertensive regimen to better control the BP's in the afternoon. Charges/Coding Visit Charges Inpatient E&M: 16640 Subs Hosp L1
[2023-08-04 10:00] VITALS: BP 141/58; PULSE 60; RESP 17; TEMP 37; O2SAT 95
--- NOTE | 2023-08-04 13:18 | CASEMGMT ---
Social Work IDT met with patient for Team meeting. Discussed patient's progress in PT/OT/ST/SN. Educated to Medicare approval of 11 days with DC /. Pt's goal is to return home and IDT in agreement with plan. Will determine DC needs close to date. SW will continue to follow and ReTeam next week. Samantha Wall, IT OPERATIONS MANAGER CUMULATIVE EFFECTS ANALYST
[2023-08-04 20:06] VITALS: BP 156/54; PULSE 64; RESP 16; TEMP 37; O2SAT 94
[2023-08-04] MEDS: Pravastatin 20 MG Tablet PO (22:40)
[2023-08-04] MEDS: Senna/Docusate Sodium 1 Tablet 2 TABLET PO (22:40)
[2023-08-05] MEDS: Enoxaparin 40 MG/0.4 ML Syringe SC (05:41)
[2023-08-05] MEDS: Carbidopa/Levodopa 25/100 Tablet PO ×2 (05:41→16:44)
[2023-08-05 07:28] VITALS: BP 159/61; PULSE 59; RESP 18; TEMP 36.7; O2SAT 97
[2023-08-05] MEDS: Atenolol 25 MG Tablet PO (08:04)
[2023-08-05] MEDS: Calcium Carbonate 500 MG Tablet PO ×2 (08:04→16:44)
[2023-08-05] MEDS: Cholecalciferol (Vit D3) 125 MCG CAPSULE (5,000 UNITS) PO (08:04)
[2023-08-05] MEDS: Senna/Docusate Sodium 1 Tablet 2 TABLET PO (08:05)
[2023-08-05 19:30] VITALS: BP 172/72; PULSE 58; RESP 16; TEMP 37; O2SAT 97
[2023-08-05 20:40] VITALS: BP 151/63; PULSE 57; RESP 16; O2SAT 97
[2023-08-05] MEDS: Pravastatin 20 MG Tablet PO (20:42)
[2023-08-06] MEDS: Enoxaparin 40 MG/0.4 ML Syringe SC (05:31)
[2023-08-06] MEDS: Carbidopa/Levodopa 25/100 Tablet PO ×2 (06:27→16:06)
[2023-08-06] MEDS: Cholecalciferol (Vit D3) 125 MCG CAPSULE (5,000 UNITS) PO (07:40)
[2023-08-06] MEDS: Calcium Carbonate 500 MG Tablet PO ×2 (07:40→16:06)
[2023-08-06] MEDS: Atenolol 25 MG Tablet PO (07:41)
[2023-08-06 10:00] VITALS: BP 148/77; PULSE 58; RESP 16; TEMP 36.3; O2SAT 94
[2023-08-06 19:00] VITALS: BP 186/77; PULSE 64
[2023-08-06 21:00] VITALS: BP 161/62; BP 178/74; PULSE 60; RESP 16; TEMP 37.1; O2SAT 96
[2023-08-06 21:05] VITALS: PULSE 60; RESP 16; O2SAT 96
[2023-08-06] MEDS: Pravastatin 20 MG Tablet PO (21:17)
[2023-08-07] MEDS: 0.9% Saline Lock 10 ML Syringe IV (03:51)
--- NOTE | 2023-08-07 03:53 | NURSING ---
Reviewed and agree with Jarrett TERAN, documentation and assessment charting.
[2023-08-07] MEDS: Enoxaparin 40 MG/0.4 ML Syringe SC (04:55)
[2023-08-07] MEDS: Carbidopa/Levodopa 25/100 Tablet PO ×2 (06:20→15:55)
[2023-08-07 07:24] VITALS: BP 147/51; PULSE 61; RESP 16; TEMP 36.6; O2SAT 94
[2023-08-07] MEDS: Calcium Carbonate 500 MG Tablet PO ×2 (07:56→17:20)
--- NOTE | 2023-08-07 09:29 | PCM.PROGNOTE ---
Subjective Subjective Afebrile VSS-diastolics are always within goal. Systolic blood pressures are always elevated. Heart rate is in the low 60s and has been in the high 50s. Maintaining appropriate oxygen saturation on RA Oral intake - FOOD good FLUIDS adequate Discussed with nursing - no problems that need addressed Reviewed the THERAPY notes Medication list reviewed. Her only antihypertensive is metoprolol 25 mg daily. Fabiana denies headache, lightheadedness, vertigo, cough, shortness of breath, nausea/vomiting/diarrhea/constipation, calf tenderness and dysuria. She states that the musculoskeletal chest pain is improving and so is the pain in her legs. She feels that she is improving in therapy. She is sleeping well at night. Objective Data Objective Data Vital Signs: Vital Signs Temp Pulse Resp BP Pulse Ox O2 Del Method 97.9 F 61 16 147/51 H 94 Room Air 08/07/23 07:24 08/07/23 07:24 08/07/23 07:24 08/07/23 07:24 08/07/23 07:24 08/07/23 07:24 Oxygen Delivery Method Room Air Weight: 142 lb 10.225 oz Body Mass Index (BMI) 22.3 Intake & Output: Intake and Output for Last 24 Hours 08/05/23 08/06/23 08/07/23 23:59 23:59 23:59 Intake Total 1320 / 1320 1190 / 1190 360 / 360 Output Total 1050 / 1050 800 / 800 Balance 270 / 270 390 / 390 360 / 360 Lab / Micro Data 08/03/23 05:38 08/03/23 05:38 Micro: Microbiology 08/04/23 12:05 Stool Stool Occult Blood (RUBI) - Final Physical Exam Const alert, oriented x3 and no apparent distress Constitutional Narrative: Sitting in the recliner with her legs dependent. General Appearance: cooperative Orientation / Consciousness: Negative for confused Resp normal respiratory effort and clear to auscultation bilaterally Effort and Inspection: Negative for tachypneic Cardio regular rate, regular rhythm and no gallops Cardio Narrative: Rare premature beat. GI normal to inspection, nondistended, normoactive bowel sounds, soft to palpation and non-tender GI Narrative: Good bowel function and no guarding with palpation. Extremity no calf tenderness Extremity Narrative: She has edema of the ankles and this has been chronic. She wears compression stockings at home. She sits with her legs dependent most of the time. Her shoes are very tight over the dorsum of the feet and I think this also contributes to the edema of the ankles. General Extremity: edema Skin General Skin Exam: no breakdown Rashes: no rashes Neuro Neuro Narrative: Gait is more fluid and she is ambulating with the WW with no LOB. No muscle rigidity. No resting tremor. No dyskinesia. Bradykinesia has improved. Psych affect normal Assessment & Plan Assessment/Plan (1) Debility: (2) Rhabdomyolysis: QUALIFIERS: Rhabdomyolysis type: traumatic Encounter type: subsequent encounter Qualified Code(s): T79.6XXD - Traumatic ischemia of muscle, subsequent encounter (3) Acute dehydration: (4) Hyponatremia: (5) Gait instability: (6) Bradykinesia: (7) Parkinson's disease: QUALIFIERS: Dyskinesia presence: without dyskinesia Fluctuating manifestations: unspecified whether manifestations fluctuate Qualified Code(s): G20.A1 - Parkinson's disease without dyskinesia, without mention of fluctuations (8) Hypertension: QUALIFIERS: Hypertension type: essential hypertension Qualified Code(s): I10 - Essential (primary) hypertension PLAN: Plan 1. Continue therapy 2. Add lisinopril 5 mg daily in the a.m. to her current antihypertensive regimen. Charges/Coding Visit Charges Inpatient E&M: 51582 [facility] Hosp L1
[2023-08-07] MEDS: Atenolol 25 MG Tablet PO (10:00)
[2023-08-07] MEDS: Cholecalciferol (Vit D3) 125 MCG CAPSULE (5,000 UNITS) PO (10:01)
[2023-08-07] MEDS: Lisinopril 5 MG Tablet PO (12:18)
[2023-08-07] MEDS: Senna/Docusate Sodium 1 Tablet 2 TABLET PO (21:29)
[2023-08-07] MEDS: Pravastatin 20 MG Tablet PO (21:29)
[2023-08-07 22:00] VITALS: BP 147/60; PULSE 58; RESP 16; TEMP 37.1; O2SAT 98
[2023-08-08] MEDS: Enoxaparin 40 MG/0.4 ML Syringe SC (05:09)
[2023-08-08] MEDS: Carbidopa/Levodopa 25/100 Tablet PO ×2 (06:45→17:00)
[2023-08-08 07:14] VITALS: BP 127/56; PULSE 62; RESP 16; TEMP 37.2; O2SAT 94
[2023-08-08] MEDS: Atenolol 25 MG Tablet PO (07:34)
[2023-08-08] MEDS: Senna/Docusate Sodium 1 Tablet 2 TABLET PO (07:34)
[2023-08-08] MEDS: Calcium Carbonate 500 MG Tablet PO ×2 (07:34→17:51)
[2023-08-08] MEDS: Cholecalciferol (Vit D3) 125 MCG CAPSULE (5,000 UNITS) PO (07:35)
[2023-08-08] MEDS: Lisinopril 5 MG Tablet PO (07:35)
[2023-08-08] MEDS: 0.9% Saline Lock 10 ML Syringe IV (17:01)
[2023-08-08 20:00] VITALS: BP 157/68; PULSE 64; RESP 18; TEMP 36.7; O2SAT 95
[2023-08-08] MEDS: Pravastatin 20 MG Tablet PO (22:10)
[2023-08-09] MEDS: Enoxaparin 40 MG/0.4 ML Syringe SC (05:25)
[2023-08-09] MEDS: Carbidopa/Levodopa 25/100 Tablet PO ×2 (05:25→16:28)
[2023-08-09 07:21] VITALS: BP 147/59; PULSE 60; RESP 16; TEMP 36.2; O2SAT 95
[2023-08-09] MEDS: Lisinopril 5 MG Tablet PO (08:06)
[2023-08-09] MEDS: Atenolol 25 MG Tablet PO (08:06)
[2023-08-09] MEDS: Calcium Carbonate 500 MG Tablet PO ×2 (08:07→16:27)
[2023-08-09] MEDS: Cholecalciferol (Vit D3) 125 MCG CAPSULE (5,000 UNITS) PO (08:07)
--- NOTE | 2023-08-09 12:05 | PCM.PROGNOTE ---
Subjective Subjective Afebrile VSS-systolics are still mildly elevated but doing better than they were prior to the addition of lisinopril to her drug regimen. She has had 2 doses of lisinopril so far. Will continue lisinopril and continue to monitor blood pressures. Maintaining appropriate oxygen saturation on RA Oral intake - FOOD good FLUIDS fair Discussed with nursing - no problems that need addressed Reviewed the THERAPY notes Medication list reviewed. Fabiana denies lightheadedness, cephalgia, chest pain, shortness of breath, cough, nausea/vomiting/abdominal pain, dysuria and calf tenderness. She is sleeping well at night and has a good appetite. Objective Data Objective Data Vital Signs: Vital Signs Temp Pulse Resp BP Pulse Ox O2 Del Method 97.1 F L 60 16 147/59 H 95 Room Air 08/09/23 07:21 08/09/23 07:21 08/09/23 07:21 08/09/23 07:21 08/09/23 07:21 08/09/23 07:21 Oxygen Delivery Method Room Air Weight: 142 lb 10.225 oz Body Mass Index (BMI) 22.3 Intake & Output: Intake and Output for Last 24 Hours 08/07/23 08/08/23 08/09/23 23:59 23:59 23:59 Intake Total 1080 / 1080 1030 / 1030 Output Total 500 / 500 200 / 200 Balance 580 / 580 830 / 830 Lab / Micro Data 08/03/23 05:38 08/03/23 05:38 Micro: Microbiology 08/04/23 12:05 Stool Stool Occult Blood (RUBI) - Final Physical Exam Const alert, oriented x3 and no apparent distress General Appearance: cooperative Orientation / Consciousness: Negative for confused Resp normal respiratory effort and clear to auscultation bilaterally Effort and Inspection: Negative for tachypneic Cardio regular rate, regular rhythm and no gallops GI normal to inspection, nondistended, normoactive bowel sounds, soft to palpation and non-tender GI Narrative: Good bowel function and no guarding with palpation. Extremity no calf tenderness General Extremity: edema Skin General Skin Exam: no breakdown Rashes: no rashes Psych affect normal Assessment & Plan Assessment/Plan (1) Debility: (2) Rhabdomyolysis: QUALIFIERS: Rhabdomyolysis type: traumatic Encounter type: subsequent encounter Qualified Code(s): T79.6XXD - Traumatic ischemia of muscle, subsequent encounter (3) Hyponatremia: (4) Gait instability: (5) Bradykinesia: (6) Parkinson's disease: QUALIFIERS: Dyskinesia presence: without dyskinesia Fluctuating manifestations: unspecified whether manifestations fluctuate Qualified Code(s): G20.A1 - Parkinson's disease without dyskinesia, without mention of fluctuations (7) Hypertension: QUALIFIERS: Hypertension type: essential hypertension Qualified Code(s): I10 - Essential (primary) hypertension PLAN: Plan 1. Continue therapy 2. CBC, phosphorus and BMP in the a.m. Charges/Coding Visit Charges Inpatient E&M: 46228 Subs Hosp L1
--- NOTE | 2023-08-09 12:31 | SP.MBSS_ITS ---
Modified Barium Swallow Patient Information Study Date: 08/09/23 Study Time: 09:00 Direct Billable Minutes: 120 Total Minutes procedure & reportin Diagnosis: G20.A1 - Parkinson's disease Referring Physician: Idalia Thompson Reason for Referral: Objectively assess swallow function, assess risk for aspiration, and determine recommendations for least restrictive diet textures and compensatory strategies to improve safety of swallow. Medical History: Fabiana Varma is a 88 F with a PMH of Parkinson?s disease, HTN, HLD, tobacco dependence in remission, OA, colon polyps and osteoporosis (she is taking alendronate) who presented to the ED at [facility] on 07/31/2023 after a ground-level mechanical fall at home in her kitchen. Patient admits to striking head but denies LOC. CT head was negative for any acute pathology and other imaging showed no fractures or dislocations. She was transferred to the acute inpt rehab unit at [facility] on 08/01/23 for 3 hours of therapy daily to restore function/independence at or near her level prior to the fall. Patient is currently on caseload for cognitive-linguistic therapy prior to discharge home alone. However, during speech therapy session, the patient was showing s/sx of diet intolerance. Given hx of Parkinson?s disease ? recommended instrumental swallow study to determine the safest PO diet.? Current Diet Ordered: Regular Textures; Thin Liquids Respiratory Status: Oxygenating on Room Air Penetration-Aspiration Scale Penetration-Aspiration Scale: OBJECTIVE ASSESSMENT OF SWALLOW FUNCTION (QUANTITATIVE ? PER TRIAL): PENETRATION / ASPIRATION SCALE (CORREA): 1 = does not enter airway 2 = enters airway/above vocal folds/ejected 3 = enters airway/above vocal folds/not ejected 4 = enters airway/contacts vocal folds/ejected 5 = enters airway/contacts vocal folds/not ejected 6 = enters airway/below vocal folds/ejected 7 = enters airway/below vocal folds/not ejected despite effort 8 = enters airway/below vocal folds/no effort VIDEOFLOROSCOPIC SCALE SCORE (CORREA): Grade I = aspiration of material that has penetrated into the laryngeal vestibule, intact cough reflex Grade II = aspiration < 10 % of the bolus, intact cough reflex Grade III = aspiration of < 10 % of the bolus, reduced cough reflex or aspiration of > 10 % of the bolus, intact cough reflex Grade IV = aspiration of > 10 % of the bolus, reduced cough reflex Penetration-Aspiration Scale Score Thin Liquid via teaspoon: Result: 1= does not enter airway Thin Liquid via teaspoon Trial 2: Result: 1= does not enter airway Thin Liquid via small single sip: cup: Result: 1= does not enter airway Thin Liquid via sequential sips: cup: Result: 1= does not enter airway Thin Liquid via single sip: straw: Result: 1= does not enter airway Thin Liquid via sequential sips:straw: Result: 1= does not enter airway [place] Thick Liquid via small single sip: cup: Result: 1= does not enter airway Honey Thick Liquid via small single sip: cup: Result: 1= does not enter airway Pudding: Result: 1= does not enter airway Cookie: Result: 1= does not enter airway Barium Tablet: Result: 1= does not enter airway Oral Phase Labial Seal: No Labial Escape Tongue Control During Bolus Hold: Posterior escape of less than half of bolus Bolus Preparation/Mastication: Timely and efficient chewing and mashing Bolus Transport/Lingual Motion: Brisk tongue motion Oral Residue: Trace residue lining oral structures Pharyngeal Phase Initiation of Pharyngeal Swallow: Bolus head in valleculae Soft Palate Elevation: No bolus between soft palate and pharyngeal wall Laryngeal Elevation: Comp. Superior move thyroid cart w/comp. apprx arytenoid cart-epig pet Anterior Hyoid Excursion: Partial anterior movement Epiglottic Movement: Complete inversion Laryngeal Vestibule Closure at Height of Swallow: Complete; no air/contrast in laryngeal vestibule Pharyngeal Stripping Wave: Present - complete Pharyngoesophageal Segment Opening: Complete distension and complete duration; no obstruction of flow Pharyngeal Residue: Trace residue within or on pharyngeal structures Esophageal Phase Esophageal Clearance: Esophageal retention w/ retrograde flow below pharyngoesophageal seg. Diagnosis/Impression Diagnosis: presbyphagia Impression: Pt. presents w/ presbyphagia. Oral phase - Premature spillage w/ sequential sips to the vallecula. - Minimal oral residue seen after the swallow spilling into the vallecula. Pharyngeal phase - Mildly decreased anterior hyoid movement, however adequate airway closure w/ single and sequential sips w/ cup and straw. - No penetration or aspiration observed during the study. Esophageal phase - Esophageal retention w/ retrograde flow observed in the mid esophagus. - Retention significantly decreased w/ use of liquid wash. Recommendations Diet: Regular Textures and Thin Liquids Compensatory Strategies: Small Bites, Small Sips, Multiple Swallows, Alternate bites/solids and sips/liquids, Sitting upright and Remain sitting upright for 30 minutes after PO intake Recommend Repeat Modified Barium Swallow: No Need for Skilled Speech Therapy Services: Yes Education Completed: 1. Described result of evaluation. and 2. Pt understands evaluation & agrees with goals and treatment plan. Status Active ST Patient: Active Contact Information [facility] Speech Therapy:: Teagan Aj M.A. Speech-Language Pathologist [facility] [address] [place] [address] [email or web address] [phone]
[2023-08-09 17:18] VITALS: BP 159/63; PULSE 68; RESP 16; TEMP 36.4; O2SAT 97
[2023-08-09 20:38] VITALS: BP 150/64; PULSE 63; RESP 16; TEMP 36.2; O2SAT 97
[2023-08-09] MEDS: Pravastatin 20 MG Tablet PO (20:43)
[2023-08-09] MEDS: 0.9% Saline Lock 10 ML Syringe IV (20:45)
[2023-08-10] MEDS: Enoxaparin 40 MG/0.4 ML Syringe SC (05:49)
[2023-08-10 05:56] LABS: Hematocrit 34.6 % (37-47); Hemoglobin 11.5 g/dL (12.0-15.0); Mean Corp Hgb Conc 33.2 g/dL (32-36); Mean Corpuscular Hgb 29.5 pg (27.0-32.0); Mean Corpuscular Volume 88.7 fL (81-99); Mean Platelet Vol. 9.1 fl (6.2-12.0); Platelet Count 305 K/mm3 (150-450); RBC Distribution Width CV 13.9 % (11.6-14.6); RBC Distribution Width SD 45.1 fl (35.1-43.9); White Blood Count 6.5 K/mm3 (4.4-11.0)
[2023-08-10 05:57] VITALS: BP 133/54; PULSE 59; RESP 17; TEMP 36.9; O2SAT 96
[2023-08-10 06:22] LABS: Anion Gap 4 (5-15); BUN 11 mg/dL (7-18); BUN/Creat Ratio 14.8 RATIO (10-20); Calcium,Total 8.9 mg/dL (8.5-10.1); Chloride 99 mmol/L (98-107); Creatinine, Serum 0.74 mg/dL (0.55-1.02); EST Glomerular Filtration Rate 78 mL/min (>60); Est Glom Filt Rate - Afr Amer 94 mL/min (>60); Estimated Creatinine Clearance 46.36 ml/min; Glucose 94 mg/dL (74-106); Phosphorus 3.5 mg/dL (2.5-4.9); Potassium 4.5 mmol/L (3.5-5.1); Sodium Level 132 mmol/L (136-145)
[2023-08-10] MEDS: Carbidopa/Levodopa 25/100 Tablet PO ×2 (06:26→16:54)
[2023-08-10] MEDS: Senna/Docusate Sodium 1 Tablet 2 TABLET PO ×2 (07:56→21:03)
[2023-08-10] MEDS: Calcium Carbonate 500 MG Tablet PO ×2 (07:56→16:55)
[2023-08-10] MEDS: Cholecalciferol (Vit D3) 125 MCG CAPSULE (5,000 UNITS) PO (07:56)
[2023-08-10] MEDS: Atenolol 25 MG Tablet PO (07:56)
[2023-08-10] MEDS: Lisinopril 5 MG Tablet PO (07:56)
[2023-08-10 08:51] VITALS: BMI 22.1
[2023-08-10 12:00] VITALS: BP 120/58; PULSE 57
[2023-08-10 17:34] VITALS: BP 156/64; PULSE 96; RESP 16; TEMP 36.6; O2SAT 96
[2023-08-10 21:00] VITALS: BP 146/61; PULSE 60; RESP 16; TEMP 36.8; O2SAT 95
[2023-08-10] MEDS: Pravastatin 20 MG Tablet PO (21:03)
[2023-08-11] MEDS: Enoxaparin 40 MG/0.4 ML Syringe SC (05:28)
[2023-08-11 06:00] VITALS: BP 123/54; PULSE 59; RESP 17; TEMP 36.7; O2SAT 96
[2023-08-11] MEDS: Carbidopa/Levodopa 25/100 Tablet PO ×2 (06:33→16:30)
[2023-08-11] MEDS: Cholecalciferol (Vit D3) 125 MCG CAPSULE (5,000 UNITS) PO (08:27)
[2023-08-11] MEDS: Atenolol 25 MG Tablet PO (08:27)
[2023-08-11] MEDS: Calcium Carbonate 500 MG Tablet PO ×2 (08:27→16:30)
[2023-08-11] MEDS: Lisinopril 5 MG Tablet PO (08:27)
[2023-08-11 12:00] VITALS: BP 118/60; PULSE 60
--- NOTE | 2023-08-11 12:46 | CASEMGMT ---
Social Work SW met with patient for IDT for care plan meeting. IDT discussed patient's improvement with PT/OT/ST. Patient is mod I to move around in the room and has ambulated 495ft with walker and 350ft with straight cane. SW notified patient that Medicare insurance cut date is 08/12/2023. Patient is aware of discharge from [facility]. Patient has improved to discharge home with home health. SW inquired about the patient's history utilizing home health care services. Patient informed SW that she previously utilized home health care services through the hospital. The patient informed SW that she would like to utilize [facility]. Patient is agreeable to home health care service through [facility] for PT/OT/ST. Patient informed SW that her daughter found the wheels for her walker. Patient does not require any DME at discharge. Patient's daughter will provide transportation to home at discharge. Physician would like patient to go to Driving Rehab. SW provide patient with Driving Rehab resources. SW will complete script for D[facility]hab and provide referral. SW contacted [facility] to confirm acceptance. VARSHA Sharma
--- NOTE | 2023-08-11 13:32 | CASEMGMT ---
Social Work Discharge Plan - patient will return home independently 08/12/23. Pt states a daughter will be staying with her for a couple days at discharge. Referral to [facility] for home PT/OT/ST made 08/11/23 and will begin services on 08/15/23. Sending referral to [facility] for Orthotic Finish Grinding Technician's Evaluation with ADL's. Pt's family is working on setting pt up with a Medic Alert and family also purchased a Wheel Kit to put wheels on pt. walker. Patient's daughter will be transporting patient home. This worker met with patient and completed discharge IRFPAI BIMS and PHQ2 0/2. This worker also reviewed Message from Medicare Letter which pt. signed. Tiffanie BARON
--- NOTE | 2023-08-11 14:14 | PN_ITS ---
Subjective Subjective Fabiana was seen on team rounds today. No family was available to participate. Afebrile VSS-blood pressure this morning is 123/54. Heart rate is 59. It does increase with exertion. Maintaining appropriate oxygen saturation on RA Oral intake - FOOD good FLUIDS good Discussed with nursing - no problems that need addressed Reviewed the THERAPY notes Medication list reviewed. Fabiana denies headache, dizziness, vertigo, cough, sore throat, shortness of breath, nausea/vomiting/abdominal pain, dysuria, constipation/diarrhea and calf pain. She has non complaints today. Objective Data Objective Data Vital Signs: Vital Signs Temp Pulse Resp BP Pulse Ox O2 Del Method 98.1 F 59 L 17 123/54 H 96 Room Air 08/11/23 06:00 08/11/23 06:00 08/11/23 06:00 08/11/23 06:00 08/11/23 06:00 08/11/23 06:00 Oxygen Delivery Method Room Air Weight: 141 lb 8.588 oz Body Mass Index (BMI) 22.1 Intake & Output: Intake and Output for Last 24 Hours 08/09/23 08/10/23 08/11/23 23:59 23:59 23:59 Intake Total 1400 / 1400 780 / 1020 1200 / 1200 Output Total 850 / 850 1000 / 1400 1000 / 1000 Balance 550 / 550 -220 / -380 200 / 200 Lab / Micro Data 08/10/23 05:41 08/10/23 05:41 Micro: Microbiology 08/04/23 12:05 Stool Stool Occult Blood (RUBI) - Final Physical Exam Const alert, oriented x3 and no apparent distress General Appearance: cooperative HEENT moist oral mucous membranes Eyes PERRL and EOMs intact bilaterally Neck supple Resp normal respiratory effort, normal air movement and clear to auscultation bilaterally Resp Narrative: No conversational dyspnea Effort and Inspection: Negative for tachypneic Cardio regular rate, regular rhythm and no gallops GI normal to inspection, nondistended, normoactive bowel sounds, soft to palpation and non-tender Extremity no calf tenderness General Extremity: edema bilateral (Of the ankles and distal tibia areas) Skin General Skin Exam: no breakdown Rashes: no rashes Wounds: Negative for wounds noted Neuro CN's II-XII intact bilaterally Neuro Narrative: Much better facial expression since she has been on Sinemet. Bradykinesia has improved. She is ambulating with a more fluid gait and no loss of balance using a front wheel walker. Speech: speech normal Psych cooperative and affect normal Psych Narrative: calm and making good eye contact when we are conversing. Appearance: appropriate Assessment & Plan Assessment/Plan (1) Debility: (2) Rhabdomyolysis: QUALIFIERS: Rhabdomyolysis type: traumatic Encounter type: subsequent encounter Qualified Code(s): T79.6XXD - Traumatic ischemia of muscle, subsequent encounter (3) Hyponatremia: (4) Gait instability: (5) Bradykinesia: (6) Parkinson's disease: QUALIFIERS: Dyskinesia presence: without dyskinesia Fluctuating manifestations: unspecified whether manifestations fluctuate Qualified Code(s): G20.A1 - Parkinson's disease without dyskinesia, without mention of fluctuations (7) Hypertension: QUALIFIERS: Hypertension type: essential hypertension Qualified Code(s): I10 - Essential (primary) hypertension PLAN: Plan 1. Planning discharge home tomorrow with home health care 2. Reinforced with patient that she is not to drive until she attends the drivers evaluation program in [place] at [facility]. Information was given to her by the criminal justice social worker and a referral will be made. Will also update the patient's family that she is not to drive. 3. We discussed with her that I prefer she sees a neurologist sooner than November because of the recently diagnosed Parkinson's disease. She is agreeable to following up with Dr. Daigle and an appointment has been made for her for next week. Will discuss with her family. 4. Speech therapy advises that someone assist Fabiana with her finances as she is making errors in math. She is able to set up her own pillboxes accurately. 5. Her daughter was able to obtain a we will set to put on her walker at home. I spoke with Daughter Sandra and explained that Fabiana should not drive until she is able to pass the driving test at the school in [place]. Fabiana was given the information to contact them and a referral was made by the . I also told Sandra I think she needs to follow up with neurology sooner than November. I recommended if they are unable to transport her to Dr. Daigle's office next week for her appt on Tuesday that they call his office to reschedule a time when they could get her to the appt. I will put his office number on the [place] paperwork. She has an appt with Frederick LICONA next week for primary care. Charges/Coding Visit Charges Inpatient E&M: 12697 Subs Hosp L1
--- NOTE | 2023-08-11 14:24 | PCM.DC ---
Discharge Instructions Diet Discharge Diet: - (no added salt/low salt diet) Activity Discharge Activity: Use Walker (Can use a cane in the house but, when out in the community she should be using a FWW. ) Weight Bearing Status: Full weight bearing Keep extremity elevated above heart level: Legs Dressing / Incision Call your doctor if you observe: Fever of 101 or Higher, Shortness of breath, Dizziness, Fainting spells, Chest pain, Increased palpitations (irregular heartbeat), Calf discomfort, Uncontrolled pain and - (STROKE symptoms: facial droop, slurred speech, inability to get words out, weakness on 1 side of the body and not the other, numbness on 1 side of the body and not the other, inability to maintain your balance sitting or standing, vertigo. ) Follow Up Care Please Follow Up With: Naren Mendez, PA Test Results: Test results from this visit will be discussed in further detail at your follow-up appointment, if applicable. Pending Tests Upon Discharge: none Discharge Plan Admission Admit Date/Time: 08/01/23 18:00 Primary Reason for Your Visit: Debility secondary to fall with rhabdomyolysis Attending Provider: Idalia Thompson Primary Care Provider: Naren Mendez Instructions Patient Instructions: Parkinson Common Symptoms, Exercise for Parkinson Disease, Parkinson Disease Mobility Tips, Parkinson Disease- Home Safety, Parkinson Disease Tx Additional Instructions / Restrictions: 1. You have done very well on rehab and we have all enjoyed working with you. You have benefitted from starting medications for Parkinson disease. You have more facial expression, better balance and you are walking with the walker with no loss of balance. I am giving you some information about Parkinson disease. You will need to follow up with a neurologist after leaving rehab to manage the Parkinson disease. I think you should see a neurologist sooner than November. An appt has been made for you to see a neurologist, Dr. Anmol Daigle, next week on 08/16/23 at 11:[address] Daigle's office is located in [place]. His office number is [phone] if your family needs to change the appt to fit their schedule. 2. No driving. 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 The social service worker gave you a handout with the information on how to schedule an appt for evaluation if you are interested in driving again. They evaluate vision, reaction time, thought processes, medications, etc. 3. Use your walker if you are out and about in the community but, for walking around your house it is OK to use the cane. 4. When the home health therapist feel you are ready I suggest you consider out patient physical therapy at [facility]. they have an exercise program that is designed especially for patients with Parkinson disease to keep you as functional as possible for as long as possible. If you do not exercise your ability to walk and swallow and take care of yourself will decline. 5. If you or your family has any questions after you leave rehab please do not hesitate to call me. OFFICE: [phone] CELL: [phone] rehab nurses station: [phone] Discharge Orders/Prescriptions Prescriptions: New acetaminophen 325 mg Tablet 650 mg PO Q6H PRN PRN (Reason: Pain Score 1-10) Qty: 0 0RF calcium carbonate 200 mg calcium (500 mg) Tablet,Chewable 500 mg PO BIDCM Qty: 60 0RF Rx Instructions: take with food lisinopril 5 mg Tablet 5 mg PO DAILY Qty: 30 0RF carbidopa-levodopa 25-100 mg Tablet 1 tab PO BIDAC Qty: 60 0RF cholecalciferol (vitamin D3) 125 mcg (5,000 unit) Capsule 125 mcg PO DAILY Qty: 30 0RF Continued pravastatin 40 MG tablet 20 mg PO DAILY Qty: 30 0RF atenolol 25 MG tablet 25 mg PO DAILY Qty: 30 0RF Discontinued melatonin 3 MG tablet 3 mg PO QHS PRN PRN (Reason: SLEEP) Qty: 30 0RF calcium carbonate-vitamin D3 1 TABLET tablet 2 tab PO BIDCM Referrals / Follow Up: Anmol Daigle-Neurology [Other] - 08/16/23 11:00 am (For Parkinson's Take ID, Insurance Care and Medication List ) Naren Mendez PA [Primary Care Provider] - 08/17/23 1:30 pm Disposition Disposition (needs filled in before D/C Order can be placed): Home Health Service
--- NOTE | 2023-08-11 15:32 | CHAPLAIN ---
Type of Pastoral Visit ___ Initial Visit _x__ Follow-up Visit ___ On-call Visit ___ General Patient Visit ___ Spiritual Assessment ___ Family Conference ___ Bereavement ___ Rapid Response ___ Code Blue ___ Other (describe below) Pastoral Care Referral From _x__ Patient ___ Family ___ Nurse ___ Physician ___ Certified Technician ___ Camp Attendant ___ Other (describe below) Sacrament/Intervention _x__ Active listening ___ Anointing ___ Mu-Ism ___ Bereavement ___ Communion ___ Teresa exploration ___ ___ Life review _x__ Prayer ___ Reconciliation ___ Sacrament of Sick ___ Supportive presence ___ Wedding ___ Other (describe below) Pastoral Comments
--- NOTE | 2023-08-11 17:07 | PCM.DC.SUM ---
Providers Date of Admission: 08/01/23 Date of Discharge: 08/12/23 Primary Care Physician: MONAE Loja none Reason For Visit: DEBILITY due to fall with rhabdomyolysis Diagnosis Discharge Diagnosis (1) Debility: Status: Acute Code(s): R53.81 - Other malaise (2) Fall: Status: Acute Code(s): W19.XXXA - Unspecified fall, initial encounter Qualifiers: Encounter type: subsequent encounter Qualified Code(s): W19.XXXD - Unspecified fall, subsequent encounter Plan: Ground-level fall secondary to loss of balance. No syncope. Was ambulating without a device. (3) Rhabdomyolysis: Status: Resolved Code(s): M62.82 - Rhabdomyolysis Qualifiers: Encounter type: subsequent encounter Rhabdomyolysis type: traumatic Qualified Code(s): T79.6XXD - Traumatic ischemia of muscle, subsequent encounter Plan: Due to lying on the floor for 32 hours prior to the found by her daughter. (4) Hyponatremia: Status: Chronic Code(s): E87.1 - Hypo-osmolality and hyponatremia Plan: Stable. More likely than not secondary to SIADH or reset osmostat. Ranges from 1 32-1 35 recently. (5) Gait instability: Status: Acute Code(s): R26.81 - Unsteadiness on feet (6) Bradykinesia: Status: Acute Code(s): R25.8 - Other abnormal involuntary movements (7) Parkinson's disease: Status: Chronic Code(s): G20.A1 - Parkinson's disease without dyskinesia, without mention of fluctuations Qualifiers: Dyskinesia presence: without dyskinesia Fluctuating manifestations: unspecified whether manifestations fluctuate Qualified Code(s): G20.A1 - Parkinson's disease without dyskinesia, without mention of fluctuations Plan: This is a new diagnosis. She was started on Sinemet while on acute rehab and has had significant improvement in bradykinesia, gait instability and fluidity of ambulation. She also has much more facial expression. (8) Hypertension: Status: Chronic Code(s): I10 - Essential (primary) hypertension Qualifiers: Hypertension type: essential hypertension Qualified Code(s): I10 - Essential (primary) hypertension Plan: Goal is < 130/80. BP's were consistently elevated and she was started on Lisinopril 5 mg daily on 08/07/23 with good improvement. Would recheck a BMP in 1-2 weeks to make sure the sodium remains stable. (9) Hypokalemia: Status: Resolved Code(s): E87.6 - Hypokalemia (10) Cognitive dysfunction: Status: Chronic Code(s): F09 - Unspecified mental disorder due to known physiological condition Plan: Family is aware who memory is impaired. 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 Plan 1. DC home with [facility] for PT/OT and ST 2. Recommend she start attending the exercise program at [facility] for people with Parkinson's disease 3. No driving - Explained to patient and her dtr Sandra. Fabiana was given information on the van cdl driver evaluation program at [facility] should she want to drive again. If she passes that evaluation then she could continue with local/community driving and no highway driving. 4. Needs follow up with neurology for management of Parkinson's disease. 5. New meds faxed to [facility] pharmacy in [place]. 6. Use WW when in the community. OK to use a cane in her house. I spoke with Daughter Sandra and explained that Fabiana should not drive until she is able to pass the driving test at the school in [place]. Fabiana was given the information to contact them and a referral was made by the . I also told Sandra I think she needs to follow up with neurology sooner than November. I recommended if they are unable to transport her to Dr. Daigle's office next week for her appt on Tuesday that they call his office to reschedule a time when they could get her to the appt. I will put his office number on the [facility] paperwork. She has an appt with Frederick LICONA next week for primary care. Medications at Discharge Home Medications acetaminophen 325 mg tablet 650 mg (2 x 325 mg) PO Q6H PRN PRN Pain Score 1-10 #0 tabs 08/11/23 atenolol 25 mg tablet 25 mg PO DAILY heart #30 tabs 08/11/23 calcium carbonate 200 mg calcium (500 mg) chewable tablet 500 mg (2.5 x 200 mg calcium (500 mg)) PO BIDCM #60 tabs 08/11/23 carbidopa 25 mg-levodopa 100 mg tablet 1 tab PO BIDAC #60 tabs 08/11/23 cholecalciferol (vitamin D3) 125 mcg (5,000 unit) capsule 125 mcg PO DAILY #30 caps 08/11/23 lisinopril 5 mg tablet 5 mg PO DAILY #30 tabs 08/11/23 pravastatin 40 mg tablet 20 mg (1/2 x 40 mg) PO DAILY hyperlipidemia #30 tabs 08/11/23 Hospital Course Operations None Procedures Modified Barium Swallow (Diagnosis/Impression Diagnosis: presbyphagia Impression: Pt. presents w/ presbyphagia. Oral phase - Premature spillage w/ sequential sips to the vallecula. - Minimal oral residue seen after the swallow spilling into the vallecula. Pharyngeal phase - Mildly decreased anterior hyoid movement,) Summary of Care Provided Minutes Spent on Discharge: 38 Hospital Course: FABIANA ERAZO, is a 88 F with a PMH of HTN, HLD, tobacco dependence in remission, OA, colon polyps and osteoporosis (she is taking alendronate) who presented to the ED at [facility] on 07/31/2023 after a ground-level mechanical fall at home in her kitchen. Unfortunately she laid in the kitchen for approximately 32 hours before her dtr found her. She was c/o mild R hip pain at presentation to the ED. she admitted to striking her head but, did not think she had lost consciousness. She denies dizziness/lightheadedness at the time of the fall. CT head was negative for any acute pathology and other imaging showed no fractures or dislocations. Significant lab included a sodium of 131 with a chloride of 96. BUN was 20 with a creatinine of 0.98. Bilirubin was mildly increased at 1.4 and the AST was 126 with a normal ALT and alkaline phosphatase. Total CK was elevated at 2883. UA was positive for ketones and protein. There were 0-5 WBCs per high-power field with no bacteria. There were 10-25 hyaline casts consistent with dehydration. She was admitted to the hospitalist service with a diagnosis of rhabdomyolysis. With hydration the CK came down to 1503 within 24H. sodium came up to 135. She was seen and evaluated by PT/OT and acute rehab was recommended at [facility] from the hospital. Fabiana was transferred to the acute inpt rehab unit at [facility] on 08/01/23 for 3 hours of therapy daily to restore function/independence at or near her level prior to the fall. At admission to rehab Fabiana was noted to have very little facial expression and decreased blink. She had bradykinesia and mild rigidity. Her gait was shuffling with poor balance. She did not have resting tremors. She was started on Sinemet 100/25 BID and she had a good response. Within 24 hours she had improved facial expression and her gait was more fluid. She has had no dyskinesia and she has not had lightheadedness. Systolic BP was consistently elevated, often into the 160-180 range. Diastolics have always been within goal. She was started on Lisinopril on 08/07/23 and the systolics 1 day prior to DC ranged from 118-147. She has no lightheadedness. HGB was mildly decreased at 10.4 at admission to rehab and at DC the HGB is 11.5. A hemoccult stool was negative. Hemoglobin on 07/31/2023 was 14.8 but the BUN/creatinine ratio was 20.5 and I suspect the hemoglobin was falsely elevated secondary to intravascular volume depletion. At the time of discharge the BUN/creatinine ratio is 14.8. Sodium has been low since April 2020 and it has ranged from 131-135 during her hospital stay. The urine osmolality is less than maximally dilute. AM cortisol in 2019 was normal and the Cortrosyn stim test was normal as well. TSH was normal. This is consistent with SIADH and there is no need for treatment at this time. Fabiana did well in therapy. She was seen daily by PT/OT/ST. at the time of discharge she is independent with eating, grooming, upper body dressing, lower body dressing, toilet transfer and toileting. She is supervision/set up for tub/shower transfer. We recommend supervision when she is transferring into the shower for the first 1-2 weeks and if she is doing well she can be independent. She is able to do 8 sit to stands within 30 seconds with no assistance using her upper extremities to push up. She is able to ascend/descend two 6 inch steps and three 4 inch steps with 2 handrails x 5 sets at contact-guard assist. She has ambulated up to 495 feet with a front wheeled walker at dependent on the rehab unit and up to 310 feet on various surfaces (including ramps, carpet and in crowded hallways) with a front wheel walker at light contact-guard assist. She has ambulated up to 150' with a straight cane @ CGA but, has a forward flexed posture and decreased arm swing in the UE not holding the cane. She has been working with St and she has difficulty with short-term memory, concentration and attentiveness. She is able to set up her own pill boxes but, when practising with a check register she made math errors and tended to gale through the activity leading to increased errors. The ST recommends family assist with finances and also recommends continued ST as an OP. Fabiana has been sleeping well at night with no Melatonin. She has a good appetite and is very motivated to stay active. We recommended she attend the exercise program at [facility] once a week for Parkinson's patients and she is looking into this. Fabiana was discharged on 08/12/23 to home and will have [facility] for PT/OT/ST. She and her family has been instructed that she is not to drive. She was given information about a driving assessment program run by [facility] at [facility]. If she is attends this program and they feel she is safe to drive in the community she may start driving again. A referral was made to the program by the prior to [facility]. Fabiana has an appt to follow up with her PCP, Frederick LICONA, next Tuesday. An appt was scheduled for her to follow up with Dr. Anmol Daigle next Tuesday. She will need someone from her family to take her to these appts. The number for Dr. Daigle's office was included in the [facility] paperwork in case family needs to reschedule the appt with Dr. Daigle. I recommend she have a BMP in the next 1-2 weeks since she is now taking Lisinopril and it sometimes can decrease sodium. She is on a low dose of Lisinopril. Physical Exam Const alert, oriented x3 and no apparent distress General Appearance: cooperative HEENT moist oral mucous membranes HEENT Narrative: No thrush Eyes PERRL and EOMs intact bilaterally Eyes Narrative: No scleral icterus, no conjunctival injection, no discharge from the eyes and no mattering of the eyelashes. Neck supple, no JVD, No nodes and no carotid bruits Resp normal respiratory effort, normal air movement and clear to auscultation bilaterally Resp Narrative: No conversational dyspnea Effort and Inspection: Negative for tachypneic Cardio regular rate, regular rhythm, no rub and no gallops Cardio Narrative: She has a 1/6 to 2/6 systolic ejection murmur at the second right intercostal space with no radiation to the left precordium. GI normal to inspection, nondistended, normoactive bowel sounds, soft to palpation and non-tender GI Narrative: Has been having regular bowel movements with no constipation. Extremity no calf tenderness General Extremity: edema bilateral (BL ankles and distal tibia areas. This is thought to be due to venous insufficiency. It is controlled with OC hose. ) Skin General Skin Exam: no breakdown Rashes: no rashes Wounds: Negative for wounds noted Neuro CN's II-XII intact bilaterally Neuro Narrative: Much better facial expression since she has been on Sinemet. Bradykinesia has improved. She is ambulating with a more fluid gait and has no loss of balance using a front wheel walker. Shuffling gait is much improved from admission. Speech: speech normal Psych cooperative and affect normal Psych Narrative: calm and making good eye contact when we are conversing. Appearance: appropriate Weight / BMI Weight Weight: 141 lb 8.588 oz Body Mass Index (BMI) 22.1 ABG / Lab / Microbiology Data 08/10/23 05:41 08/10/23 05:41 Microbiology: Microbiology 08/04/23 12:05 Stool Stool Occult Blood (RUBI) - Final D/C Instructions Discharge Diet: - (no added salt/low salt diet) Weight Bearing Status: Full weight bearing Keep extremity elevated above heart level: Legs Call your doctor if you observe: Fever of 101 or Higher, Shortness of breath, Dizziness, Fainting spells, Chest pain, Increased palpitations (irregular heartbeat), Calf discomfort, Uncontrolled pain and - (STROKE symptoms: facial droop, slurred speech, inability to get words out, weakness on 1 side of the body and not the other, numbness on 1 side of the body and not the other, inability to maintain your balance sitting or standing, vertigo. ) Pending Tests Upon Discharge: none Please Follow Up With: Naren Mendez PA Meaningful Use Info Meaningful Use Diagnoses (Choose all that apply): None applicable Discharge Plan Admission Admit Date/Time: 08/01/23 18:00 Primary Reason for Your Visit: Debility secondary to fall with rhabdomyolysis Attending Provider: Idalia Thompson Primary Care Provider: Naren Mendez Instructions Patient Instructions: Parkinson Common Symptoms, Exercise for Parkinson Disease, Parkinson Disease Mobility Tips, Parkinson Disease- Home Safety, Parkinson Disease Tx Additional Instructions / Restrictions: 1. You have done very well on rehab and we have all enjoyed working with you. You have benefitted from starting medications for Parkinson disease. You have more facial expression, better balance and you are walking with the walker with no loss of balance. I am giving you some information about Parkinson disease. You will need to follow up with a neurologist after leaving rehab to manage the Parkinson disease. I think you should see a neurologist sooner than November. An appt has been made for you to see a neurologist, Dr. Anmol Daigle, next week on 08/16/23 at 11:[address] Daigle's office is located in [place]. His office number is [phone] if your family needs to change the appt to fit their schedule. 2. No driving. There is a chance you can drive again but, you should be evaluated in a van cdl driver assessment program to see if you are safe to drive. The executive secretary social welfare gave you a handout with the information on how to schedule an appt for evaluation if you are interested in driving again. They evaluate vision, reaction time, thought processes, medications, etc. 3. Use your walker if you are out and about in the community but, for walking around your house it is OK to use the cane. 4. When the home health therapist feel you are ready I suggest you consider out patient physical therapy at [facility]. they have an exercise program that is designed especially for patients with Parkinson disease to keep you as functional as possible for as long as possible. If you do not exercise your ability to walk and swallow and take care of yourself will decline. 5. If you or your family has any questions after you leave rehab please do not hesitate to call me. OFFICE: [phone] CELL: [phone] rehab nurses station: [phone] Discharge Orders/Prescriptions Prescriptions: New acetaminophen 325 mg Tablet 650 mg PO Q6H PRN PRN (Reason: Pain Score 1-10) Qty: 0 0RF calcium carbonate 200 mg calcium (500 mg) Tablet,Chewable 500 mg PO BIDCM Qty: 60 0RF Rx Instructions: take with food lisinopril 5 mg Tablet 5 mg PO DAILY Qty: 30 0RF carbidopa-levodopa 25-100 mg Tablet 1 tab PO BIDAC Qty: 60 0RF cholecalciferol (vitamin D3) 125 mcg (5,000 unit) Capsule 125 mcg PO DAILY Qty: 30 0RF Continued pravastatin 40 MG tablet 20 mg PO DAILY Qty: 30 0RF atenolol 25 MG tablet 25 mg PO DAILY Qty: 30 0RF Discontinued melatonin 3 MG tablet 3 mg PO QHS PRN PRN (Reason: SLEEP) Qty: 30 0RF calcium carbonate-vitamin D3 1 TABLET tablet 2 tab PO BIDCM Referrals / Follow Up: Anmol Daigle-Neurology [Other] - 08/16/23 11:00 am (For Parkinson's Take ID, Insurance Care and Medication List ) Naren Mendez PA [Primary Care Provider] - 08/17/23 1:30 pm Disposition Disposition (needs filled in before D/C Order can be placed): Home Health Service Charges/Coding Visit Charges Inpatient E&M: 65809 Disch Hosp >30min
[2023-08-11 18:00] VITALS: BP 147/65; PULSE 58; RESP 15; TEMP 36.6; O2SAT 94
[2023-08-11 22:00] VITALS: BP 133/71; PULSE 55; RESP 15; RESP 16; TEMP 36.5; O2SAT 95; O2SAT 99
[2023-08-11] MEDS: 0.9% Saline Lock 10 ML Syringe IV (22:21)
[2023-08-11] MEDS: Pravastatin 20 MG Tablet PO (22:21)
[2023-08-12 06:00] VITALS: BP 140/58; PULSE 56; RESP 16; TEMP 36.8; O2SAT 95
[2023-08-12] MEDS: Enoxaparin 40 MG/0.4 ML Syringe SC (06:21)
[2023-08-12] MEDS: Carbidopa/Levodopa 25/100 Tablet PO (06:21)
[2023-08-12] MEDS: Cholecalciferol (Vit D3) 125 MCG CAPSULE (5,000 UNITS) PO (08:58)
[2023-08-12] MEDS: Lisinopril 5 MG Tablet PO (08:58)
[2023-08-12] MEDS: Calcium Carbonate 500 MG Tablet PO (08:58)
[2023-08-12] MEDS: Atenolol 25 MG Tablet PO (08:58)
[2023-08-12 10:00] VITALS: BP 110/52; PULSE 60; RESP 16; TEMP 36.7; O2SAT 96
[2023-08-12 13:15] VITALS: BP 110/52; PULSE 60; RESP 16; TEMP 36.7; O2SAT 96
--- NOTE | 2023-08-12 13:15 | NURSING ---
Discharge instructions given to daughter and patient and verbalized understanding.
== END 2023-08-12 13:15 | disposition home health service (06) | DRG 949 ==
PROVIDERS: Admitting Provider Internal Medicine; PCP Physician Assistant; Visit Provider Internal Medicine
DX: T79.6XXD Traumatic ischemia of muscle, subsequent encounter (principal); E87.1 Hypo-osmolality and hyponatremia; G20.A1 Parkinson's disease without dyskinesia, without mention of fluctuations; I10 Essential (primary) hypertension; E78.5 Hyperlipidemia, unspecified; W19.XXXD Unspecified fall, subsequent encounter; F09 Unspecified mental disorder due to known physiological condition; Z87.891 Personal history of nicotine dependence; R26.89 Other abnormalities of gait and mobility; M81.0 Age-related osteoporosis without current pathological fracture; Z79.899 Other long term (current) drug therapy
CPT/HCPCS: 36415; 74230; 80048; 82274; 82550; 83735; 84100; 85014; 85018; 85027; 92507; 92526; 92611; 97110; 97112; 97116; 97129; 97130; 97162; 97166; 97530; 97535; 97802; A4216

== ENCOUNTER 2023-11-16 11:30 | Outpatient (RCR) | payer MEDICARE, SELFPAY ==
--- NOTE | 2023-09-20 11:02 | HP.PTEVAL_ITS ---
Patient's Visit Information Visit Information Visit Information: HUGO ERAZO is a 88 year old F referred to Physical Therapy by MONAE Loja with a diagnosis of B knee pain/PD. Date of Evaluation: 09/20/23 Physical Therapist: SHILA Ontiveros Visit Plan Frequency: 2x /Week Duration: 2 Months Plan: 2X/ week for 8 weeks for LE strength, dual tasking, curb steps and stepping over and object, posture, gait training with HEP Subjective Subjective: She was in hospital July 30 for almost 2 weeks in Rehab, She fell BW right on tailbone. She did not break anything but while she was there she was diagnosed for PD. She is now on PD meds and she is able to get around better. Since she had therapy she is stronger and is walking better. She has B knee pain and they swell also. She had PT at [facility] before she fell for her knees. Her balance is so-so. She stand on 1 foot for 5 seconds and puts one foot in front of the other. Stairs: she has trouble going up and down she goes 2 feet to a stair with 2 railings. She is still driving. She has some trouble to get up out of a chair. She struggles with rolling over in bed and sleeps on her back and just raises the head up when she goes to get up. Pain B knee pain: Pain Intensity (Out of 10): 1 Objective Objective: sit to stand using arms on first attempt. With no arms she can stand up on 3rd attempt and has some retro LOB Gait: walks with shorter strides and wider KAREN, no arm swing and flexed trunk LE MMT: R hip flex 13.7 and L 12.9 R knee ext 12.2 and L 11.5 R knee flex 9.6 and L 6.8 AROM: R knee ext -7 and L -5 and R knee flex 102 and L 111 Bridge 1/4 normal ROM bridge standing opp arm and leg X 3 max and then reverted back to same side or stopped and went to same side as distracted by talking. FGA 12 Stepping over an object min A needed and much encouragement and pt was hesitant Balance/Special Test Scores Functional Gait Assessment Score: 12 % Disability: 60.0000 Lower Extremity Functional Score: 57 Goals Goal 1:: I HEP Goal Time Frame: 4-6 Weeks Goal 2:: Increase LE strength (at the time of the eval: R hip flex 13.7 and L 12.9 R knee ext 12.2 and L 11.5 R knee flex 9.6 and L 6.8). Goal Time Frame: 4-6 Weeks Goal 3:: Increase balance (FGA was 12 at eval) Goal Time Frame: 4-6 Weeks Goal 4:: Walk with increase stride and more upright posture and more heel to toe gait pattern Goal Time Frame: 4-6 Weeks Goal 5:: Be able to perform X 10 on each side standing opp arm and leg without reverting back to same side Goal Time Frame: 4-6 Weeks Goal 6:: Be able to step over an object 5/5 times with least restrictive device with gait belt Goal Time Frame: 4-6 Weeks Rehabilitation Potential Rehabilitation Potential: Good Anticipated Interventions Patient/Client Instruction: Educate patient on: Condition and Plan of Care For the Purpose of:: To increase ROM, To improve nutrient delivery to tissue, To improve muscle performance and motor function, To improve ability to perform ADL's, To increase tolerance to activity/condition/position, To improve performance and independence with ADL's, To improve ability of physical actions for home/community/work/leisure, To improve health of tissue, To increase flexibility/ROM, To improve endurance, To improve balance and To improve safety with gait Therapeutic Exercise to Include: Strength training, Endurance training, Balance training, Coordination, Body mechanics, Postural training, Flexibilty training, Gait and locomotor training, Neuromotor development, Active ROM and Dynamic Lumbar Stabilization For the Purpose of:: To improve muscle performance and motor function, To increase tolerance to activity/condition/position, To improve performance and independence with ADL's, To improve ability of physical actions for home/community/work/leisure, To improve gait and locomotor functions, To improve health of tissue, To increase flexibility/ROM, To improve endurance, To improve balance and To improve safety with gait Functional Training to Include: Gait training For the Purpose of:: To improve gait and locomotor functions and To improve safety with gait Text: Thank you for the opportunity to evaluate your patient. For Medicare and Medicare HMO plans, please review the plan of care and approve it. It will need to be FAXED BACK to us at [phone] for Medicare purposes. For Medicare only, by signing this I certify the plan of care. Please let me know if there are questions or concerns regarding this plan of care. Physician Signature: Date:
--- NOTE | 2023-10-19 13:05 | HP.PTREVAL_ITS ---
Re-Evaluation Intro: M MONAE Erickson, It has been my pleasure to treat HUGO ERAZO over the last 9 visits for B knee pain/PD. Please see the progress note below for an update on the physical therapy plan of care! Subjective Subjective: Still struggles going down stairs and stepping over things. No falls. She feels that she is up moving more and having more energy. She is doing her exercises everyday. No falls. Objective Objective/Function: hip flex 13.7 and L 12.9 R knee ext 12.2 and L 11.5 R knee flex 9.6 and L 6.8). FGA 19 Step over an object X5 with some hesitancy with CGA to min A Recip arm and leg in standing X 20 each leg in sequence Stairs; going up recip with 1 hand rail with confidence but descending stairs with 2 hand rails with step 2 pattern Plan Plan Plan: 2X/ week for 3 weeks for LE strength, dual tasking, curb steps/steps and stepping over and object, posture, gait training with HEP Balance/Gait/Functional tests Balance/Special Test Scores Functional Gait Assessment Score: 19 % Disability: 36.6700 Lower Extremity Functional Score: 43 Goals Goals Goal 1:: I HEP Goal Time Frame: 4-6 Weeks Goal Progress: Goal Met Goal 2:: Increase LE strength (at the time of the eval: R hip flex 13.7 and L 12.9 R knee ext 12.2 and L 11.5 R knee flex 9.6 and L 6.8). Goal Time Frame: 4-6 Weeks Goal 3:: Increase balance (FGA was 12 at eval) Goal Time Frame: 4-6 Weeks Goal Progress: Progressing Goal 4:: Walk with increase stride and more upright posture and more heel to toe gait pattern Goal Time Frame: 4-6 Weeks Goal Progress: Progressing Goal 5:: Be able to perform X 10 on each side standing opp arm and leg without reverting back to same side Goal Time Frame: 4-6 Weeks Goal Progress: Goal Met Goal 6:: Be able to step over an object 5/5 times with least restrictive device with gait belt Goal Time Frame: 4-6 Weeks Goal Progress: Progressing Anticipated Interventions Anticipated Interventions Patient/Client Instruction: Educate patient on: Condition and Plan of Care For the Purpose of:: To increase ROM, To improve nutrient delivery to tissue, To improve muscle performance and motor function, To improve ability to perform ADL's, To increase tolerance to activity/condition/position, To improve performance and independence with ADL's, To improve ability of physical actions for home/community/work/leisure, To improve health of tissue, To increase flexibility/ROM, To improve endurance, To improve balance and To improve safety with gait Therapeutic Exercise to Include: Strength training, Endurance training, Balance training, Coordination, Body mechanics, Postural training, Flexibilty training, Gait and locomotor training, Neuromotor development, Active ROM and Dynamic Lumbar Stabilization For the Purpose of:: To improve muscle performance and motor function, To i ncrease tolerance to activity/condition/position, To improve performance and independence with ADL's, To improve ability of physical actions for home/community/work/leisure, To improve gait and locomotor functions, To improve health of tissue, To increase flexibility/ROM, To improve endurance, To improve balance and To improve safety with gait Functional Training to Include: Gait training For the Purpose of:: To improve gait and locomotor functions and To improve safety with gait Re-Evaluation Ending Re-evaluation ending: Please do not hesitate to contact me at [phone] by phone or if you have questions or concerns regarding this new plan of care! Sincerely, SHILA Ontiveros
--- NOTE | 2023-11-16 12:04 | HP.PTDCSUM ---
Discharge Summary D/C summary: It has been my pleasure to treat HUGO ERAZO referred by MONAE Loja, with the diagnosis of B knee pain/PD for a total of 16 visit(s). Discharge Date: 11/16/23 Please see the following information for a summary of their discharge status. Subjective Subjective: Pt reports 10% improvement from what she was. She still struggles with getting out of a chair but is working on it at home. Pain B knee pain: Pain Intensity (Out of 10): 1 Overall Improvement % Improvement: 100 Objective Objective/Function: FGA 25 Stepping over an object 5/5 times without LOB or having to hold on. Gait: Her walking with arm swing and heel and toe gait pattern is much improved. Goals Goal 1:: I HEP Goal Progress: Goal Met Goal 2:: Increase LE strength (at the time of the eval: R hip flex 13.7 and L 12.9 R knee ext 12.2 and L 11.5 R knee flex 9.6 and L 6.8). Goal 3:: Increase balance (FGA was 12 at eval) Goal Progress: Progressing Goal 4:: Walk with increase stride and more upright posture and more heel to toe gait pattern Goal Progress: Goal Met Goal 5:: Be able to perform X 10 on each side standing opp arm and leg without reverting back to same side Goal Progress: Goal Met Goal 6:: Be able to step over an object 5/5 times with least restrictive device with gait belt Goal Progress: Goal Met Plan Plan: DC PT to HEP and PD class D/C Information Discharge Comments: DC PT to HEP and PD class d/c sentence: If there are questions or concerns regarding this patient's physical therapy, please feel free to call me at [phone]. Thank you for the referral of this patient. Sincerely, Andreia Davis, MPT Balance/Gait/Functional tests Balance/Special Test Scores Functional Gait Assessment Score: 24 % Disability: 20.0000 Lower Extremity Functional Score: 37 Improvement % Improvement: 100
== END 2023-11-16 19:00 | disposition home or self-care (01) ==
LOC: PT 11:30
PROVIDERS: PCP Physician Assistant; Referring Provider Physician Assistant; Visit Provider Physician Assistant
DX: M17.10 Unilateral primary osteoarthritis, unspecified knee (principal); G20.A2 Parkinson's disease without dyskinesia, with fluctuations
CPT/HCPCS: 97110; 97112; 97162; 97530